=== PATIENT | female | born 1945 | race Caucasian/White ===

== ENCOUNTER 2018-02-09 11:27 | Inpatient (IN) ==
[2018-02-09] MEDS ORDERED: Nitroglycerin 0.4 MG TAB.SUBL SL ONE (11:35)
[2018-02-09] MEDS ORDERED: Ondansetron 4 MG/2 ML VIAL IVP ONE (11:35)
[2018-02-09] MEDS ORDERED: *HR* Ticagrelor 90 MG TABLET PO ONE (11:36)
[2018-02-09] MEDS ORDERED: *HR* Heparin 5,000 UNIT/ML VIAL IVP PRN ×2 (11:37)
[2018-02-09] MEDS ORDERED: *HR* Heparin 5,000 UNIT/ML VIAL IVP ONE (11:37)
--- NOTE | 2018-02-09 11:41 | Emergency Department Note ---
Disposition Clinical Impression: STEMI (ST elevation myocardial infarction) Qualifiers: Involved coronary artery: LAD coronary artery Qualified Code(s): I21.02 - ST elevation (STEMI) myocardial infarction involving left anterior descending coronary artery Disposition: Admitted As Inpatient Referrals: NONE,PCP [Primary Care Provider] - Forms: ED Satisfaction Letter Time of Disposition: 11:50 Chest Pain HPI - General Chief Complaint: ED Chest Pain Stated Complaint: Chest Pain Time Seen by Provider: 02/09/18 11:38 Source: patient, EMS Mode of arrival: EMS Limitations: no limitations Vital Signs Reviewed: Yes Nursing Notes Reviewed: Yes - History of Present Illness HPI Narrative: Patient is a 72-year-old female that presents the emergency department for chest pain. Patient states this is been intermittent over the last couple of days. Patient states that she tried taking nitroglycerin yesterday which provided a small amount of relief. States that her chest pain developed today and states that his a heavy pain on her chest and radiates down both arms. Patient denies ever having a previous heart attack but states that she has had angina in the past. Patient states that she has had a catheterization multiple years ago but has never had stents placed. Patient was given aspirin and nitroglycerin in prior to arrival. Family reported that the patient has been living in a home without electricity for the past 2 months. Severity scale (1-10): 9 - Related Data Allergies Allergy/AdvReac Type Severity Reaction Status Date / Time No Known Allergies Allergy Verified 02/09/18 11:49 All systems ED: reviewed and negative except as stated. Cardiovascular: Reports: chest pain Respiratory: Reports: dyspnea Chest Pain PMH - Past Medical History Medical history: Reports: COPD, diabetes, hyperlipidemia Psychiatric history: Reports: anxiety - Social History Smoking Status: Never smoker Alcohol use: Reports: none Drug use: Reports: marijuana Physical Exam - General Limitations: no limitations General appearance: alert, in no apparent distress - Head Head exam: atraumatic, normocephalic - Eye Eye exam: Present: normal appearance, EOMI - Neck Neck exam: Present: normal inspection, full ROM, trachea midline - Respiratory Respiratory exam: Present: normal lung sounds bilaterally. Absent: respiratory distress, wheezes - Cardiovascular Cardiovascular exam: Present: regular rate, normal rhythm, normal heart sounds, +S1, +S2 - Abdominal Exam Abdominal exam: Present: soft, Non-Tender, normal bowel sounds - Neurological Exam Neurological exam: Present: alert, oriented X3 - Psychiatric Psychiatric exam: Present: normal affect, normal mood - Skin Skin exam: Present: warm, dry, intact Course - Reevaluation(s) Reevaluation #2: After discussion with Dr. Jennifer Jaffe a STEMI alert has been called. They are EKG changes and the patient is actively having chest pain. STEMI alert was called at 1147. Patient was started on nitroglycerin, heparin and polenta here in the emergency department. Time: 11:47 Vital Signs Temperature 98.4 F 02/09/18 11:28 Pulse Rate 91 02/09/18 11:28 Respiratory Rate 20 02/09/18 11:28 Blood Pressure 156/93 02/09/18 11:28 O2 Sat by Pulse Oximetry 96 02/09/18 11:28 Temperature 98.4 F 02/09/18 11:28 Pulse Rate 87 02/09/18 12:13 Respiratory Rate 22 02/09/18 12:13 Blood Pressure 160/101 02/09/18 12:13 O2 Sat by Pulse Oximetry 98 02/09/18 12:16 Oxygen Delivery Oxygen Delivery Nasal Cannula Chest Pain - MDM Narrative Medical decision making narrative: Prehospital EKG was concerning for STEMI. There is elevations in lead 3 and aVF. Upon arrival to the emergency Department EKG was repeated after the patient had nitroglycerin in route. The elevations were minimal in lead 3 and aVF had resolved. There are T-wave inversions in the lateral leads which appear to be new at this time. Dr. Jennifer Jaffe was called and the EKGs were sent to her for review. Patient will be admitted to the hospital for cardiac catheterization and further evaluation and management. Patient's troponin was elevated at 0.72. Glucose was 404, chest x-ray was negative. The remainder the laboratory testing was unremarkable. The patient will be admitted for cardiac catheterization further evaluation and management this time. - Medical Records Medical records reviewed: Yes I reviewed the patient's medical records. - Lab Data Lab results reviewed: Yes I reviewed the patient's lab results. Result diagrams: 02/09/18 11:44 02/09/18 11:44 Lab Results 02/09/18 02/09/18 02/09/18 Range/Units 11:44 11:44 11:44 WBC 7.8 (4.3-11.1) K/mcL RBC 5.38 H (3.82-4.97) M/mcL Hgb 15.7 H (11.5-15.4) g/dL Hct 44.8 (35.3-44.9) % MCV 83.3 (83.0-100.0) fL MCH 29.2 (28.0-33.3) pg MCHC 35.0 (31.6-35.5) g/dL RDW 12.9 (11.5-14.5) % Plt Count 214 (140-400) K/mcL MPV 10.8 (9.4-12.4) fL Immature Gran % 1.1 (0-4) % Seg Neutrophils % 64.1 % Lymphocytes % 23.8 % Monocytes % 7.9 % Eosinophils % 2.3 % Basophils % 0.8 % Neutrophils # 5.0 (1.6-8.9) K/mcL Lymphocytes # 1.9 (0.6-4.6) K/mcL Monocytes # 0.6 (0.0-1.3) K/mcL Eosinophils # 0.2 (0.0-0.6) K/mcL Basophils # 0.1 (0.0-0.2) K/mcL PT 11.3 (9.4-12.1) Seconds INR 1.0 APTT 31.6 (26.0-36.0) Seconds Sodium 134 L (136-145) mEq/L Potassium 4.5 (3.5-5.1) mEq/L Chloride 100 (98-107) mEq/L Carbon Dioxide 21 L (23-29) mEq/L BUN 20 (8-23) mg/dL Creatinine 0.89 (0.60-1.20) mg/dL Est GFR ( Amer) > 60 (> 60) Est GFR (Non-Af Amer) > 60 (> 60) BUN/Creatinine Ratio 22 (6-26) Glucose 404 H (70-105) mg/dL Calculated Osmolality 298 (280-300) Calcium 8.9 (8.6-10.3) mg/dL Troponin I 0.72 H* (< 0.04) ng/mL - Radiology Data Radiology results reviewed: Yes I reviewed the patient's radiology results. Chest X-Ray 02/09/18 11:35 IMPRESSION: Negative portable study. D/ / Danielle Ramirez Cha, MD / Danielle Ramirez Cha, MD Interpreting Provider: Danielle Ramirez Cha, MD - EKG Data EKG attestation: Yes I reviewed and interpreted this EKG. EKG results narrative: EKG shows a sinus rhythm at a rate of 93 bpm, MI interval of 156, temperature 144, QTc of 452 and a normal axis. There are some T-wave inversions in the lateral leads as well as minimal elevation in lead 3. This is improved from previous EKG I was able prehospital transmission which showed elevations in lead 3 and aVF. EKG from 12/07/14 showed no ischemic changes.
--- NOTE | 2018-02-09 11:43 | Emergency Department Note ---
Disposition Clinical Impression: ST elevation myocardial infarction (STEMI) Qualifiers: Involved coronary artery: LAD coronary artery Qualified Code(s): I21.02 - ST elevation (STEMI) myocardial infarction involving left anterior descending coronary artery Disposition: Still a Patient Referrals: NONE,PCP [Primary Care Provider] - General Adult HPI - General Chief complaint: ED Chest Pain Stated complaint: Chest Pain Time Seen by Provider: 02/09/18 11:38 Source: EMS Limitations: no limitations - History of Present Illness Pain Scale: 9 Past Medical History - Past Medical History Medical history: Reports: COPD, diabetes, hyperlipidemia Psychiatric history: Reports: anxiety - Social History Smoking Status: Never smoker Smokeless Tobacco Status: No Alcohol use: Reports: none Drug use: Reports: marijuana Physical Exam - General Limitations: no limitations General appearance: alert, in no apparent distress Course - Reevaluation(s) Reevaluation #1: Attestation note I examined this patient and my medical decision-making was reviewed with the emergency medicine resident. I agree with the documented findings, disposition and treatment plan as described except to the extent set forth below. Patient seen with emergency medicine resident Dr. Wes Lau, Please see a copy of his note for details of the H&P, ED evaluation, management and disposition. I have independently evaluated the patient and confirmed appropriate portions of the history and physical exam. Briefly: 72-year-old female by EMS for chest pain. It was called in this possible STEMI alert. EKG transferred by EMS did show ST elevation in leads 3 and aVF. However upon arrival in the emergency department after nitroglycerin was given by EMS crew patient only has mild ST elevation in lead 3 alone but T- wave inversions rectal lateral leads which appear to be new. Dr. Jaffe's scanning manager on-call we both securely tested the image of the EKG she will review. She requested relented and nitroglycerin and heparin drip which is being accomplished screening labs chest x-ray. Providing 45 minutes critical care service for this patient. Admission is anticipated however we have not excluded the possibility of going to the catheter lab. Disposition pending. Time: 11:41 Vital Signs Temperature 98.4 F 02/09/18 11:28 Pulse Rate 91 02/09/18 11:28 Respiratory Rate 20 02/09/18 11:28 Blood Pressure 156/93 02/09/18 11:28 O2 Sat by Pulse Oximetry 96 02/09/18 11:28 Temperature 98.4 F 02/09/18 11:28 Pulse Rate 91 02/09/18 11:28 Respiratory Rate 20 02/09/18 11:28 Blood Pressure 156/93 02/09/18 11:28 O2 Sat by Pulse Oximetry 96 02/09/18 11:28 Oxygen Delivery Oxygen Delivery Room Air
[2018-02-09] MEDS ORDERED: Heparin 25,000 UNIT/500 ML D5W 25,000 UNIT/500 ML BAG IVC SCH (11:45)
[2018-02-09] MEDS ORDERED: *HR* LORazepam 2 MG/ML VIAL IVP ONE (11:49)
[2018-02-09 11:50] LABS: Basophils # 0.1 K/mcL (0.0-0.2); Basophils % 0.8 %; Eosinophils # 0.2 K/mcL (0.0-0.6); Eosinophils % 2.3 %; Hematocrit 44.8 % (35.3-44.9); Hemoglobin 15.7 g/dL (11.5-15.4); Immature Granulocytes % 1.1 % (0-4); Lymphocytes # 1.9 K/mcL (0.6-4.6); Lymphocytes % 23.8 %; Mean Corpuscular Hemoglobin 29.2 pg (28.0-33.3); Mean Corpuscular Volume 83.3 fL (83.0-100.0); Mean Platelet Volume 10.8 fL (9.4-12.4); Monocytes # 0.6 K/mcL (0.0-1.3); Monocytes % 7.9 %; Platelet Count 214 K/mcL (140-400); Red Blood Count 5.38 M/mcL (3.82-4.97); Red Cell Distribution Width 12.9 % (11.5-14.5); Segmented Neutrophils % 64.1 %
[2018-02-09 11:57] LABS: Prothrombin Time 11.3 Seconds (9.4-12.1)
[2018-02-09 12:00] LABS: Activated Partial Thrombo Time 31.6 Seconds (26.0-36.0)
[2018-02-09] MEDS ORDERED: 0.9 % Sodium Chloride 1,000 ML ONE ×4 (12:00→19:44)
[2018-02-09 12:14] LABS: Troponin I 0.72 ng/mL (< 0.04)
[2018-02-09] MEDS ORDERED: *HR* Midazolam HCl 2 MG/2 ML VIAL ONE (12:21)
[2018-02-09] MEDS ORDERED: *HR* FentaNYL (PF) 100 MCG/2 ML VIAL ONE (12:22)
[2018-02-09] MEDS ORDERED: Heparin 1,000 UNITS/500 mL 500 ML ONE (12:22)
[2018-02-09] MEDS ORDERED: Nitroglycerin 1,000 MCG/10 ML VIAL IV ONE ×2 (12:22→13:02)
[2018-02-09] MEDS ORDERED: ISOVUE-370 200 ML INFUS..BTL IV ONE (12:22)
[2018-02-09] MEDS ORDERED: *HR* Heparin 10,000 UNIT/10 ML VIAL ONE (12:22)
[2018-02-09 12:34] LABS: BUN/Creatinine Ratio 22 (6-26); Blood Urea Nitrogen 20 mg/dL (8-23); Calcium 8.9 mg/dL (8.6-10.3); Carbon Dioxide 21 mEq/L (23-29); Chloride 100 mEq/L (98-107); Glucose 404 mg/dL (70-105); Osmolality,Calculated 298 (280-300); Potassium 4.5 mEq/L (3.5-5.1); Sodium 134 mEq/L (136-145); eGFR For African Americans > 60 (> 60); eGFR For Non-African Americans > 60 (> 60)
[2018-02-09] MEDS ORDERED: *HR* Bivalirudin 250 MG VIAL IVC ONE ×2 (12:47→13:19)
[2018-02-09] MEDS ORDERED: 0.9 % Sodium Chloride 250 ML ONE ×3 (12:58→13:23)
[2018-02-09] MEDS ORDERED: *HR* Adenosine 6 MG/2 ML VIAL IVP ONE ×2 (13:00→13:02)
[2018-02-09] MEDS ORDERED: Ondansetron 4 MG/2 ML VIAL ONE (13:25)
--- NOTE | 2018-02-09 14:05 | Cardiology History & Physical ---
Date of Encounter: 02/09/18 Time of Encounter: 13:58 Assessment and Plan (1) ST elevation myocardial infarction (STEMI) Current Visit: Yes Status: Acute The assessment and plan as outlined above was discussed with the patient and/or family members who expressed understanding and agreement. All questions were answered. Presents with STEMI. Emergent LHC recommended. Asa, statin, and bb. Patient agreed with procedure. Qualifiers: Involved coronary artery: LAD coronary artery Qualified Code(s): I21.02 - ST elevation (STEMI) myocardial infarction involving left anterior descending coronary artery (2) DM type 2 (diabetes mellitus, type 2) Current Visit: No Status: Chronic The assessment and plan as outlined above was discussed with the patient and/or family members who expressed understanding and agreement. All questions were answered. Patient without diabetic medications for long period of time. Will consult hospitalist to assist in medication recommendation. Will need to establish with PCP. Qualifiers: Diabetes mellitus long chain beamer insulin use: without longterm use Diabetes mellitus complication status: without complication Qualified Code(s): E11.9 - Type 2 diabetes mellitus without complications History of Present Illness Chief complaint: Chest pain HPI: Ms. Nichole is a 72 year old female with past medical history of HTN , HLD and DM type II who presented with increasing chest pain. C/o intermittent chest pain radiating to her back over the last three days. 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 She also noticed nausea and SOB. On arrival to the ED EKG completed and showed ST elevation. Emergent LHC recommended. She denied prior history of CAD. Reports living without electricity or utilities for several months. Family states that she has not been able to obtain medications for her diabetes for a long time. Past Med Surg Social Fam HX - Past Medical History Attestation: Yes The following information was validated with the patient. Medical history: COPD, diabetes, hyperlipidemia, hypertension Psychiatric history: anxiety - Social History Smoking Status: Never smoker Smokeless Tobacco Status: No Alcohol use: none Drug use: marijuana Medications and Allergies No Known Home Drugs 02/09/18 [History] 3 Allergy/AdvReac Type Severity Reaction Status Date / Time No Known Allergies Allergy Verified 02/09/18 13:31 All Systems Review: The remainder of the systems were reviewed and are negative Physical Examination Vital Signs Temp Pulse Resp BP Pulse Ox 02/09/18 12:16 98 02/09/18 12:13 87 22 160/101 99 02/09/18 11:57 97 18 157/99 97 02/09/18 11:28 98.4 F 91 20 156/93 96 Intake and Output 02/08/18 02/09/18 02/09/18 23:59 07:59 15:59 Other: Weight 99.79 kg Patient Weight 02/09/18 23:59 Weight 99.79 kg General: Conversant, No Apparent Distress HEENT: Atraumatic, Normocephaly, Mucus Membranes Moist Neck: No JVD, Normal carotid pulses Cardiac: Reg Rate and Rhythm, Normal S1 and S2, No Murmur Lungs: Normal Breath Sounds, No Wheeze, Rales, Rhonchi Neuro: Alert and responsive, No focal deficits noted Abdomen: Soft, Non-Tender Skin: No rashes noted on visualized skin Musculoskeletal: No Chest Wall Tenderness Extremities: No Clubbing, No Cyanosis, No Edema, Normal Pulses Results 02/09/18 11:44 02/09/18 11:44 - EKG Interpretation EKG results cardiology: personally reviewed
[2018-02-09] MEDS ORDERED: Nitroglycerin 0.4 MG TAB.SUBL SL PRN (14:07)
[2018-02-09] MEDS ORDERED: *HR* Dextrose 50 % in Water (Syg) 50 ML SYRINGE IVP PRN (14:07)
[2018-02-09] MEDS ORDERED: Dextrose Gel 15 GM/37.5 ML TUBE PO PRN ×2 (14:07)
[2018-02-09] MEDS ORDERED: D5% in Water 1,000 ML IVC PRN (14:07)
[2018-02-09] MEDS ORDERED: Abciximab 9 MG in 0.9 % Sodium Chloride 250 ML IVC SCH (14:15)
--- NOTE | 2018-02-09 14:27 | Internal Medicine Consult Note ---
Date of Encounter: 02/09/18 Time of Encounter: 14:27 - Assessment and plan (1) ST elevation myocardial infarction (STEMI) Current Visit: Yes Status: Acute Assessment and plan: Patient presenting with inferior wall ST segment elevation pleuritic chest pain. Status post percutaneous coronary intervention with drug-eluting stent to mid circumflex. Require staged PCI to LAD. Continue management per cardiology recommendations. On dual antiplatelet therapy. On statin. No longer having chest pain at this time. Qualifiers: Involved coronary artery: left circumflex coronary artery Qualified Code(s) : I21.21 - ST elevation (STEMI) myocardial infarction involving left circumflex coronary artery (2) DM type 2 (diabetes mellitus, type 2) Current Visit: Yes Status: Chronic Assessment and plan: Uncontrolled. Not taking any medications. Blood sugars were 404 in the ED. Will monitor blood sugars closely. Place her on sliding scale insulin coverage and long-acting insulin. Check A1c level. Diabetic diet when patient is able to eat Qualifiers: Diabetes mellitus intermodal customer service insulin use: without intermodal customer service use Diabetes mellitus complication status: with hypoglycemia Diabetes mellitus complication detail: without coma Qualified Code(s): E11.649 - Type 2 diabetes mellitus with hypoglycemia without coma (3) Essential (primary) hypertension Current Visit: Yes Status: Chronic Assessment and plan: Uncontrolled. Patient has been placed on Zestril and Toprol per cardiology recommendations. (4) Cardiomyopathy Current Visit: Yes Status: Acute Assessment and plan: Patient has year for 45% per cardiac catheterization report. We will get 2-D echocardiogram. Follow cardiology recommendations. Qualifiers: Cardiomyopathy type: ischemic Qualified Code(s): I25.5 - Ischemic cardiomyopathy - Time Spent With Patient Total time spent is greater than 50% in coordination of care (as documented) at patient's floor/unit and/or counseling patient: Internal Medicine - CN: HPI - Data of Consult Patient: new to practice Consult date: 02/09/18 Requesting Physician: Jennifer Jaffe - Consult Narrative Reason for consult: Diabetes management History of present illness: Ms. Nichole is a 72 year old female patient with a history of essential hypertension, diabetes who has not followed up with physician for at least 2 years and has not been taking her medications presented to the ER with complaints of chest pain. Symptoms began 2 days back but she developed severe chest pain last night and called EMS. She was suspected of having ST elevation OH and underwent left heart catheterization. She has been found to have left circumflex stenosis and LAD stenosis. She underwent stent placement to left circumflex artery. She is scheduled for a staged for PCI to left anterior descending artery later. She has been found to have elevated blood sugars and so we have been consulted to help manage this. Patient was previously on oral medications for her diabetes. She denies any shortness of breath at this time but did have shortness of breath with her chest pain earlier. She also has occasional lower extremity swelling. She felt nauseated while she was down in the catheter lab. She also complains of chronic swelling in her right shoulder region with decreased range of motion. Past Med Surg Social Fam HX - Past Medical History Attestation: Yes The following information was validated with the patient. Source: patient Medical history: COPD, diabetes, hyperlipidemia, hypertension Psychiatric history: anxiety - Social History Smoking Status: Never smoker Smokeless Tobacco Status: No Alcohol use: none Drug use: marijuana - Additional Family History Additional family history: Family history reviewed and found to be noncontributory at this time. All systems: reviewed and no additional remarkable complaints except as stated - Constitutional Constitutional: malaise - EENT Eyes: as per HPI Ears: as per HPI Nose, mouth and throat: as per HPI - Cardiovascular Cardiovascular ROS IM: chest pain - Respiratory Respiratory: dyspnea, no cough, no change in phlegm color, no pain with cough - Gastrointestinal Gastrointestinal: nausea, no abdominal pain, no hematemesis, no vomiting - Musculoskeletal Musculoskeletal ROS IM: as per HPI, joint swelling - Neurological Neurological ROS: no abnormal movements, no abnormal speech, no restless legs, no tingling, no tremor(s), no vertigo Internal Medicine - CN: Meds No Known Home Drugs 02/09/18 [History] 3 Allergy/AdvReac Type Severity Reaction Status Date / Time No Known Allergies Allergy Verified 02/09/18 13:31 Internal Medicine - CN: Exam - Constitutional Vitals: Temp Pulse Resp BP Pulse Ox 98.4 F 87 22 160/101 98 02/09/18 11:28 02/09/18 12:13 02/09/18 12:13 02/09/18 12:13 02/09/18 12:16 General appearance IM: Present: cooperative, mild distress, A&O X 3, morbidly obese, answers questions appropriately - Eye Eye exam: Present: EOMI, PERRL - Respiratory Respiratory exam: Present: prolonged expiratory phase. Absent: chest wall tenderness, decreased breath sounds, rales, respiratory distress, wheezes - Cardiovascular Cardiovascular exam IM: Present: RRR, +S1, +S2. Absent: tachycardia - GI/Abdominal GI/Abdominal exam IM: Present: normal bowel sounds, soft, no peritoneal signs. Absent: tenderness - Expanded Upper Extremities Exam Shoulder exam: Present: swelling. Absent: full ROM - Psychiatric Psychiatric exam: Present: anxious - Skin Skin exam IM: Present: dry, intact Internal Medicine - CN: Reslt - Labs CBC & Chem 7: 02/09/18 11:44 02/09/18 11:44 - ABG Interpretation ABG results: PT/INR, D-dimer PT 11.3 Seconds (9.4-12.1) 02/09/18 11:44 Consult Discharge Plan - Plan Referrals: NONE,PCP [Primary Care Provider] -
--- NOTE | 2018-02-09 14:33 | Invasive Diagnostic Lab Proc ---
Name: Laquita Nichole Date of Study: 02/09/2018 Date: 1945 Ht: 61.8in Medical Record#: [id number] Age: 72 Wt: 219.80lb Gender: Female BSA: 1.99 Order #: [id number] BMI: 40.45 Physicians Procedure Physician: Jennifer Jaffe MD, [facility] Referring MD: Referring MD: Staff Name Position Time In JavanLeyda RN Monitor 12:42 PM Esteban James RN Military Technology Specialist 12:42 PM Mela Brennan RT (R) Scrub 12:42 PM Indications Indication STEMI Procedures Performed Procedure L HRT ARTERY/VENTRICLE ANGIO PRQ CARD REVASC TX 1 VSL Pre-Procedure Checklist Informed consent is complete signed and on chart. H&P is on chart. ID band is on and ID verified with patient. Patient NPO for procedure The procedure was described for the patient and questions were answered. Blood Pressure: 160/101 ECG is on chart. Rhythm: Sr w/ bbb Plan of Care Patient will tolerate the procedure without complications. Adequate level of comfort will be maintained. Hemodynamics will remain stable Patient will recover from procedure without complications. Respiratory function will be maintained. Cardiac rhythm will remain stable. Patient temperature will be maintained. Patient and/or family have verbalized understanding of the procedure. Patient Education Chief Complaint/Reason for Test: Cardiac Cath Developmental Category: Geriatric (65+ years) Developmentally Appropriate for Age: Yes Learning Barriers: None Education Needs: Procedure Education Method: Verbal Information Taught: Cardiac Cath Educational Evaluation: Able to repeat information Intravenous Access Time IV Size Location DC'd Fluid/Drip Rate Units RN 12:31 PM 20g 1 08/15" Patent On Arrival Lt Antecubital 0.9NaCl 25 ml/hr Esteban James RN Allergies NKDA NKA No Known Allergies Vital Signs Time BP (mmHg) HR (bpm) O2 Sat. RR (bpm) LOC 12:42 PM / % 5 = Fully awake and oriented or at pre-proc level 12:42 PM / % 4 = Oriented but drowsy 12:58 PM / % 4 = Oriented but drowsy 01:13 PM / % 4 = Oriented but drowsy 01:28 PM / % 4 = Oriented but drowsy 12:40 PM 149 / 84 91 98 % 12:45 PM 126 / 61 84 95 % 12:50 PM 122 / 60 87 96 % 12:55 PM 116 / 54 79 97 % 12:57 PM 114 / 59 77 96 % 01:00 PM 83 / 32 77 94 % 01:02 PM 86 / 45 80 95 % 01:05 PM 65 / 32 79 94 % 01:10 PM 80 / 28 77 96 % 01:12 PM 76 / 36 76 92 % 01:15 PM 77 / 28 76 94 % 01:20 PM 120 / 59 76 95 % 01:25 PM 114 / 67 81 94 % 01:30 PM 130 / 80 106 91 % 01:35 PM 108 / 62 91 95 % 01:40 PM 102 / 56 83 95 % 01:45 PM 94 / 58 79 97 % 01:50 PM 107 / 55 % Procedural Medications Time Medication Dose Units Method Given By 12:42 PM Oxygen 2 L/min nasal cannula Esteban James RN 12:42 PM Versed 2 mg Intravenous HenthorneEsteban RN 12:42 PM Fentanyl 50 mcg Intravenous JassthornEsteban hernandez RN 12:43 PM Lidocaine 2% 20 ml Subcutaneous Jennifer Jaffe MD, FACC 12:48 PM Angiomax 0.75mg/kg bolus: 15 ml Intravenous Esteban James RN 12:49 PM Angiomax 1.75mg/kg/hr: 35 ml/hr Intravenous Esteban James RN 12:58 PM Nitroglycerin 200 mcg Intracoronary Jennifer Jaffe MD, FACC 12:58 PM Nitroglycerin 200 mcg Intracoronary Jennifer Jaffe MD, FACC 01:01 PM Reopro Bolus: 12.4 ml Intracoronary Jennifer Jaffe MD, FACC 01:04 PM Nitroglycerin 200 mcg Intracoronary Jennifer Jaffe MD, FACC 01:05 PM Nitroglycerin 200 mcg Intracoronary Jennifer Jaffe MD, FACC 01:05 PM Adenosine 400 mcg Intracoronary Jennifer Jaffe MD, FACC 01:06 PM Adenosine 400 mcg Intracoronary Jennifer Jaffe MD, FACC 01:06 PM Nitroglycerin 200 mcg Intracoronary Jennifer Jaffe MD, FACC 01:17 PM Adenosine 400 mcg IntracoronJennifer Avendano MD, FACC 01:19 PM Dopamine 5 mcg/kg/min Intravenous Esteban James RN 01:19 PM Adenosine 400 mcg Intracoronary Esteban James RN 01:20 PM Nitroglycerin 200 mcg Intracoronary Jennifer Jaffe MD, FACC 01:28 PM Zofran 8 mg Intravenous Leyda Edouard RN 01:35 PM Dopamine mg Dc'd Esteban James RN 01:45 PM Reopro 9mg/250ml D5W: 10 mcg/min Intravenous Esteban James RN 01:46 PM Angiomax 1.75mg/kg/hr: ml Dc'd Esteban James RN 01:20 PM Fentanyl 50 mcg Intravenous Esteban James RN ASA Classification: CLASS II- Mild systemic disease (i.e. well-controlled diabetes, hypertension, asthma, cigarette smoking) Ben Score Preprocedure Postprocedure Activity 2- Moves 4 extremities sustained head lift Activity 2- Moves 4 extremities sustained head lift Circulation 2- SBP +/= 20 points of pre-anesthetic level Circulation 2- SBP +/= 20 points of pre-anesthetic level Consciousness 2- Awake and alert oriented x 3 Consciousness 2- Awake and alert oriented x 3 O2 Saturation 2- Able to maintain O2 satruation of 92% on room air O2 Saturation 2- Able to maintain O2 satruation of 92% on room air Respiratory 2- Able to deep breathe and cough well Respiratory 2- Able to deep breathe and cough well Total Score 10 Total Score 10 Contrast Agent: Isovue Diagnostic Contrast: 183 ml Total Contrast: 183 ml Fluoro Dose: 84788 mGy Activated Clotting Time Time Seconds to Clot 02:02 PM 390 Procedure Log Time Note Enter By 12:17 PM CathStat 12:31 PM 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 well-controlled diabetes, hypertension, asthma, cigarette smoking) scoates 12:31 PM Meet and greet completed scoates 12:31 PM Sign in performed according to hospital policy. scoates 12:32 PM Procedure start 12:32 scoates 12:39 PM Vitals capture started with the following parameters, Patient=Adult, Interval=5 min, Initial Sispdigv=789 mmHg, Deflation Rate=5 mmHg, Cuff placed on Right Arm 12:40 PM Hair removed from procedure site in emergency department using clippers. Bilateral groin prepped with Chloraprep by Leyda Edouard RN, then patient was draped. Skin intact. scoates 12:40 PM HR=91 bpm, RYWR=100/84 mmhg, SpO2=98.0 %, Comment=sr bbb 12:41 PM Time out performed according to hospital policy scoates 12:42 PM Time: 12:42 Oxygen on at 2 L/min per nasal cannula by Esteban James RN scoates 12:42 PM Time: 12:42 Patient comfortable and pain free:no. Pt states that her chest pain in 03/21 at this time scoates 12:42 PM Time: 12:42LOC: 5 = Fully awake and oriented or at pre-proc level scoates 12:42 PM Time: 12:42 Versed 2 mg Intravenous Given by Esteban James RN scoates 12:42 PM Time: 12:42 Fentanyl 50 mcg Intravenous Given by Esteban James RN scoates 12:42 PM Leyda Edouard RN Position: Monitor Time in: 12:42 scoates 12:42 PM Esteban James RN Position: Military Technology Specialist Time in: 12:42 scoates 12:42 PM Mela Brennan RT (R) Position: Scrub Time in: 12:42 scoates 12:42 PM Patient charges- Angio tray pack, Navilyst 3mm J, Pulse Oximetry and ACIST tubing and transducer scoates 12:42 PM Case Delayed No, Stemi scoates 12:43 PM Pressure channel 1 zero failed. 12:43 PM Pressure channel 1 zero failed. 12:43 PM Pressure channel 1 zeroed. 12:43 PM Time: 12:43 20 ml Lidocaine 2% to right groin Subcutaneous Given by Jennifer Jaffe MD, [facility] scoates 12:44 PM Access obtained by percutaneous puncture. 6Fr 10cm Terumo Stringer sheath placed in right Femoral artery. [id number] scoates 12:44 PM 5Fr FL 4 catheter inserted over the wire [facility] scoates 12:45 PM HR=84 bpm, IJMU=372/61 mmhg, SpO2=95.0 % 12:45 PM Recorded Pressure: Ao, HR=76, Condition=Condition 1 (Aorta) Ao 127/83/103 12:46 PM LCA angiography performed in multiple views. scoates 12:46 PM Catheter removed scoates 12:46 PM 5Fr FR 4 catheter inserted over the wire DN scoates 12:46 PM RCA angiography performed in multiple views. scoates 12:47 PM Recorded Pressure: Ao, HR=83, Condition=Condition 1 (Aorta) Ao 130/47/101 12:48 PM Catheter removed scoates 12:48 PM PCI Status Emergency scoates 12:48 PM 6Fr XB LAD 3.5 [place] Bright-Tip guide catheter was used to cannulate the PCI vessel successfully. reused? No scoates 12:48 PM .014 Prowater 180cm guide wire across target lesion- successful. reused? No scoates 12:48 PM Inflation device was opened. scoates 12:49 PM Time: 12:48 Angiomax 0.75mg/kg bolus: 15 ml Intravenous Given by Esteban James RN Diaz pump scoates 12:49 PM Time: 12:49 Angiomax 1.75mg/kg/hr: 35 ml/hr Intravenous Given by Esteban James RN Diaz pump scoates 12:49 PM Coronary Dominance: right scoates 12:49 PM Lesion found in Mid Circumflex. Pre Stenosis: 99 Pre BING Flow: 2: Partial Flow/Perfusion (> 1 but < 3) scoates 12:49 PM 2.5 mm x 15 mm Emerge Monorail balloon across target lesion- successful. reused? No scoates 12:50 PM Recorded Pressure: Ao, HR=88, Condition=Condition 1 (Aorta) Ao 144/79/108 12:50 PM HR=87 bpm, DKLJ=692/60 mmhg, SpO2=96.0 %, Comment=sr bbb 12:51 PM Balloon inflated @ 10 geri for 20 seconds scoates 12:51 PM Recorded Pressure: Ao, HR=87, Condition=Condition 1 (Aorta) Ao 134/85/108 12:52 PM Balloon inflated @ 12 geri for 20 seconds scoates 12:54 PM Balloon catheter removed intact. scoates 12:55 PM HR=79 bpm, ANAW=651/54 mmhg, SpO2=97.0 %, Comment=sr bbb 12:55 PM 3.5mm x 28mm Synergy drug-eluting stent across target lesion- successful Lot #[id number] scoates 12:55 PM Stent deployed @ 12 geri for 30 seconds scoates 12:56 PM Stent balloon reinflated @ 16 geri for 15 seconds scoates 12:56 PM NIBP STAT measurement started. 12:57 PM Stent delivery system removed intact. scoates 12:57 PM HR=77 bpm, GEMZ=011/59 mmhg, SpO2=96.0 %, Comment=sr bbb 12:58 PM Time: 12:42LOC: 4 = Oriented but drowsy scoates 12:58 PM Time: 12:42 Patient comfortable and pain free: Yes scoates 12:58 PM Time: 12:58 Nitroglycerin 200 mcg Intracoronary Given by Jennifer Jaffe MD, [facility] scoates 12:58 PM Time: 12:58 Nitroglycerin 200 mcg Intracoronary Given by Jennifer Jaffe MD, [facility] scoates 12:58 PM Recorded Pressure: Ao, HR=79, Condition=Condition 1 (Aorta) Ao 122/76/97 01:00 PM HR=77 bpm, NIBP=83/32 mmhg, SpO2=94.0 % 01:01 PM Time: 13:01 Reopro Bolus: 12.4 ml Intracoronary Given by Jennifer Jaffe MD, [facility] Diaz pump scoates 01:01 PM NIBP STAT measurement started. 01:02 PM HR=80 bpm, NIBP=86/45 mmhg, SpO2=95.0 %, Comment=sr bbb 01:04 PM pt is having 10/10 chest pain scoates 01:04 PM Stent delivery system removed intact. scoates 01:05 PM HR=79 bpm, NIBP=65/32 mmhg, SpO2=94.0 %, Comment=sr bbb 01:05 PM Pressure channel 1 zeroed. 01:05 PM Time: 13:04 Nitroglycerin 200 mcg Intracoronary Given by Jennifer Jaffe MD, [facility] scoates 01:05 PM Time: 13:05 Nitroglycerin 200 mcg Intracoronary Given by Jennifer Jaffe MD, [facility] scoates 01:06 PM Time: 13:05 Adenosine 400 mcg Intracoronary Given by Jennifer Jaffe MD, [facility]AC scoates 01:06 PM Time: 13:06 Adenosine 400 mcg Intracoronary Given by Jennifer Jaffe MD, [facility] scoates 01:06 PM Time: 13:06 Nitroglycerin 200 mcg Intracoronary Given by Jennifer Jaffe MD, [facility] scoates 01:06 PM Recorded Pressure: Ao, HR=77, Condition=Condition 1 (Aorta) Ao 89/49/68 01:07 PM 2.5x15 balloon reinserted scoates 01:08 PM Recorded Pressure: Ao, HR=77, Condition=Condition 1 (Aorta) Ao 91/63/76 01:09 PM NIBP STAT measurement started. 01:10 PM HR=77 bpm, NIBP=80/28 mmhg, SpO2=96.0 %, Comment=sr bbb 01:11 PM Recorded Pressure: Ao, HR=76, Condition=Condition 1 (Aorta) Ao 91/57/73 01:11 PM 2.5x15 balloon removed not reinflated scoates 01:12 PM NIBP STAT measurement started. 01:12 PM 3.75 mm x 20mm NC Trek Rx balloon across target lesion- successful. reused? No scoates 01:12 PM HR=76 bpm, NIBP=76/36 mmhg, SpO2=92.0 %, Comment=sr bbb 01:13 PM Time: 12:58 Patient comfortable and pain free: Yes scoates 01:13 PM Time: 12:58LOC: 4 = Oriented but drowsy scoates 01:14 PM Recorded Pressure: Ao, HR=76, Condition=Condition 1 (Aorta) Ao 99/63/79 01:14 PM Balloon inflated @ 18 geri for 15 seconds scoates 01:15 PM HR=76 bpm, NIBP=77/28 mmhg, SpO2=94.0 %, Comment=sr bbb 01:16 PM Balloon catheter removed intact. scoates 01:17 PM Time: 13:17 Adenosine 400 mcg Intracoronary Given by Jennifer Jaffe MD, [facility] scoates 01:17 PM Recorded Pressure: Ao, HR=84, Condition=Condition 1 (Aorta) Ao 99/66/81 01:19 PM Time: 13:19 Dopamine 5 mcg/kg/min Intravenous Given by Esteban James RN Diaz pump scoates 01:19 PM Time: 13:19 Adenosine 400 mcg Intracoronary Given by Esteban James RN scoates 01:19 PM Recorded Pressure: Ao, HR=79, Condition=Condition 1 (Aorta) Ao 128/71/96 01:20 PM Time: 13:20 Fentanyl 50 mcg Intravenous Given by Esteban James RN scoates 01:20 PM HR=76 bpm, RQEQ=426/59 mmhg, SpO2=95.0 %, Comment=sr bbb 01:21 PM Time: 13:20 Nitroglycerin 200 mcg Intracoronary Given by Jennifer Jaffe MD, [facility] scoates 01:21 PM Recorded Pressure: Ao, HR=77, Condition=Condition 1 (Aorta) Ao 128/80/99 01:21 PM Time: 13:13 Patient comfortable and pain free: No scoates 01:21 PM Complaint: Pain; Pain Score: 10 (1-10); Pain Location: Chest; Relief Measure: Medication; Response: . scoates 01:25 PM HR=81 bpm, ZRQV=060/67 mmhg, SpO2=94.0 % 01:28 PM Time: 13:13LOC: 4 = Oriented but drowsy scoates 01:28 PM Time: 13:28 Zofran 8 mg Intravenous Given by Leyda Edouard RN scoates 01:28 PM Leyda Green RN from ICU arrived to assist with procedure scoates 01:29 PM Recorded Pressure: LV, OU=833, Condition=Condition 1 (Left Ventricle) LV 157/3/21 01:29 PM Recorded Pressure: LV, Ao, UR=504, Condition=Condition 1 (Left Ventricle) LV 130/62/85, (Aorta) Ao 118/90/105 01:30 PM Balloon catheter removed intact. scoates 01:30 PM Guide catheter removed intact. scoates 01:30 PM Guide wire removed intact. scoates 01:30 PM LR=688 bpm, IHZN=346/80 mmhg, SpO2=91.0 %, Comment=sr bbb 01:30 PM 5Fr Pigtail catheter inserted over the wire [facility] scoates 01:30 PM Catheter selectively placed in left ventricle scoates 01:30 PM Bolus angiogram of left Ventricle complete: 8 ml/sec for a total of 24 mls scoates 01:30 PM Catheter removed scoates 01:30 PM Bolus angiogram of right Femoral complete: 4 ml/sec for a total of 7 mls scoates 01:32 PM Procedure completed at 13:32 02/09/2018 scoates 01:32 PM Did you address BING flow and Dominance? Yes scoates 01:32 PM Sign out completed: Radiation Dose 1636 mGy, 73676 cGy/cm2 Fluoro Time: 10.8 Isovue 370 - 200ml contrast 183 ml given by Jennifer Jaffe MD, [facility]. Complications: NoneCardiac Rehab Consult needed: YesConfirmed administered medications: Yes scoates 01:33 PM Sheath left in place to be pulled on floor/holding area scoates 01:33 PM Estimated Blood Loss: less than 20cc scoates 01:33 PM Post ECG Sr w/ bbb scoates 01:35 PM HR=91 bpm, MEYW=406/62 mmhg, SpO2=95.0 % 01:35 PM Time: 13:35 Dopamine mg Dc'd Given by Esteban James RN Diaz pump scoates 01:40 PM HR=83 bpm, QZMX=549/56 mmhg, SpO2=95.0 %, Comment=sr bbb 01:41 PM Time: 13:21 Patient comfortable and pain free: No scoates 01:43 PM Time: 13:28LOC: 4 = Oriented but drowsy scoates 01:43 PM attempted to change to a longer sheath, unable to advance scoates 01:44 PM standard sheath reinserted scoates 01:45 PM HR=79 bpm, NIBP=94/58 mmhg, SpO2=97.0 %, Comment=sr bbb 01:46 PM Time: 13:45 Reopro 9mg/250ml D5W: 10 mcg/min Intravenous Given by Esteban James RN Diaz pump scoates 01:46 PM Time: 13:46 Angiomax 1.75mg/kg/hr: ml Dc'd Given by Esteban James RN Diaz pump scoates 01:50 PM OUOL=597/55 mmhg, Comment=sr bbb 01:52 PM Post ECG Sr w/ bbb scoates 01:54 PM Post Blood Pressure 107/55 scoates 01:54 PM 13:54 Post Pulses Bilateral DP & PT 1+ scoates 01:54 PM pt states her chest pain is better but it is still 3/10 scoates 01:55 PM Information taught Cardiac Cath and PCI scoates 01:55 PM Education needs Procedure, Plan of Care, and Responsibilities of Patient in Care scoates 01:55 PM Learning barriers :None scoates 01:55 PM Education Methods Verbal scoates 01:55 PM Education evaluation Able to repeat information scoates 01:55 PM Site status No bleeding/hematoma - Rt Groin as reported by Mela Brennan RT (R) at 13:55 scoates 01:55 PM Opsite applied scoates 01:55 PM Plavix, Effient or Brilinta given No, given in ED scoates 01:55 PM Delay to floor No scoates 01:55 PM Family placed in consult room. scoates 01:55 PM Patient out of room: 13:55 scoates 01:55 PM Complications: None scoates 01:55 PM Fluoro Time: 10.8 scoates 01:55 PM Isovue 370 - 200ml contrast 183 ml given by . scoates 01:56 PM Radiation Dose 1660 mGy scoates 01:56 PM Lesion found in Proximal RCA. Pre Stenosis: 30 Pre BING Flow: scoates 01:57 PM Lesion found in Mid RCA. Pre Stenosis: 25 Pre BING Flow: scoates 01:57 PM Lesion found in Distal RCA. Pre Stenosis: 25 Pre BING Flow: scoates 01:57 PM Lesion found in Proximal LAD. Pre Stenosis: 40 Pre BING Flow: scoates 01:57 PM Lesion found in Mid LAD. Pre Stenosis: 99 Pre BING Flow: 3: Complete and Brisk Flow/Perfusion scoates 01:58 PM Lesion found in Distal LAD. Pre Stenosis: 95 Pre BING Flow: scoates 02:02 PM At 14:02 the ACT was 390 seconds. scoates 02:08 PM Report given to Luz MARTINEZ Pt taken to ICU Room #1. 14:08 scoates Complications Complication None None Hemodynamics Pressures Site Systolic/A Wave Diastolic/V Wave Mean AO 127 83 103 AO 130 47 101 AO 144 79 108 AO 134 85 108 AO 122 76 97 AO 89 49 68 AO 91 63 76 AO 91 57 73 AO 99 63 79 AO 99 66 81 AO 128 71 96 AO 128 80 99 LV 157 3 21 LV 130 62 85 AO 118 90 105 Post Procedure Information Blood Pressure: 107/55 mmHg Rhythm: Sr w/ bbb Post procedural instructions were given Closure Device Time Device Success/Fail 02/09/2018 1:56:00 PM Manual Compression - sheath to be pulled in ICU Site Checks Time Location Status Staff Sheath In? Note 01:55 PM Rt Groin No bleeding/hematoma Mela Brennan RT (R) Pulses Time Site Pre-Procedure Post-Procedure Note 1:54:00 PM Bilateral DP & PT 1+ 02/09/2018 12:35:00 PM Bilateral DP & PT 1+ Updated by Leyda Connelly RN on 02/09/2018 2:19:12 PM electronically signed on 02/09/2018 2:25:46 PM with status of Final
[2018-02-09] MEDS: Insulin LISPRO 300 UNITS/3 ML VIAL SQ SCH ×2 (15:39→20:47)
[2018-02-09] MEDS ORDERED: Insulin LISPRO 300 UNITS/3 ML VIAL SQ SCH (16:30)
[2018-02-09] MEDS ORDERED: *HR* Atropine Sulfate 1 MG/10 ML SYRINGE ONE (18:13)
[2018-02-09] MEDS: Ondansetron 4 MG/2 ML VIAL IVP PRN (19:54)
[2018-02-09] MEDS: Metoprolol XL (24 HR) Succ 25 MG TAB.ER.24H PO SCH (20:48)
[2018-02-09] MEDS ORDERED: Insulin DETEMIR 100 UNIT/ML X5UNITS SQ SCH (21:00)
[2018-02-10 05:38] LABS: Basophils % 0.4 %; Eosinophils % 0.2 %; Hematocrit 34.3 % (35.3-44.9); Immature Granulocytes % 0.9 % (0-4); Lymphocytes # 1.7 K/mcL (0.6-4.6); Lymphocytes % 14.9 %; Mean Corpuscular HGB Conc 33.8 g/dL (31.6-35.5); Mean Corpuscular Hemoglobin 28.6 pg (28.0-33.3); Mean Corpuscular Volume 84.7 fL (83.0-100.0); Monocytes % 9.1 %; Neutrophils # 8.2 K/mcL (1.6-8.9); Platelet Count 220 K/mcL (140-400); Red Blood Count 4.05 M/mcL (3.82-4.97); Red Cell Distribution Width 13.2 % (11.5-14.5); Segmented Neutrophils % 74.5 %
[2018-02-10 05:43] LABS: Hemoglobin 11.6 g/dL (11.5-15.4)
[2018-02-10 06:00] LABS: BUN/Creatinine Ratio 21 (6-26); Blood Urea Nitrogen 17 mg/dL (8-23); Calcium 8.2 mg/dL (8.6-10.3); Carbon Dioxide 24 mEq/L (23-29); Chloride 106 mEq/L (98-107); Chol/HDL Ratio 5.6 (0-4.9); Cholesterol 179 mg/dL (< 200); Glucose 347 mg/dL (70-105); HDL Cholesterol 32 mg/dL (40-59); LDL Cholesterol,Calculated 91 mg/dL (0-99); Osmolality,Calculated 299 (280-300); Potassium 4.5 mEq/L (3.5-5.1); Sodium 137 mEq/L (136-145); Triglycerides 281 mg/dL (< 150); eGFR For African Americans > 60 (> 60); eGFR For Non-African Americans > 60 (> 60)
[2018-02-10 06:02] LABS: Troponin I > 73.00 ng/mL (< 0.04)
[2018-02-10 06:10] LABS: Thyroid Stimulating Hormone 1.491 mcIU/mL (0.340-5.600)
[2018-02-10] MEDS: Ondansetron 4 MG/2 ML VIAL IVP PRN ×3 (06:39→22:18)
[2018-02-10] MEDS: Metoprolol XL (24 HR) Succ 25 MG TAB.ER.24H PO SCH ×2 (07:53→20:56)
[2018-02-10] MEDS: Insulin LISPRO 300 UNITS/3 ML VIAL SQ SCH ×4 (07:53→20:56)
[2018-02-10] MEDS: Aspirin 81 MG TAB.CHEW PO SCH (07:53)
[2018-02-10 07:58] LABS: Estimated Average Glucose 306 mg/dl; Hemoglobin A1C 12.3 %
--- NOTE | 2018-02-10 09:10 | Internal Med Progress Note ---
Date of Encounter: 02/10/18 Time of Encounter: 09:08 - Assessment and plan (1) ST elevation myocardial infarction (STEMI) Current Visit: Yes Status: Acute Assessment and plan: Management per primary. S/P percutaneous coronary intervention with drug- eluting stent to mid circumflex. Require staged PCI to LAD. On dual antiplatelet therapy. On statin. No longer having chest pain at this time. Qualifiers: Involved coronary artery: left circumflex coronary artery Qualified Code(s) : I21.21 - ST elevation (STEMI) myocardial infarction involving left circumflex coronary artery (2) DM type 2 (diabetes mellitus, type 2) Current Visit: Yes Status: Chronic Assessment and plan: Still hyperglycemic. A1C = 12.3%. Continue accuchecks and high dose SSI QID AC /HS. Increase levemir to 15 units BID. Diabetic diet when patient is able to eat. Qualifiers: Diabetes mellitus longwall foreman insulin use: without longwall foreman use Diabetes mellitus complication status: with hypoglycemia Diabetes mellitus complication detail: without coma Qualified Code(s): E11.649 - Type 2 diabetes mellitus with hypoglycemia without coma (3) Essential (primary) hypertension Current Visit: Yes Status: Chronic Assessment and plan: Improved. Patient has been placed on Zestril and Toprol per cardiology recommendations. (4) Cardiomyopathy Current Visit: Yes Status: Acute Assessment and plan: Patient has EF 45% per cardiac catheterization report. Follow cardiology recommendations. Qualifiers: Cardiomyopathy type: ischemic Qualified Code(s): I25.5 - Ischemic cardiomyopathy (5) Nausea Current Visit: Yes Status: Acute Assessment and plan: May be related to hyperglycemia. Treating Type II DM as per above. Continue zofran IV PRN nausea/vomiting. NPO for now. - Time Spent With Patient Total time spent is greater than 50% in coordination of care (as documented) at patient's floor/unit and/or counseling patient: less than 15 minutes - Subjective Interval history: Patient had no acute events overnight. She has some nausea this AM. Blood glucose still elevated. She denies fever, chills, chest pain, SOB, vomiting, or abdominal pain. She states that she does not have a PCP and was not taking any medications at home. She has no other complaints at this time. - Constitutional Vitals: Temp Pulse Resp BP Pulse Ox 97.8 F 88 17 105/67 98 02/10/18 07:31 02/10/18 08:00 02/10/18 08:00 02/10/18 08:00 02/10/18 08:00 General appearance: Present: cooperative, A&O X 3, morbidly obese, pleasant, no acute distress, answers questions appropriately - Respiratory Respiratory exam: Present: CTAB. Absent: accessory muscle use, rales, rhonchi, wheezes Additional comments: Normal WOB - Cardiovascular Cardiovascular exam: Present: RRR, +S1, +S2. Absent: diastolic murmur, gallop, rubs, systolic murmur Additional comments: No BLE edema - GI/Abdominal GI/Abdominal exam: Present: normal bowel sounds, soft. Absent: distended, hepatomegaly, mass, splenomegaly, tenderness - Psychiatric Psychiatric exam: Present: normal affect, normal mood. Absent: agitated, anxious, depressed - Skin Skin exam: Present: dry, warm. Absent: cyanosis, erythema, rash Internal Medicine: Result - Labs CBC & Chem 7: 02/10/18 05:01 02/10/18 05:01 Labs: Short CBC 02/10/18 Range/Units 05:01 WBC 11.0 (4.3-11.1) K/mcL Hgb 11.6 D (11.5-15.4) g/dL Hct 34.3 L (35.3-44.9) % Plt Count 220 (140-400) K/mcL Neutrophils # 8.2 (1.6-8.9) K/mcL BMP 02/10/18 05:01 Sodium 137 Potassium 4.5 Chloride 106 Carbon Dioxide 24 BUN 17 Creatinine 0.82 Glucose 347 H Calcium 8.2 L Cardiac Enzymes 02/10/18 Range/Units 05:01 Troponin I > 73.00 H* (< 0.04) ng/mL - ABG Interpretation ABG results: PT/INR, D-dimer PT 11.3 Seconds (9.4-12.1) 02/09/18 11:44 - VTE Reasons for not Prescribing Prophylaxis: Not indicated-Anticoagulated or INR therapeutic Consult Discharge Plan - Plan Referrals: NONE,PCP [Primary Care Provider] -
[2018-02-10] MEDS ORDERED: *HR* Heparin 5,000 UNIT/ML VIAL SQ SCH (09:30)
[2018-02-10] MEDS: Insulin DETEMIR 100 UNIT/ML X5UNITS SQ SCH ×2 (09:37→20:56)
--- NOTE | 2018-02-10 10:19 | Event Note ---
Date of Encounter: 02/10/18 Time of Encounter: 10:14 - Cardiology Event Note S/p STEMI with PCI to the LCX artery 02/09/18. Troponin is greater than 73. Planning for staged PCI to the LAD today with Dr. Kevin. She denies recurrent chest pain. C/o continued nausea. Will order zofran PRN. EKG ordered for this morning. [facility] R/B/A reviewed. She agrees Vital Signs Temp Pulse Pulse Resp BP Pulse Ox 02/10/18 09:00 73 18 122/64 95 02/10/18 08:00 73 17 105/67 98 02/10/18 07:31 97.8 F 02/10/18 07:00 87 21 116/65 98 02/10/18 06:00 86 18 121/75 99 02/10/18 05:00 75 17 110/67 99 02/10/18 04:00 98.1 F 73 17 104/59 98 02/10/18 03:39 72 02/10/18 03:00 70 15 108/57 99 02/10/18 02:00 72 12 98/56 100 02/10/18 01:00 71 21 108/65 99 02/10/18 00:15 99 F 02/10/18 00:00 73 17 99/56 98 02/09/18 23:00 73 17 103/54 100 02/09/18 22:00 79 17 110/73 99 02/09/18 21:00 82 17 113/65 99 02/09/18 20:54 82 16 113/65 98 02/09/18 20:26 78 17 115/62 98 02/09/18 20:14 81 16 109/64 96 02/09/18 20:00 81 16 109/64 96 02/09/18 19:45 78 16 123/73 96 02/09/18 19:40 98.6 F 76 16 93/54 96 02/09/18 19:35 81 16 93/59 96 02/09/18 19:34 81 16 102/52 96 02/09/18 19:30 81 16 103/52 96 02/09/18 19:20 80 16 114/73 95 02/09/18 19:00 98.6 F 82 16 97/55 97 02/09/18 18:23 81 16 107/70 98 02/09/18 18:00 80 18 111/81 98 02/09/18 17:45 80 18 115/67 98 02/09/18 17:30 80 18 116/63 98 02/09/18 17:15 77 18 111/61 98 02/09/18 17:00 77 18 103/66 98 02/09/18 16:45 77 18 104/64 98 02/09/18 16:30 98.6 F 80 18 107/64 97 02/09/18 16:15 80 18 108/61 97 02/09/18 16:00 80 18 115/60 97 02/09/18 15:45 80 80 18 121/73 97 02/09/18 15:30 80 86 18 140/87 98 02/09/18 15:15 86 86 18 129/78 98 02/09/18 15:00 86 86 18 120/81 98 02/09/18 14:45 86 86 18 131/74 99 02/09/18 14:30 86 86 18 129/72 99 02/09/18 14:21 97 02/09/18 14:15 98.2 F 85 85 18 111/68 98 02/09/18 12:16 98 02/09/18 12:13 87 22 160/101 99 02/09/18 11:57 97 18 157/99 97 02/09/18 11:28 98.4 F 91 20 156/93 96 Intake and Output 02/09/18 02/10/18 02/10/18 23:59 07:59 15:59 Output Total 850 / 850 Balance -850 / -850 Output: Urine 850 / 850 Other: Stool Size Small Stool Consistency formed # Voids 1 1 # Bowel Movements 1 Weight 106.2 kg Blood Glucose* 335 Patient Weight 02/10/18 23:59 Weight 106.2 kg Short CBC 02/10/18 02/09/18 Range/Units 05:01 11:44 WBC 11.0 7.8 (4.3-11.1) K/mcL Hgb 11.6 D 15.7 H (11.5-15.4) g/dL Hct 34.3 L 44.8 (35.3-44.9) % Plt Count 220 214 (140-400) K/mcL Neutrophils # 8.2 5.0 (1.6-8.9) K/mcL BMP 02/10/18 02/09/18 Range/Units 05:01 11:44 Sodium 137 134 L (136-145) mEq/L Potassium 4.5 4.5 (3.5-5.1) mEq/L Chloride 106 100 (98-107) mEq/L Carbon Dioxide 24 21 L (23-29) mEq/L BUN 17 20 (8-23) mg/dL Creatinine 0.82 0.89 (0.60-1.20) mg/dL Glucose 347 H 404 H (70-105) mg/dL Calcium 8.2 L 8.9 (8.6-10.3) mg/dL Cardiac Enzymes 02/10/18 02/09/18 Range/Units 05:01 11:44 Troponin I > 73.00 H* 0.72 H* (< 0.04) ng/mL with plan.
[2018-02-10] MEDS ORDERED: 0.9 % Sodium Chloride 1,000 ML ONE (15:21)
[2018-02-10] MEDS ORDERED: *HR* Midazolam HCl 2 MG/2 ML VIAL ONE ×2 (15:22→16:00)
[2018-02-10] MEDS ORDERED: *HR* FentaNYL (PF) 100 MCG/2 ML VIAL ONE (15:22)
--- NOTE | 2018-02-10 15:51 | Pre-Sedation Evaluation ---
Pre-sedation evaluation - Pre-sedation checklist Date of procedure: 02/10/18 Procedure: pci lad Recent Vitals: Last Vital Signs Temp 98.3 F 02/10/18 11:27 Pulse 75 02/10/18 12:00 Resp 11 02/10/18 12:00 BP 103/57 02/10/18 12:00 Pulse Ox 97 02/10/18 12:00 H&P (including ROS) documented in medical record: Yes Previous reaction to sedatives/anesthetics: No Dietary Status: NPO after Midnight Airway Assessment: Patient can open mouth completely, TMJ function normal ASA Classification *see protocol: CLASS II-Mild systemic disease Plan of Care: Pt appropriate candidate for procedure/moderate/conscious sedation , Risks/benefits of procedure/sedation discussed w/ patient/family Cardiac Registry (Cardio Only) - Functional Capacity Functional Capacity: < 4 METS - Clincal Frailty Scale Clinical Frailty Scale: Vulnerable
[2018-02-10] MEDS ORDERED: *HR* Adenosine 6 MG/2 ML VIAL IVP ONE (16:16)
--- NOTE | 2018-02-10 16:44 | Invasive Diagnostic Lab Proc ---
Name: Laquita Nichole Date of Study: 02/10/2018 Date: 1945 Ht: 61.8in Medical Record#: [id number] Age: 72 Wt: 233.69lb Gender: Female BSA: 2.04 Order #: [id number] BMI: 43 Physicians Procedure Physician: Dion Kevin MD, [facility] Referring MD: Referring MD: Staff Name Position Time In Yas Castellano RN Monitor 03:22 PM Gama Mitchell RN Dental Surgery Doctor 03:22 PM Jayden, Mela RT (R) Scrub 03:22 PM Indications Indication Non-Stemi Procedures Performed Procedure PRQ CARD STANLEY STENT W/ANGIO 1 VSL Pre-Procedure Checklist Informed consent is complete signed and on chart. H&P is on chart. ID band is on and ID verified with patient. Patient NPO for procedure The procedure was described for the patient and questions were answered. ECG is on chart. Plan of Care Patient will tolerate the procedure without complications. Adequate level of comfort will be maintained. Hemodynamics will remain stable Patient will recover from procedure without complications. Respiratory function will be maintained. Cardiac rhythm will remain stable. Patient temperature will be maintained. Patient and/or family have verbalized understanding of the procedure. Patient Education Chief Complaint/Reason for Test: Cardiac Cath Developmental Category: Geriatric (65+ years) Developmentally Appropriate for Age: Yes Learning Barriers: None Education Needs: Procedure Education Method: Verbal Information Taught: Cardiac Cath Educational Evaluation: Able to repeat information Intravenous Access Time IV Size Location DC'd Fluid/Drip Rate Units RN 20g 1 1/4" Patent On Arrival Lt Antecubital 0.9NaCl ml/hr 20g 1 1/4" Patent On Arrival Lt Arm Allergies NKDA Vital Signs Time BP (mmHg) HR (bpm) O2 Sat. RR (bpm) LOC 03:49 PM / % 4 = Oriented but drowsy 03:49 PM / % 4 = Oriented but drowsy 03:44 PM 125 / 64 80 97 % 03:49 PM 110 / 61 75 97 % 03:54 PM 107 / 62 72 96 % 03:59 PM 113 / 62 75 98 % 04:04 PM 101 / 58 73 96 % 04:09 PM 79 / 55 74 93 % 04:13 PM 107 / 59 74 96 % 04:14 PM 109 / 61 72 96 % 04:19 PM 113 / 69 72 96 % 04:24 PM 124 / 72 79 98 % Procedural Medications Time Medication Dose Units Method Given By 03:44 PM Oxygen 2 L/min nasal cannula Gama Mitchell RN 03:44 PM Versed 2 mg Intravenous Gama Mitchell RN 03:44 PM Fentanyl 50 mcg Intravenous Gama Mitchell RN 04:00 PM Lidocaine 2% 15 ml Subcutaneous Dion Kevin MD, FACC 04:01 PM Versed 1 mg Intravenous Gama Mitchell RN 04:04 PM Heparin 4000 units Intravenous Gama Mitchell RN 04:15 PM Nitroglycerin 200 mcg Intracoronary Dion Kevin MD 04:19 PM Adenosine 60 mcg Intracoronary Dion Kevin MD, FACC 04:22 PM Adenosine 400 mcg Intracoronary Dion Kevin MD, FACC 04:30 PM Plavix 300 mg Orally Gama Mitchell RN ASA Classification: CLASS II- Mild systemic disease (i.e. well-controlled diabetes, hypertension, asthma, cigarette smoking) Ben Score Preprocedure Postprocedure Activity 2- Moves 4 extremities sustained head lift Activity 2- Moves 4 extremities sustained head lift Circulation 2- SBP +/= 20 points of pre-anesthetic level Circulation 2- SBP +/= 20 points of pre-anesthetic level Consciousness 2- Awake and alert oriented x 3 Consciousness 2- Awake and alert oriented x 3 O2 Saturation 2- Able to maintain O2 satruation of 92% on room air O2 Saturation 2- Able to maintain O2 satruation of 92% on room air Respiratory 2- Able to deep breathe and cough well Respiratory 2- Able to deep breathe and cough well Total Score 10 Total Score 10 Contrast Agent: Isovue Diagnostic Contrast: 106 ml Total Contrast: 106 ml Fluoro Dose: 41 mGy Procedure Log Time Note Enter By 03:22 PM Pt arrived to aquatic laborer 1 at 15:22 [facility] 03:22 PM Yas Castellano RN Position: Monitor Time in: 15:22 [facility] 03:22 PM Gama Mitchell RN Position: Dental Surgery Doctor Time in: 15:22 [facility] 03:22 PM Mela Carpenter RT (R) Position: Scrub Time in: 15:22 [facility] 03:22 PM Patient charges- Angio tray pack, Navilyst 3mm J, Pulse Oximetry and ACIST tubing and transducer [facility] 03:44 PM Physician arrived 15:44 tsoummers 03:44 PM Meet and greet completed tsmmers 03:44 PM Sign in performed according to hospital policy. tsmmers 03:44 PM Procedure start 15:44 tsoummers 03:44 PM Time: 15:44 Oxygen on at 2 L/min per nasal cannula by Gama Mitchell RN [email or web address] 03:44 PM Time: 15:44 Versed 2 mg Intravenous Given by Gama Mitchell RN 03:44 PM Vitals capture started with the following parameters, Patient=Adult, Interval=5 min, Initial Qnyvseob=564 mmHg, Deflation Rate=3 mmHg, Cuff placed on Right Arm 03:44 PM Time: 15:44 Fentanyl 50 mcg Intravenous Given by Gama Mitchell RN tamiko 03:44 PM HR=80 bpm, AVCW=305/64 mmhg, SpO2=97.0 % 03:44 PM CathStat 03:45 PM Recorded ECG: HR=79 Condition=Condition 1 03:45 PM Clinical Presentation: Non-STEMI tsoummers 03:45 PM Hair removed from procedure site in procedure lab using clippers. Bilateral groin prepped with Chloraprep by Mela Carpenter (R), then patient was draped. Skin intact. tsoummers 03:49 PM no family present. ICU nurse states she will contact pt's family following procedure. tsoummers 03:49 PM HR=75 bpm, FGSJ=944/61 mmhg, SpO2=97.0 %, Comment=nsr 03:49 PM Time: 15:49 Patient comfortable and pain free: Yes tsoummers 03:49 PM Time: 15:49LOC: 4 = Oriented but drowsy tsoummers 03:54 PM HR=72 bpm, BMRH=226/62 mmhg, SpO2=96.0 %, Comment=nsr 03:57 PM ASA Class CLASS II- Mild systemic disease (i.e. well-controlled diabetes, hypertension, asthma, cigarette smoking) tsoummers 03:57 PM Pressure channel 1 zeroed. 03:58 PM Time out performed according to hospital policy tsoummers 03:59 PM HR=75 bpm, PGGA=444/62 mmhg, SpO2=98.0 %, Comment=nsr 04:00 PM Time: 16:00 15 ml Lidocaine 2% to left groin Subcutaneous Given by Dion Kevin MD, FACC tsoummers 04:01 PM Time: 16:01 Versed 1 mg Intravenous Given by Gama Mitchell RN 04:02 PM Access obtained by percutaneous puncture. 6Fr 10cm Terumo [place] sheath placed in left Femoral artery. [id number] tsoummers 04:02 PM 0.035 145cm Navilyst 3mmJ wire [id number] tsoummers 04:02 PM Inflation device was opened. tsoummers 04:02 PM 6Fr CLS 3.5 Runway guide catheter was used to cannulate the PCI vessel successfully. reused? No tsoummers 04:02 PM wire removed [email or web address] 04:03 PM Recorded Pressure: Ao, HR=74, Condition=Condition 1 (Aorta) Ao 90/51/67 04:03 PM LCA angiography performed in multiple views. tsoummers 04:04 PM Time: 16:04 Heparin 4000 units Intravenous Given by Gama Mitchell RN [email or web address] 04:04 PM HR=73 bpm, IKOO=027/58 mmhg, SpO2=96.0 %, Comment=nsr 04:05 PM Time: 15:49LOC: 4 = Oriented but drowsy tsoummers 04:05 PM Time: 15:49 Patient comfortable and pain free: Yes tsoummers 04:05 PM Coronary Dominance: right known per previous procedure tsoummers 04:06 PM .014 [place]row[place] 180cm guide wire across target lesion- successful. reused? No tsoummers 04:06 PM 2.0 mm x 20 mm Emerge Monorail balloon across target lesion- successful. reused? No tsoummers 04:08 PM NIBP STAT measurement started. 04:09 PM HR=74 bpm, NIBP=79/55 mmhg, SpO2=93.0 %, Comment=nsr 04:10 PM Lesion found in Mid LAD. Pre Stenosis: 99 Pre BING Flow: 2: Partial Flow/Perfusion (> 1 but < 3) tsoummers 04:11 PM Balloon inflated @ 14 geri for 15 seconds tsoummers 04:11 PM Balloon inflated @ 14 geri for 10 seconds tsoummers 04:12 PM NIBP STAT measurement started. 04:12 PM Balloon catheter removed intact. tsoummers 04:13 PM HR=74 bpm, REDS=083/59 mmhg, SpO2=96.0 %, Comment=nsr 04:14 PM 2.5mm x 32mm Synergy drug-eluting stent across target lesion- successful Lot #[id number] [facility] 04:14 PM HR=72 bpm, YLSC=650/61 mmhg, SpO2=96.0 %, Comment=nsr 04:15 PM Stent deployed @ 18 geri for 23 seconds tsmm 04:16 PM Time: 16:15 Nitroglycerin 200 mcg Intracoronary Given by [facility] 04:16 PM Recorded Pressure: Ao, HR=78, Condition=Condition 1 (Aorta) Ao 73/51/62 04:18 PM Stent delivery system removed intact. tsmm 04:19 PM HR=72 bpm, MEKI=392/69 mmhg, SpO2=96.0 %, Comment=nsr 04:19 PM Time: 16:19 Adenosine 400 mcg administered Intracoronary by Dion Kevin MD, [facility] 04:21 PM Recorded Pressure: Ao, HR=71, Condition=Condition 1 (Aorta) Ao 92/58/73 04:22 PM Time: 16:22 Adenosine 400 mcg administered Intracoronary by Dion Kevin MD, [facility] tsmm 04:22 PM Guide wire removed intact. mm 04:22 PM Guide catheter removed intact. [facility] 04:23 PM Bolus angiogram of left Femoral complete: 2 ml/sec for a total of 4 mls [facility] 04:23 PM Procedure completed at 16:23 02/10/2018 [facility] 04:24 PM Did you address BING flow and Dominance? Yes [facility] 04:24 PM Sign out completed: Radiation Dose 676.79 mGy, 41.9251 Fluoro Time: Isovue 370 - 200ml contrast 106 ml given by Dion Kevin MD, [facility]. Complications: NoneCardiac Rehab Consult needed: Confirmed administered medications: [facility] 04:[facility] PM HR=79 bpm, IKOO=985/72 mmhg, SpO2=98.0 %, Comment=nsr 04:24 PM Isovue 370 - 200ml,1 Bottle(s) [facility]. [facility] 04:25 PM Arterial sheath pulled, Mynx closure device used and was Successful [id number] S[facility]N. [facility] 04:25 PM Estimated Blood Loss: less than 20cc [facility] 04:25 PM Post ECG NSR mm 04:25 PM Post Blood Pressure 124/72 [facility] 04:25 PM Information taught Cardiac Cath, PCI, and Mynx [facility] 04:25 PM Education needs Procedure, Plan of Care, and Responsibilities of Patient in Care [facility] 04:25 PM Learning barriers :None [facility] 04:25 PM Education Methods Verbal [facility] 04:25 PM Education evaluation Able to repeat information [facility] 04:25 PM Site status No bleeding/hematoma - Lt Groin as reported by Sites, Mela RT (R) at 16:25 [facility] 04:25 PM Opsite applied [facility] 04:25 PM Delay to floor No [facility] 04:25 PM Complications: None [facility] 04:26 PM Fluoro Time: 6.3 [facility] 04[facility]26 PM Isovue 370 - 200ml contrast [address] Kevin. [facility] 04:29 PM Report given to Keisha MARTINEZ Pt taken to ICU Room #1. 16:28 [facility] 04[facility]30 PM Patient out of room: 16:30 [facility] 04:30 PM Time: 16:30 Plavix 300 mg Orally Given by Gama Mitchell RN [facility] 04:31 PM Keisha informed pt is to be flat x 2 hours, then HOB can be elevated 30 degrees x 2 additional hours, then pt can be ambulated per Dr. Kevin verbal order. dwight Complications Complication None Hemodynamics Pressures Site Systolic/A Wave Diastolic/V Wave Mean AO 90 51 67 AO 73 51 62 AO 92 58 73 Post Procedure Information Blood Pressure: 124/72 mmHg Rhythm: NSR Post procedural instructions were given Closure Device Time Device Success/Fail 02/10/2018 4:25:00 PM MynxGrip Successful Site Checks Time Location Status Staff Sheath In? Note 04:25 PM Lt Groin No bleeding/hematoma Sites, Mela RT (R) Pulses Time Site Pre-Procedure Post-Procedure Note Bilateral radial 2+ Bilateral DP 2+ Bilateral PT 1+ Updated by Yas Castellano RN on 02/10/2018 4:35:25 PM electronically signed on 02/10/2018 4:35:52 PM with status of Final
[2018-02-10] MEDS: *HR* Heparin 5,000 UNIT/ML VIAL SQ SCH (16:58)
--- NOTE | 2018-02-10 18:20 | Electrocardiograph Report ---
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
[2018-02-11 04:55] LABS: Basophils % 0.3 %; Eosinophils # 0.1 K/mcL (0.0-0.6); Eosinophils % 0.6 %; Hematocrit 32.5 % (35.3-44.9); Hemoglobin 10.9 g/dL (11.5-15.4); Immature Granulocytes % 0.8 % (0-4); Lymphocytes # 1.5 K/mcL (0.6-4.6); Lymphocytes % 16.4 %; Mean Corpuscular HGB Conc 33.5 g/dL (31.6-35.5); Mean Corpuscular Hemoglobin 29.4 pg (28.0-33.3); Mean Corpuscular Volume 87.6 fL (83.0-100.0); Mean Platelet Volume 10.9 fL (9.4-12.4); Monocytes % 11.2 %; Neutrophils # 6.6 K/mcL (1.6-8.9); Platelet Count 183 K/mcL (140-400); Red Blood Count 3.71 M/mcL (3.82-4.97); Red Cell Distribution Width 13.3 % (11.5-14.5); Segmented Neutrophils % 70.7 %
[2018-02-11 05:10] LABS: BUN/Creatinine Ratio 24 (6-26); Blood Urea Nitrogen 24 mg/dL (8-23); Calcium 8.3 mg/dL (8.6-10.3); Carbon Dioxide 19 mEq/L (23-29); Chloride 109 mEq/L (98-107); Glucose 218 mg/dL (70-105); Osmolality,Calculated 295 (280-300); Potassium 4.2 mEq/L (3.5-5.1); Sodium 137 mEq/L (136-145); eGFR For African Americans > 60 (> 60); eGFR For Non-African Americans 54 (> 60)
[2018-02-11] MEDS: *HR* Heparin 5,000 UNIT/ML VIAL SQ SCH ×2 (05:41→17:14)
--- NOTE | 2018-02-11 06:12 | Electrocardiograph Report ---
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
[2018-02-11] MEDS: Metoprolol XL (24 HR) Succ 25 MG TAB.ER.24H PO SCH ×2 (08:02→20:15)
[2018-02-11] MEDS: Ondansetron 4 MG/2 ML VIAL IVP PRN (08:02)
[2018-02-11] MEDS: Insulin DETEMIR 100 UNIT/ML X5UNITS SQ SCH ×2 (08:02→20:15)
[2018-02-11] MEDS: Aspirin 81 MG TAB.CHEW PO SCH (08:02)
[2018-02-11] MEDS: Insulin LISPRO 300 UNITS/3 ML VIAL SQ SCH ×3 (08:03→17:14)
[2018-02-11 12:19] LABS: Hematocrit 33.5 % (35.3-44.9); Hemoglobin 11.3 g/dL (11.5-15.4)
--- NOTE | 2018-02-11 13:13 | Cardiology Progress Note ---
Date of Encounter: 02/11/18 Time of Encounter: 13:18 Assessment and Plan (1) ST elevation myocardial infarction (STEMI) Current Visit: Yes Status: Acute Cardiology: Presents with STEMI. S/p PCI to the LCx artery critical stenosis with thrombus (culprit lesion). [facility] reviewed, 40% stenosis in the Proximal LAD. 99% stenosis in the Mid LAD. 95 % stenosis in the Distal LAD. 99% stenosis in the Mid Circumflex. S/p PTCA and STANLEY. 30% stenosis in the Proximal RCA. 25% stenosis in the Mid RCA. 25% stenosis in the Distal RCA. Asa, statin, and bb. Underwent staged PCI to the LAD with PTCA and STANLEY. TTE completed showed EF 45%. WMA in the inferolateral and basal inferolateral gunter. C/o right femoral access tenderness since procedure, difficult stick due to multiple skin folds. Ecchymosis noted into the perineal area. No hematoma palpable in bilateral groin. Noted that hgb dropped from 15 [address] Nye. Hgb re-checked and found to be 11.3. No active signs of bleeding. Continue to monitor. Importance of DAPT with asa and plavix uninterrupted for min one year reviewed and she voiced understanding. Continue statin and bb. D/c planning: PT/OT consult. Recommend patient goes to rehab due to deconditioning. She also reports no electricity at home. general scrap worker consulted. Patient would like to go to [facility]. Step down to telemetry floor today. Qualifiers: Involved coronary artery: left circumflex coronary artery Qualified Code(s) : I21.21 - ST elevation (STEMI) myocardial infarction involving left circumflex coronary artery (2) DM type 2 (diabetes mellitus, type 2) Current Visit: Yes Status: Chronic The assessment and plan as outlined above was discussed with the patient and/or family members who expressed understanding and agreement. All questions were answered. Patient without diabetic medications for long period of time. Hospitalist consulted , appreciate recommendations. No on levimer 20 mg BID and SSI. Can be continued at [facility]. 1800 ADA diabetic diet. Qualifiers: Diabetes mellitus nursing home insulin use: without program counselor use Diabetes mellitus complication status: with hypoglycemia Diabetes mellitus complication detail: without coma Qualified Code(s): E11.649 - Type 2 diabetes mellitus with hypoglycemia without coma (3) Cardiomyopathy Current Visit: Yes Status: Acute Iachemic cardiomyopathy. EF 45%. Currently euvolemic on exam. No lasix needed at this time. Low sodium diet stressed. Daily weights. Continue toprol XL and lisinopril. Qualifiers: Cardiomyopathy type: ischemic Qualified Code(s): I25.5 - Ischemic cardiomyopathy Discussion w patient/family: The assessment and plan as outlined above was discussed with the patient and/or family members who expressed understanding and agreement. All questions were answered. Thank you for involving us in the care of your patient. Please call with any questions. Subjective Principal diagnosis: STEMI Interval history: Ms. Nichole reports she is feeling better. Denies recurrent chest or upper back pain. C/o tenderness in her left groin. Objective Vital Signs, Last 4 Hours Temp Pulse Resp BP Pulse Ox 02/11/18 12:33 97.4 F L 02/11/18 11:00 74 10 104/64 99 02/11/18 10:00 76 12 119/65 96 General: Conversant, No Apparent Distress HEENT: Atraumatic, Normocephaly, Mucus Membranes Moist Neck: No JVD, Normal carotid pulses Cardiac: Reg Rate and Rhythm, Normal S1 and S2, No Murmur Lungs: Normal Breath Sounds, No Wheeze, Rales, Rhonchi Neuro: Alert and responsive, No focal deficits noted Abdomen: Soft, Non-Tender Skin: No rashes noted on visualized skin Musculoskeletal: No Chest Wall Tenderness Extremities: No Clubbing, No Cyanosis, No Edema, Normal Pulses, Other (Right groin with ecchymosis into the perineal area. No ecchymosis seen on left. Tenderness to palpation. ) Results 02/11/18 11:53 02/11/18 04:31 Lab Results 02/11/18 02/11/18 02/11/18 04:31 04:31 11:53 WBC 9.3 Hgb 10.9 L 11.3 L Hct 32.5 L 33.5 L Plt Count 183 Sodium 137 Potassium 4.2 Chloride 109 H Carbon Dioxide 19 L BUN 24 H Creatinine 1.01 Glucose 218 H Calcium 8.3 L - Imaging and Cardiology Echo: report reviewed Cardiac cath: report reviewed - EKG Interpretation EKG results cardiology: personally reviewed - VTE Reasons for not Prescribing Prophylaxis: Not indicated-Anticoagulated or INR therapeutic Documentation of Mechanical Device: Intermittent pneumatic compression device Consult Discharge Plan - Plan Referrals: NONE,PCP [Primary Care Provider] -
[2018-02-11 14:25] LABS: Basophils % 0.4 %; Eosinophils # 0.1 K/mcL (0.0-0.6); Eosinophils % 0.8 %; Hematocrit 31.7 % (35.3-44.9); Hemoglobin 10.5 g/dL (11.5-15.4); Immature Granulocytes % 0.8 % (0-4); Lymphocytes % 19.4 %; Mean Corpuscular HGB Conc 33.1 g/dL (31.6-35.5); Mean Corpuscular Hemoglobin 28.5 pg (28.0-33.3); Mean Corpuscular Volume 85.9 fL (83.0-100.0); Mean Platelet Volume 10.9 fL (9.4-12.4); Monocytes # 1.2 K/mcL (0.0-1.3); Monocytes % 11.4 %; Platelet Count 195 K/mcL (140-400); Red Blood Count 3.69 M/mcL (3.82-4.97); Red Cell Distribution Width 13.5 % (11.5-14.5); Segmented Neutrophils % 67.2 %
[2018-02-11 14:44] LABS: BUN/Creatinine Ratio 26 (6-26); Blood Urea Nitrogen 26 mg/dL (8-23); Calcium 8.5 mg/dL (8.6-10.3); Carbon Dioxide 25 mEq/L (23-29); Chloride 106 mEq/L (98-107); Glucose 172 mg/dL (70-105); Osmolality,Calculated 291 (280-300); Potassium 3.7 mEq/L (3.5-5.1); Sodium 136 mEq/L (136-145); eGFR For African Americans > 60 (> 60); eGFR For Non-African Americans 54 (> 60)
--- NOTE | 2018-02-11 15:06 | Internal Med Progress Note ---
<Caio Bland - Last Filed: 02/11/18 15:03> Date of Encounter: 02/11/18 Time of Encounter: 15:03 - Assessment and plan (1) ST elevation myocardial infarction (STEMI) Current Visit: Yes Status: Acute Assessment and plan: Patient presented with STEMI. He is status post PCI to mid circumflex artery and proximal LAD. Currently she denies any chest pain. Continue aspirin, statin, beta altagracia. Plan as per cardiology is to discharge patient to rehabilitation for 2 weeks. Qualifiers: Involved coronary artery: left circumflex coronary artery Qualified Code(s) : I21.21 - ST elevation (STEMI) myocardial infarction involving left circumflex coronary artery (2) DM type 2 (diabetes mellitus, type 2) Current Visit: Yes Status: Chronic Assessment and plan: Patient's: A1c is 12.3. Patient was on Levemir 15 into twice a day however she was still hyperglycemic. We have increased this to 20 units twice a day. Continue diabetic diet. Qualifiers: Diabetes mellitus detention insulin use: without termite exterminator use Diabetes mellitus complication status: with hypoglycemia Diabetes mellitus complication detail: without coma Qualified Code(s): E11.649 - Type 2 diabetes mellitus with hypoglycemia without coma (3) Essential (primary) hypertension Current Visit: Yes Status: Chronic Assessment and plan: Continue lisinopril, metoprolol. (4) Cardiomyopathy Current Visit: Yes Status: Acute Assessment and plan: Patient has ischemic cardiomyopathy with EF of 45%. No lower extremity edema. Continue metoprolol and lisinopril. Qualifiers: Cardiomyopathy type: ischemic Qualified Code(s): I25.5 - Ischemic cardiomyopathy (5) Nausea Current Visit: Yes Status: Acute Assessment and plan: Patient continues to have some nausea. We will continue Zofran as of now. She did tolerate her breakfast and ate 100%. - Time Spent With Patient Total time spent is greater than 50% in coordination of care (as documented) at patient's floor/unit and/or counseling patient: - Subjective Interval history: Patient sitting in chair, pleasant. She reports no acute overnight events. She denies any chest pain, palpitations. She does not report shortness of breath. Reports cough and sputum production however this is at baseline for her due to history of COPD. She does report some nausea this morning with her meal. - Constitutional Vitals: Temp Pulse Resp BP Pulse Ox 97.4 F L 74 10 104/64 99 02/11/18 12:33 02/11/18 11:00 02/11/18 11:00 02/11/18 11:00 02/11/18 11:00 General appearance: Present: cooperative, A&O X 3, morbidly obese, pleasant, no acute distress, answers questions appropriately - Other Additional findings: General: without distress Heart: Regular rate and rhythm with no murmur Lungs: Clear to auscultation bilaterally Abdomen: Soft nontender, nondistended positive bowel sounds Skin: warm and dry, absent rash Extremities: Minimal bilateral pedal edema Neuro: Alert oriented 3 Vascular: Pedal and radial pulses 2 out of 4 Internal Medicine: Result - Labs CBC & Chem 7: 02/11/18 14:03 02/11/18 14:03 Labs: Short CBC 02/11/18 02/11/18 02/11/18 Range/Units 04:31 11:53 14:03 WBC 9.3 10.4 (4.3-11.1) K/mcL Hgb 10.9 L 11.3 L 10.5 L (11.5-15.4) g/dL Hct 32.5 L 33.5 L 31.7 L (35.3-44.9) % Plt Count 183 195 (140-400) K/mcL Neutrophils # 6.6 7.0 (1.6-8.9) K/mcL BMP 02/11/18 02/11/18 04:31 14:03 Sodium 137 136 Potassium 4.2 3.7 Chloride 109 H 106 Carbon Dioxide 19 L 25 BUN 24 H 26 H Creatinine 1.01 1.01 Glucose 218 H 172 H Calcium 8.3 L 8.5 L - ABG Interpretation ABG results: PT/INR, D-dimer PT 11.3 Seconds (9.4-12.1) 02/09/18 11:44 - VTE Reasons for not Prescribing Prophylaxis: Not indicated-Anticoagulated or INR therapeutic Documentation of Mechanical Device: Intermittent pneumatic compression device Consult Discharge Plan - Plan Referrals: NONE,PCP [Primary Care Provider] - <Tanya Bermudez - Last Filed: 02/11/18 23:23> Date of Encounter: 02/11/18 - Assessment and plan (1) ST elevation myocardial infarction (STEMI) Current Visit: Yes Status: Acute Qualifiers: Involved coronary artery: left circumflex coronary artery Qualified Code(s) : I21.21 - ST elevation (STEMI) myocardial infarction involving left circumflex coronary artery (2) DM type 2 (diabetes mellitus, type 2) Current Visit: Yes Status: Chronic Qualifiers: Diabetes mellitus detention insulin use: without detention use Diabetes mellitus complication status: with hypoglycemia Diabetes mellitus complication detail: without coma Qualified Code(s): E11.649 - Type 2 diabetes mellitus with hypoglycemia without coma (3) Essential (primary) hypertension Current Visit: Yes Status: Chronic (4) Cardiomyopathy Current Visit: Yes Status: Acute Qualifiers: Cardiomyopathy type: ischemic Qualified Code(s): I25.5 - Ischemic cardiomyopathy (5) Nausea Current Visit: Yes Status: Acute - Time Spent With Patient Total time spent is greater than 50% in coordination of care (as documented) at patient's floor/unit and/or counseling patient: - Constitutional Vitals: Temp Pulse Resp BP Pulse Ox 98.7 F 73 14 105/64 97 02/11/18 19:52 02/11/18 20:00 02/11/18 20:00 02/11/18 20:00 02/11/18 20:00 Internal Medicine: Result - Labs CBC & Chem 7: 02/11/18 14:03 02/11/18 14:03 Labs: Short CBC 02/11/18 02/11/18 02/11/18 Range/Units 04:31 11:53 14:03 WBC 9.3 10.4 (4.3-11.1) K/mcL Hgb 10.9 L 11.3 L 10.5 L (11.5-15.4) g/dL Hct 32.5 L 33.5 L 31.7 L (35.3-44.9) % Plt Count 183 195 (140-400) K/mcL Neutrophils # 6.6 7.0 (1.6-8.9) K/mcL BMP 02/11/18 02/11/18 04:31 14:03 Sodium 137 136 Potassium 4.2 3.7 Chloride 109 H 106 Carbon Dioxide 19 L 25 BUN 24 H 26 H Creatinine 1.01 1.01 Glucose 218 H 172 H Calcium 8.3 L 8.5 L - ABG Interpretation ABG results: PT/INR, D-dimer PT 11.3 Seconds (9.4-12.1) 02/09/18 11:44 - Attending Attestation I examined this patient and my medical decision-making was reviewed with the Resident Physician. I agree with the documented findings, disposition and treatment plan as described except to the extent set forth below.
[2018-02-11] MEDS ORDERED: Nitroglycerin 0.4 MG TAB.SUBL SL PRN (19:29)
[2018-02-11] MEDS ORDERED: Ondansetron 4 MG/2 ML VIAL IVP PRN (19:29)
[2018-02-11] MEDS ORDERED: Dextrose Gel 15 GM/37.5 ML TUBE PO PRN ×2 (19:29)
[2018-02-11] MEDS ORDERED: *HR* Dextrose 50 % in Water (Syg) 50 ML SYRINGE IVP PRN (19:29)
[2018-02-11] MEDS ORDERED: D5% in Water 1,000 ML IVC PRN (19:29)
--- NOTE | 2018-02-11 19:40 | Electrocardiograph Report ---
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
--- NOTE | 2018-02-11 19:45 | Electrocardiograph Report ---
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
[2018-02-11] MEDS ORDERED: Insulin LISPRO 300 UNITS/3 ML VIAL SQ SCH (21:00)
[2018-02-11] MEDS ORDERED: Insulin DETEMIR 100 UNIT/ML X5UNITS SQ SCH (21:00)
[2018-02-12] MEDS ORDERED: *HR* Heparin 5,000 UNIT/ML VIAL SQ SCH (06:00)
[2018-02-12] MEDS: Insulin DETEMIR 100 UNIT/ML X5UNITS SQ SCH (08:26)
[2018-02-12] MEDS: Metoprolol XL (24 HR) Succ 25 MG TAB.ER.24H PO SCH (08:26)
[2018-02-12] MEDS: Insulin LISPRO 300 UNITS/3 ML VIAL SQ SCH ×2 (08:27→12:42)
[2018-02-12 08:56] VITALS: BP 100/65
[2018-02-12] MEDS ORDERED: Aspirin 81 MG TAB.CHEW PO SCH (09:00)
--- NOTE | 2018-02-12 10:08 | Internal Med Progress Note ---
<Caio Bland - Last Filed: 02/12/18 10:06> Date of Encounter: 02/12/18 Time of Encounter: 10:06 - Assessment and plan (1) DM type 2 (diabetes mellitus, type 2) Status: Chronic Assessment and plan: Patient's: A1c is 12.3. Patient's [id number] glucose is at goal between 150 and 180. We will continue her 20 units twice a day Levemir at discharge. Continue diabetic cardiac diet. Qualifiers: Diabetes mellitus [facility] insulin use: without remote computer terminal operator use Diabetes mellitus complication status: with hypoglycemia Diabetes mellitus complication detail: without coma Qualified Code(s): E11.649 - Type 2 diabetes mellitus with hypoglycemia without coma (2) ST elevation myocardial infarction (STEMI) Status: Acute Assessment and plan: Patient presented with STEMI. He is status post PCI to mid circumflex artery and proximal LAD. Currently she denies any chest pain. Continue aspirin, statin, beta altagracia. Plan as per cardiology is to discharge patient to rehabilitation for 2 weeks. Qualifiers: Involved coronary artery: left circumflex coronary artery Qualified Code(s) : I21.21 - ST elevation (STEMI) myocardial infarction involving left circumflex coronary artery (3) Essential (primary) hypertension Status: Chronic Assessment and plan: Controlled Continue lisinopril, metoprolol. (4) Cardiomyopathy Status: Acute Assessment and plan: Patient has ischemic cardiomyopathy with EF of 45%. No lower extremity edema. Continue metoprolol and lisinopril. Qualifiers: Cardiomyopathy type: ischemic Qualified Code(s): I25.5 - Ischemic cardiomyopathy (5) Nausea Status: Resolved Assessment and plan: Resolved - Time Spent With Patient Total time spent is greater than 50% in coordination of care (as documented) at patient's floor/unit and/or counseling patient: - Subjective Interval history: No acute events overnight. Patient denies chest pain, shortness of breath, abdominal pain, nausea, vomiting, diarrhea. - Constitutional Vitals: Temp Pulse Resp BP Pulse Ox 98.3 F 71 16 100/65 100 02/12/18 08:00 02/12/18 08:00 02/12/18 08:00 02/12/18 08:00 02/12/18 08:00 General appearance: Present: cooperative, A&O X 3, morbidly obese, pleasant, no acute distress, answers questions appropriately - Other Additional findings: General: without distress Heart: Regular rate and rhythm with no murmur Lungs: Clear to auscultation bilaterally Abdomen: Soft nontender, nondistended positive bowel sounds Skin: warm and dry, absent rash Extremities: Absent pedal edema Neuro: Alert oriented 3 Vascular: Pedal and radial pulses 2 out of 4 Internal Medicine: Result - Labs CBC & Chem 7: 02/11/18 14:03 02/11/18 14:03 Labs: Short CBC 02/11/18 02/11/18 Range/Units 11:53 14:03 WBC 10.4 (4.3-11.1) K/mcL Hgb 11.3 L 10.5 L (11.5-15.4) g/dL Hct 33.5 L 31.7 L (35.3-44.9) % Plt Count 195 (140-400) K/mcL Neutrophils # 7.0 (1.6-8.9) K/mcL BMP 02/11/18 14:03 Sodium 136 Potassium 3.7 Chloride 106 Carbon Dioxide 25 BUN 26 H Creatinine 1.01 Glucose 172 H Calcium 8.5 L - ABG Interpretation ABG results: PT/INR, D-dimer PT 11.3 Seconds (9.4-12.1) 02/09/18 11:44 - VTE Reasons for not Prescribing Prophylaxis: Not indicated-Anticoagulated or INR therapeutic Documentation of Mechanical Device: Intermittent pneumatic compression device Consult Discharge Plan - Plan Instructions: Myocardial Infarction (DC), Pacemaker (DC), Diabetes Mellitus Type 2 in Adults (DC), Chronic Hypertension (DC) Additional Instructions: RISK FACTORS: STOP SMOKING: If you smoke, STOP. Smoking or tobacco use significantly increases your risk of heart disease because nicotine causes the arteries to narrow or constrict. It also causes fats to stick to the artery. Your chances of having a heart attack are greatly increased if you continue to smoke. For more information, call the education line for smoking cessation 7-276-XGXGVJR EAT A LOW FAT/CHOLESTEROL/SODIUM DIET: This diet may help reduce your chances of having a heart attack. LIFTING: Avoid lifting anything more than 10 pounds for 5-7 days Prior to straining, laughing, sneezing and/or coughing, apply manual pressure directly over insertion site. ACTIVITY: You may walk or climb stairs as tolerated You can resume sexual activity as tolerated In general, you are encouraged to engage in a minimum of 30 minutes or more of moderate intensity physical activity, such as brisk walking, daily or at least 3 -4 times weekly BATHING Do not submerge the site into water (bath tub, hot tub, swimming pool) for 1 week. This can be a source for infection into the blood stream. You may shower after 24 hours SITE CARE: After 24 hours, you may remove the dressing and leave the site open to air. Keep the site clean and dry. Clean gently and pat dry. You can expect bruising and tenderness that gradually resolve within a week or two. Return to work as instructed per your physician Resume driving as instructed per physician Keep all scheduled follow up appointments Resume medications as instructed IMPORTANT: If prescribed a Platelet Aggregation Inhibitor such as, Plavix, Brilinta or Effient: Duration of therapy is minimum one year These medications are often used in combination with Aspirin in prevention of future heart attacks Never discontinue unless consult with your Tariff Counsel STROKE (CVA) Risk factors for a stroke are: Age, cigarette smoking, diabetes, excessive alcohol consumption, family history, high blood pressure, overweight, physical inactivity, prior stroke, heart attack, diagnosis of carotid artery stenosis or other artery disease. Warning signs: Sudden numbness or weakness of the face, arm or leg; especially on one side of the body, sudden confusion, trouble speaking or understanding, sudden trouble seeing in one or both eyes, sudden trouble walking, dizziness, loss of balance or coordination, sudden severe headache with no cause. Call 911 or go to the Emergency Room. CONGESTIVE HEART FAILURE: If you have been diagnosed with Congestive Heart Failure (CHF) and your symptoms return, make an appointment with your physician Weigh yourself daily. Notify your physician if you have a weight gain of two or more pounds in one day or five or more pounds in one week. If you experience any difficulty breathing, please call 911 BLEEDING: Although the risk of bleeding is minimal, it can happen. If you have any bleeding from the site, apply firm pressure above the puncture site for 10-15 minutes. If the bleeding does not stop, continue manual pressure and call 911 Contact your physician if: You develop a fever greater than 101 degrees Fahrenheit Your site becomes reddened or has any drainage You have an increase in pain or burning at the site or if a large knot forms at the site. If you experience chest pain, shortness of breath, dizziness, or extreme tiredness, stop the activity and rest. Please notify your physicians office if you experience any of these symptoms and they are not relieved by rest please call 911! Referrals: NONE,PCP [Primary Care Provider] - <Tanya Bermudez - Last Filed: 02/12/18 19:05> Date of Encounter: 02/12/18 - Assessment and plan (1) ST elevation myocardial infarction (STEMI) Status: Acute Qualifiers: Involved coronary artery: left circumflex coronary artery Qualified Code(s) : I21.21 - ST elevation (STEMI) myocardial infarction involving left circumflex coronary artery (2) DM type 2 (diabetes mellitus, type 2) Status: Chronic Qualifiers: Diabetes mellitus remote computer terminal operator insulin use: without [facility] use Diabetes mellitus complication status: with hypoglycemia Diabetes mellitus complication detail: without coma Qualified Code(s): E11.649 - Type 2 diabetes mellitus with hypoglycemia without coma (3) Essential (primary) hypertension Status: Chronic (4) Cardiomyopathy Status: Resolved Qualifiers: Cardiomyopathy type: ischemic Qualified Code(s): I25.5 - Ischemic cardiomyopathy (5) Nausea Status: Resolved - Time Spent With Patient Total time spent is greater than 50% in coordination of care (as documented) at patient's floor/unit and/or counseling patient: - Constitutional Vitals: Temp Pulse Resp BP Pulse Ox 98.3 F 71 16 100/65 100 02/12/18 12:00 02/12/18 08:00 02/12/18 08:00 02/12/18 08:00 02/12/18 08:00 Internal Medicine: Result - Labs CBC & Chem 7: 02/12/18 10:19 02/12/18 10:19 Labs: Short CBC 02/12/18 Range/Units 10:19 WBC 12.3 H (4.3-11.1) K/mcL Hgb 11.9 (11.5-15.4) g/dL Hct 35.9 (35.3-44.9) % Plt Count 258 (140-400) K/mcL BMP 02/12/18 10:19 Sodium 135 L Potassium 3.5 Chloride 103 Carbon Dioxide 22 L BUN 25 H Creatinine 0.93 Glucose 163 H Calcium 8.8 - ABG Interpretation ABG results: PT/INR, D-dimer PT 11.3 Seconds (9.4-12.1) 02/09/18 11:44 - Attending Attestation I examined this patient and my medical decision-making was reviewed with the Resident Physician. I agree with the documented findings, disposition and treatment plan as described except to the extent set forth below.
[2018-02-12 11:16] LABS: Hematocrit 35.9 % (35.3-44.9); Hemoglobin 11.9 g/dL (11.5-15.4); Mean Corpuscular HGB Conc 33.1 g/dL (31.6-35.5); Mean Corpuscular Hemoglobin 29.1 pg (28.0-33.3); Mean Corpuscular Volume 87.8 fL (83.0-100.0); Mean Platelet Volume 11.1 fL (9.4-12.4); Platelet Count 258 K/mcL (140-400); Red Blood Count 4.09 M/mcL (3.82-4.97); Red Cell Distribution Width 13.3 % (11.5-14.5)
[2018-02-12 11:35] LABS: BUN/Creatinine Ratio 27 (6-26); Blood Urea Nitrogen 25 mg/dL (8-23); Calcium 8.8 mg/dL (8.6-10.3); Carbon Dioxide 22 mEq/L (23-29); Chloride 103 mEq/L (98-107); Glucose 163 mg/dL (70-105); Osmolality,Calculated 288 (280-300); Potassium 3.5 mEq/L (3.5-5.1); Sodium 135 mEq/L (136-145); eGFR For African Americans > 60 (> 60); eGFR For Non-African Americans 59 (> 60)
--- NOTE | 2018-02-12 11:40 | Physician Discharge Referral ---
ExtendedCare Referral Info Transfer To: [facility] Provider in Charge after Transfer: PCP Institutional Level of Care: Intermediate - Diagnosis (1) Cardiomyopathy Priority: Secondary Status: Acute (2) ST elevation myocardial infarction (STEMI) Priority: Primary Status: Acute (3) DM type 2 (diabetes mellitus, type 2) Priority: Secondary Status: Chronic (4) Essential (primary) hypertension Priority: Secondary Status: Chronic Expected Duration of Placement: about 2 weeks Prognosis: Fair Aware of Diagnosis: Patient, Family Aware of Prognosis: Patient, Family - Transfer Medications Home Medications: Acetaminophen [Tylenol] 500 mg PO Q6HR PRN tablet 02/12/18 [Rx] Aspirin 81 mg PO DAILY tab.chew 02/12/18 [Rx] Atorvastatin [Lipitor] 80 mg PO HS tablet 02/12/18 [Rx] Clopidogrel [Plavix] 75 mg PO DAILY tablet 02/12/18 [Rx] Insulin DETEMIR [Levemir] 20 unit SQ BID [id number] 02/12/18 [Rx] Lisinopril [Zestril] 2.5 mg PO DAILY tablet 02/12/18 [Rx] Metoprolol XL (24 HR) Succ [Toprol Xl] 25 mg PO BID tab.er.24h 02/12/18 [Rx] Nitroglycerin 0.4 mg SL Q5MIN PRN tab.subl 02/12/18 [Rx] Allergies/Adverse Reactions: 3 Allergy/AdvReac Type Severity Reaction Status Date / Time No Known Allergies Allergy Verified 02/09/18 13:31 - Respiratory Orders None Smoking Cessation: Smoking cessation has been advised. For more information, call the [place] Tobacco Quit Line at 9-033-NIOK-NOW. - Advance Directives Living Will: No Power of Advertising Writer: No Code Status: Full Code - Mobility Orders Ambulate (with assistance) - Rehabiliation Orders Rehab Potential: Good Rehab Orders: Evaluation for Physical Therapy, Evaluation for Occupational Therapy Other: RISK FACTORS: STOP SMOKING: If you smoke, STOP. Smoking or tobacco use significantly increases your risk of heart disease because nicotine causes the arteries to narrow or constrict. It also causes fats to stick to the artery. Your chances of having a heart attack are greatly increased if you continue to smoke. For more information, call the education line for smoking cessation 8-552-WSDFOJK EAT A LOW FAT/CHOLESTEROL/SODIUM DIET: This diet may help reduce your chances of having a heart attack. LIFTING: Avoid lifting anything more than 10 pounds for 5-7 days Prior to straining, laughing, sneezing and/or coughing, apply manual pressure directly over insertion site. ACTIVITY: You may walk or climb stairs as tolerated You can resume sexual activity as tolerated In general, you are encouraged to engage in a minimum of 30 minutes or more of moderate intensity physical activity, such as brisk walking, daily or at least 3 -4 times weekly BATHING Do not submerge the site into water (bath tub, hot tub, swimming pool) for 1 week. This can be a source for infection into the blood stream. You may shower after 24 hours SITE CARE: After 24 hours, you may remove the dressing and leave the site open to air. Keep the site clean and dry. Clean gently and pat dry. You can expect bruising and tenderness that gradually resolve within a week or two. Return to work as instructed per your physician Resume driving as instructed per physician Keep all scheduled follow up appointments Resume medications as instructed IMPORTANT: If prescribed a Platelet Aggregation Inhibitor such as, Plavix, Brilinta or Effient: Duration of therapy is minimum one year These medications are often used in combination with Aspirin in prevention of future heart attacks Never discontinue unless consult with your Cyber Security Analyst STROKE (CVA) Risk factors for a stroke are: Age, cigarette smoking, diabetes, excessive alcohol consumption, family history, high blood pressure, overweight, physical inactivity, prior stroke, heart attack, diagnosis of carotid artery stenosis or other artery disease. Warning signs: Sudden numbness or weakness of the face, arm or leg; especially on one side of the body, sudden confusion, trouble speaking or understanding, sudden trouble seeing in one or both eyes, sudden trouble walking, dizziness, loss of balance or coordination, sudden severe headache with no cause. Call 911 or go to the Emergency Room. CONGESTIVE HEART FAILURE: If you have been diagnosed with Congestive Heart Failure (CHF) and your symptoms return, make an appointment with your physician Weigh yourself daily. Notify your physician if you have a weight gain of two or more pounds in one day or five or more pounds in one week. If you experience any difficulty breathing, please call 911 BLEEDING: Although the risk of bleeding is minimal, it can happen. If you have any bleeding from the site, apply firm pressure above the puncture site for 10-15 minutes. If the bleeding does not stop, continue manual pressure and call 911 Contact your physician if: You develop a fever greater than 101 degrees Fahrenheit Your site becomes reddened or has any drainage You have an increase in pain or burning at the site or if a large knot forms at the site. If you experience chest pain, shortness of breath, dizziness, or extreme tiredness, stop the activity and rest. Please notify your physicians office if you experience any of these symptoms and they are not relieved by rest please call 911! - Diet Orders Cardiac (Cardiac diabetic diet) CERTIFICATION: I certify that the transfer of the above named patient to an Extended Care Facility is necessary for the continuing treatment of the diagnosis listed. The above information is true and accurate reflection of patient's current condition. Confidential - Redisclosure prohibited without a patient's written consent.
--- NOTE | 2018-02-12 11:44 | Discharge Summary ---
Orders not resulted at time of discharge: Pending orders 02/10/18 06:00 ECG 12 lead ECG [ECG] AM 0600 Date of Encounter: 02/12/18 Time of Encounter: 09:30 - Discharge Diagnosis (1) ST elevation myocardial infarction (STEMI) Priority: Primary Status: Acute Comments: Admitted as acute STEMI, underwent staged PCI. Qualifiers: Involved coronary artery: left circumflex coronary artery Qualified Code(s) : I21.21 - ST elevation (STEMI) myocardial infarction involving left circumflex coronary artery (2) Cardiomyopathy Priority: Secondary Status: Resolved Comments: LVEF 45%. Qualifiers: Cardiomyopathy type: ischemic Qualified Code(s): I25.5 - Ischemic cardiomyopathy (3) DM type 2 (diabetes mellitus, type 2) Priority: Secondary Status: Chronic Comments: DM, on insulin. Qualifiers: Diabetes mellitus intermediate insulin use: without intermediate use Diabetes mellitus complication status: with hypoglycemia Diabetes mellitus complication detail: without coma Qualified Code(s): E11.649 - Type 2 diabetes mellitus with hypoglycemia without coma (4) Essential (primary) hypertension Priority: Secondary Status: Chronic Comments: HTN, BP controlled. - Hospital Course Hospital course: Ms. Nichole is a 72 year old female who was admitted for acute STEMI with PCI to circumflex, patient then underwent staged PCI to LAD. LVEF noted to be 45%. Patient deneis chest pain. Educated on dual anti-platelet therapy uninterrupted for at least one year, states understanding. Rigtht groin ecchymosis noted, no hematoma. Left groin site without hematoma or ecchymosis. Femoral access site management education reveiwed with patient, states understanding. LVEF 45%, on BB and james inhibitor. Euvolemic on exam. CHF education reinforced with pateint, states understanding. Patient is on statin. Hemoglobin stable. WBC mildly elevated, discussed with Dr.John Jaffe, patient is afebrile. Consider repeating CBC in one week. Denies difficulty urinating or burning with urination. Patient is being prepped for discharge to [facility] for rehab in stable condition. Patient will follow with [facility], follow up set. - Time Spent with Patient Total time spent providing and/or coordinating discharge services: Less than 30 minutes - Discharge Medications Home Medications: Acetaminophen [Tylenol] 500 mg PO Q6HR PRN tablet 02/12/18 [Rx] Aspirin 81 mg PO DAILY tab.chew 02/12/18 [Rx] Atorvastatin [Lipitor] 80 mg PO HS tablet 02/12/18 [Rx] Clopidogrel [Plavix] 75 mg PO DAILY tablet 02/12/18 [Rx] Insulin DETEMIR [Levemir] 20 unit SQ BID [id number] 02/12/18 [Rx] Lisinopril [Zestril] 2.5 mg PO DAILY tablet 02/12/18 [Rx] Metoprolol XL (24 HR) Succ [Toprol Xl] 25 mg PO BID tab.er.24h 02/12/18 [Rx] Nitroglycerin 0.4 mg SL Q5MIN PRN tab.subl 02/12/18 [Rx] Allergies/Adverse Reactions: 3 Allergy/AdvReac Type Severity Reaction Status Date / Time No Known Allergies Allergy Verified 02/09/18 13:31 Date of admission: 02/09/18 13:04 Primary care physician: PCP NONE Consults: 02/09/18 14:07 Consult to Cardiac Rehabilitation-Phase1 [CONS] Routine Comment: Reason for Consult: AMI Call Completed: Yes Consult to Nurse Navigator [CONS] Routine Comment: 02/09/18 14:15 Consult to Hospitalist [CONS] Routine Consulting Provider: Hospitalist Basim Reason for Consult: med mgt, DM mgt Call Completed: Yes 02/10/18 09:05 Consult to Reinforcing [employer] Worker Helper [CONS] Routine Reason for SW Consult: Patient will need new PCP. She will need assistance affording medications. Thanks. 02/11/18 10:47 Consult to Physical Therapy [CONS] Routine Comment: Evaluate, develop and implement POC Reason for Consult: Eval for rehab placement Does patient have active BEDREST order?: No Is patient medically & hemodynamically stable?: Yes Discharging clinician: Mary Concepcion Anticipated date of discharge: 02/12/18 Physical Examination Vital Signs, Last 4 Hours Temp Pulse Resp BP Pulse Ox 02/12/18 08:00 98.3 F 71 16 100/65 100 General: Conversant, No Apparent Distress HEENT: Atraumatic, Normocephaly, Mucus Membranes Moist Neck: No JVD, Normal carotid pulses Cardiac: Reg Rate and Rhythm, Normal S1 and S2, No Murmur Lungs: Normal Breath Sounds, No Wheeze, Rales, Rhonchi Neuro: Alert and responsive, No focal deficits noted Abdomen: Soft, Non-Tender Skin: No rashes noted on visualized skin, Other (Right groin access site with ecchymosis noted, no hematoma. Left groin acces site without ecchymosis or hematoma. ) Musculoskeletal: No Chest Wall Tenderness Extremities: No Clubbing, No Cyanosis, No Edema, Normal Pulses - Patient Status Disposition: Transfer SNF Condition: Fair Functional capacity at discharge: independent ambulation (with assistance) Overall status at discharge: patient is progressing back to baseline - Discharge Instructions Follow Up With: NONE,PCP [Primary Care Provider] - Additional Instructions: RISK FACTORS: STOP SMOKING: If you smoke, STOP. Smoking or tobacco use significantly increases your risk of heart disease because nicotine causes the arteries to narrow or constrict. It also causes fats to stick to the artery. Your chances of having a heart attack are greatly increased if you continue to smoke. For more information, call the education line for smoking cessation 7-031-OLMGOIK EAT A LOW FAT/CHOLESTEROL/SODIUM DIET: This diet may help reduce your chances of having a heart attack. LIFTING: Avoid lifting anything more than 10 pounds for 5-7 days Prior to straining, laughing, sneezing and/or coughing, apply manual pressure directly over insertion site. ACTIVITY: You may walk or climb stairs as tolerated You can resume sexual activity as tolerated In general, you are encouraged to engage in a minimum of 30 minutes or more of moderate intensity physical activity, such as brisk walking, daily or at least 3 -4 times weekly BATHING Do not submerge the site into water (bath tub, hot tub, swimming pool) for 1 week. This can be a source for infection into the blood stream. You may shower after 24 hours SITE CARE: After 24 hours, you may remove the dressing and leave the site open to air. Keep the site clean and dry. Clean gently and pat dry. You can expect bruising and tenderness that gradually resolve within a week or two. Return to work as instructed per your physician Resume driving as instructed per physician Keep all scheduled follow up appointments Resume medications as instructed IMPORTANT: If prescribed a Platelet Aggregation Inhibitor such as, Plavix, Brilinta or Effient: Duration of therapy is minimum one year These medications are often used in combination with Aspirin in prevention of future heart attacks Never discontinue unless consult with your Mechanical Oxidizer STROKE (CVA) Risk factors for a stroke are: Age, cigarette smoking, diabetes, excessive alcohol consumption, family history, high blood pressure, overweight, physical inactivity, prior stroke, heart attack, diagnosis of carotid artery stenosis or other artery disease. Warning signs: Sudden numbness or weakness of the face, arm or leg; especially on one side of the body, sudden confusion, trouble speaking or understanding, sudden trouble seeing in one or both eyes, sudden trouble walking, dizziness, loss of balance or coordination, sudden severe headache with no cause. Call 911 or go to the Emergency Room. CONGESTIVE HEART FAILURE: If you have been diagnosed with Congestive Heart Failure (CHF) and your symptoms return, make an appointment with your physician Weigh yourself daily. Notify your physician if you have a weight gain of two or more pounds in one day or five or more pounds in one week. If you experience any difficulty breathing, please call 911 BLEEDING: Although the risk of bleeding is minimal, it can happen. If you have any bleeding from the site, apply firm pressure above the puncture site for 10-15 minutes. If the bleeding does not stop, continue manual pressure and call 911 Contact your physician if: You develop a fever greater than 101 degrees Fahrenheit Your site becomes reddened or has any drainage You have an increase in pain or burning at the site or if a large knot forms at the site. If you experience chest pain, shortness of breath, dizziness, or extreme tiredness, stop the activity and rest. Please notify your physicians office if you experience any of these symptoms and they are not relieved by rest please call 911! - Diet and Activity Activity: increase activity as tolerated (with limitations as above. ) Diet: diabetic diet, low fat, low cholesterol, low salt diet - VTE Reasons for not Prescribing Prophylaxis: Not indicated-Anticoagulated or INR therapeutic Documentation of Mechanical Device: Intermittent pneumatic compression device
== END 2018-02-12 13:20 | DRG 247 ==
LOC: EMEROO 11:27 → ICNU 12:32
PROVIDERS: ADMIT Internal Medicine Interventional Cardiology; ATTEND Internal Medicine Interventional Cardiology

== ENCOUNTER 2019-03-11 08:30 | Observation (INO) ==
[2019-03-11] MEDS ORDERED: Nitroglycerin 0.4 MG TAB.SUBL SL PRN (08:31)
[2019-03-11] MEDS ORDERED: Aspirin 81 MG TAB.CHEW PO ONE (08:31)
[2019-03-11] MEDS ORDERED: 0.9 % Sodium Chloride 1,000 ML IVC ONE (08:48)
[2019-03-11 08:53] LABS: Hemoglobin 12.3 g/dL (11.5-15.4); Mean Corpuscular HGB Conc 31.5 g/dL (31.6-35.5); Mean Corpuscular Hemoglobin 26.9 pg (28.0-33.3); Mean Corpuscular Volume 85.2 fL (83.0-100.0); Platelet Count 242 K/mcL (140-400); Red Blood Count 4.58 M/mcL (3.82-4.97); Red Cell Distribution Width 14.6 % (11.5-14.5); Segmented Neutrophils % 57.9 %; White Blood Count 7.6 K/mcL (4.3-11.1)
[2019-03-11 08:54] LABS: Basophils % 0.4 %; Eosinophils # 0.4 K/mcL (0.0-0.6); Eosinophils % 4.9 %; Immature Granulocytes % 0.9 % (0-4); Lymphocytes % 26.9 %; Monocytes # 0.7 K/mcL (0.0-1.3); Neutrophils # 4.4 K/mcL (1.6-8.9)
[2019-03-11 09:14] LABS: BUN/Creatinine Ratio 30 (6-26); Blood Urea Nitrogen 35 mg/dL (8-23); Carbon Dioxide 23 mEq/L (23-29); Chloride 103 mEq/L (98-107); Glucose 175 mg/dL (70-105); Osmolality,Calculated 300 (280-300); Potassium 4.3 mEq/L (3.5-5.1); Sodium 139 mEq/L (136-145); eGFR For African Americans 56 (> 60); eGFR For Non-African Americans 46 (> 60)
[2019-03-11 09:15] LABS: Troponin I < 0.03 ng/mL (< 0.04)
[2019-03-11] MEDS ORDERED: Ondansetron 4 MG/2 ML VIAL IVP PRN (11:00)
[2019-03-11] MEDS ORDERED: Naloxone 0.4 MG/ML INJ IVP PRN (11:00)
[2019-03-11] MEDS ORDERED: Ipratropium/Albuterol Neb 3 ML IH PRN (11:05)
[2019-03-11] MEDS: Insulin LISPRO 300 UNITS/3 ML VIAL SQ SCH ×2 (13:25→17:19)
[2019-03-11] MEDS ORDERED: Perflutren Lipid Microsphere 1.3 ML in 0.9 % Sodium Chloride 8.7 ML IVP ONE (14:26)
[2019-03-11] MEDS ORDERED: Perflutren Lipid Microsphere 2 ML VIAL ONE (14:31)
[2019-03-11] MEDS: *HR* Heparin 5,000 UNIT/ML VIAL SQ SCH (17:19)
[2019-03-11] MEDS: Metoprolol XL (24 HR) Succ 25 MG TAB.ER.24H PO SCH (20:33)
[2019-03-11] MEDS ORDERED: Insulin LISPRO 300 UNITS/3 ML VIAL SQ SCH (21:00)
[2019-03-12 05:11] LABS: Basophils % 0.5 %; Eosinophils # 0.5 K/mcL (0.0-0.6); Eosinophils % 5.9 %; Hematocrit 37.3 % (35.3-44.9); Hemoglobin 11.7 g/dL (11.5-15.4); Immature Granulocytes % 0.7 % (0-4); Lymphocytes # 2.6 K/mcL (0.6-4.6); Lymphocytes % 29.6 %; Mean Corpuscular HGB Conc 31.4 g/dL (31.6-35.5); Mean Corpuscular Hemoglobin 27.3 pg (28.0-33.3); Mean Corpuscular Volume 86.9 fL (83.0-100.0); Mean Platelet Volume 10.3 fL (9.4-12.4); Monocytes # 0.8 K/mcL (0.0-1.3); Monocytes % 9.4 %; Neutrophils # 4.7 K/mcL (1.6-8.9); Platelet Count 220 K/mcL (140-400); Red Blood Count 4.29 M/mcL (3.82-4.97); Red Cell Distribution Width 14.6 % (11.5-14.5); Segmented Neutrophils % 53.9 %; White Blood Count 8.7 K/mcL (4.3-11.1)
[2019-03-12 05:29] LABS: BUN/Creatinine Ratio 27 (6-26); Blood Urea Nitrogen 29 mg/dL (8-23); Calcium 9.2 mg/dL (8.6-10.3); Carbon Dioxide 24 mEq/L (23-29); Chloride 105 mEq/L (98-107); Glucose 168 mg/dL (70-105); Osmolality,Calculated 298 (280-300); Potassium 4.5 mEq/L (3.5-5.1); Sodium 139 mEq/L (136-145); eGFR For African Americans > 60 (> 60); eGFR For Non-African Americans 51 (> 60)
[2019-03-12] MEDS: *HR* Heparin 5,000 UNIT/ML VIAL SQ SCH (06:24)
[2019-03-12 07:32] VITALS: BP 131/74
[2019-03-12] MEDS: Insulin LISPRO 300 UNITS/3 ML VIAL SQ SCH (07:48)
[2019-03-12] MEDS: Metoprolol XL (24 HR) Succ 25 MG TAB.ER.24H PO SCH (07:48)
[2019-03-12] MEDS ORDERED: Aspirin Enteric Coated 81 MG Tablet PO SCH (09:00)
[2019-03-12] MEDS ORDERED: Furosemide 40 MG TABLET PO SCH (09:00)
[2019-03-12] MEDS ORDERED: Regadenoson 0.4 MG/5 ML SYRINGE IVP ONE (09:01)
== END 2019-03-12 10:51 | disposition left against medical advice (07) ==
LOC: EMEROOARM 08:30 → 3BNU 08:30
PROVIDERS: ADMIT Student in an Organized Health Care Education/Training Program; ATTEND Student in an Organized Health Care Education/Training Program

== ENCOUNTER 2020-06-23 16:46 | Inpatient (IN) ==
[2020-06-23] MEDS ORDERED: Isovue-370 500 ML BOTTLE IVP ONE (17:01)
[2020-06-23 17:18] LABS: Eosinophils # 0.3 K/mcL (0.0-0.6); Hematocrit 43.4 % (35.3-44.9); Hemoglobin 12.5 g/dL (11.5-15.4); Lymphocytes # 1.5 K/mcL (0.6-4.6); Mean Corpuscular HGB Conc 28.8 g/dL (31.6-35.5); Mean Corpuscular Hemoglobin 25.9 pg (28.0-33.3); Mean Platelet Volume 9.9 fL (9.4-12.4); Neutrophils # 3.2 K/mcL (1.6-8.9); Platelet Count 188 K/mcL (140-400); Red Blood Count 4.82 M/mcL (3.82-4.97); Red Cell Distribution Width 16.4 % (11.5-14.5); White Blood Count 5.9 K/mcL (4.3-11.1)
[2020-06-23 17:20] LABS: Basophils % 0.3 %; Eosinophils % 5.5 %; Immature Granulocytes % 0.7 % (0-4); Lymphocytes % 25.5 %; Monocytes # 0.7 K/mcL (0.0-1.3); Monocytes % 12.2 %; Segmented Neutrophils % 55.8 %
[2020-06-23 17:34] LABS: BUN/Creatinine Ratio 17 (6-26); Blood Urea Nitrogen 22 mg/dL (8-23); Calcium 8.5 mg/dL (8.6-10.3); Carbon Dioxide 26 mEq/L (23-29); Chloride 102 mEq/L (98-107); Glucose 135 mg/dL (70-105); Osmolality,Calculated 291 (280-300); Potassium 4.6 mEq/L (3.5-5.1); Sodium 138 mEq/L (136-145); eGFR For African Americans 49 (> 60); eGFR For Non-African Americans 40 (> 60)
[2020-06-23 17:35] LABS: Troponin I < 0.03 ng/mL (< 0.04)
[2020-06-23] MEDS ORDERED: 0.9 % Sodium Chloride 1,000 ML IVC ONE (17:44)
[2020-06-23] MEDS ORDERED: Azithromycin 500 MG in 0.9 % Sodium Chloride 250 ML IVPB ONE (18:36)
[2020-06-23] MEDS ORDERED: cefTRIAXone 1,000 MG in 0.9 % Sodium Chloride Mini Bag 100 ML IVPB ONE (18:36)
[2020-06-23] MEDS ORDERED: cefTRIAXone 1,000 MG in Water for inj. (sterile) 10 ML IVP STA (19:09)
[2020-06-23 22:18] LABS: INR 1.1; Prothrombin Time 13.1 Seconds (9.4-12.1)
[2020-06-23] MEDS ORDERED: Acetaminophen 325 MG TABLET PO PRN (22:52)
[2020-06-23] MEDS ORDERED: Ondansetron ODT 4 MG TAB.RAPDIS SL PRN (22:52)
[2020-06-23] MEDS ORDERED: Insulin DETEMIR 100 UNIT/ML X5UNITS SQ SCH (23:00)
[2020-06-23] MEDS ORDERED: *HR* Dextrose 50 % in Water (Vial) 50 ML VIAL IVP PRN (23:06)
[2020-06-23] MEDS ORDERED: Dextrose Gel 15 GM/37.5 ML TUBE PO PRN ×2 (23:06)
[2020-06-23] MEDS ORDERED: D5% in Water 1,000 ML IVC PRN (23:06)
[2020-06-24 01:16] LABS: Basophils % 0.5 %; Hematocrit 39.3 % (35.3-44.9); Immature Granulocytes % 0.8 % (0-4); Red Cell Distribution Width 16.3 % (11.5-14.5)
[2020-06-24 01:18] LABS: Eosinophils # 0.2 K/mcL (0.0-0.6); Eosinophils % 3.6 %; Hemoglobin 11.1 g/dL (11.5-15.4); Lymphocytes # 1.7 K/mcL (0.6-4.6); Lymphocytes % 26.2 %; Mean Corpuscular HGB Conc 28.2 g/dL (31.6-35.5); Mean Corpuscular Hemoglobin 25.8 pg (28.0-33.3); Mean Corpuscular Volume 91.2 fL (83.0-100.0); Mean Platelet Volume 10.3 fL (9.4-12.4); Monocytes # 0.9 K/mcL (0.0-1.3); Monocytes % 14.7 %; Neutrophils # 3.5 K/mcL (1.6-8.9); Platelet Count 168 K/mcL (140-400); Red Blood Count 4.31 M/mcL (3.82-4.97); Segmented Neutrophils % 54.2 %; White Blood Count 6.4 K/mcL (4.3-11.1)
[2020-06-24 01:33] LABS: Calcium 8.1 mg/dL (8.6-10.3); Potassium 4.3 mEq/L (3.5-5.1)
[2020-06-24 01:45] LABS: Anisocytosis 1+ (Not Present); Hypochromasia Present (Not Present)
[2020-06-24 01:46] LABS: Platelet Estimate Normal (Normal)
[2020-06-24] MEDS: Piperacillin/Tazobactam 3.375 GM in 0.9 % Sodium Chloride Mini Bag 100 ML IVPB SCH ×2 (02:13→08:08)
[2020-06-24] MEDS: Insulin LISPRO 300 UNITS/3 ML VIAL SQ SCH ×4 (02:14→17:20)
[2020-06-24] MEDS: Dexamethasone 4 MG/ML VIAL IVP SCH (08:07)
[2020-06-24] MEDS: Aspirin Enteric Coated 81 MG Tablet PO SCH (08:07)
[2020-06-24] MEDS ORDERED: Insulin DETEMIR 100 UNIT/ML X5UNITS SQ SCH (09:00)
[2020-06-24] MEDS ORDERED: Azithromycin 500 MG in 0.9 % Sodium Chloride 250 ML IVPB SCH (09:00)
[2020-06-24 16:36] LABS: Albumin 3.8 g/dL (3.5-5.7); Albumin/Globulin Ratio 1.1 (1.1-2.2); Bilirubin,Direct 0.2 mg/dL (0.0-0.2); Bilirubin,Indirect 0.3 mg/dL (0.0-1.0); Bilirubin,Total 0.5 mg/dL (0.3-1.0); Globulin 3.4 g/dL (2.4-3.5); Total Protein 7.2 g/dL (6.4-8.9)
[2020-06-24] MEDS: Furosemide 40 MG/4 ML VIAL IVP SCH (17:21)
[2020-06-24 19:38] LABS: RBC,Pleural Fluid < 2000 RBC/mcL
[2020-06-24 19:51] LABS: Total Protein,Pleural Fluid 3.2 g/dL
[2020-06-24 20:24] LABS: Appearance of Pleural Fl Clear (Clear)
[2020-06-24 20:25] LABS: Basophils,Pleural Fluid 0 %; Eosinophils,Pleural Fluid 0 %
[2020-06-24] MEDS: *HR* Enoxaparin 40 MG/0.4 ML SYRINGE SQ SCH (21:19)
[2020-06-25] MEDS: Insulin LISPRO 300 UNITS/3 ML VIAL SQ SCH ×5 (00:27→20:52)
[2020-06-25] MEDS: Aspirin Enteric Coated 81 MG Tablet PO SCH (08:32)
[2020-06-25] MEDS: Dexamethasone 4 MG/ML VIAL IVP SCH (08:32)
[2020-06-25] MEDS: Furosemide 40 MG/4 ML VIAL IVP SCH ×2 (08:33→16:44)
[2020-06-25] MEDS: *HR* Enoxaparin 40 MG/0.4 ML SYRINGE SQ SCH ×2 (08:33→21:16)
[2020-06-25 11:28] LABS: Hematocrit 40.6 % (35.3-44.9); Mean Corpuscular HGB Conc 29.6 g/dL (31.6-35.5); Mean Corpuscular Hemoglobin 26.4 pg (28.0-33.3); Mean Corpuscular Volume 89.2 fL (83.0-100.0); Mean Platelet Volume 10.2 fL (9.4-12.4); Platelet Count 179 K/mcL (140-400); Red Blood Count 4.55 M/mcL (3.82-4.97); Red Cell Distribution Width 16.2 % (11.5-14.5); White Blood Count 5.4 K/mcL (4.3-11.1)
[2020-06-25 11:42] LABS: INR 1.1; Prothrombin Time 12.8 Seconds (9.4-12.1)
[2020-06-25 11:49] LABS: Albumin 3.7 g/dL (3.5-5.7); Albumin/Globulin Ratio 1.1 (1.1-2.2); Bilirubin,Direct 0.2 mg/dL (0.0-0.2); Bilirubin,Indirect 0.4 mg/dL (0.0-1.0); Bilirubin,Total 0.6 mg/dL (0.3-1.0); Calcium 8.8 mg/dL (8.6-10.3); Globulin 3.3 g/dL (2.4-3.5); Magnesium 1.9 mg/dL (1.6-2.6); Phosphorous 3.5 mg/dL (2.7-4.5); Potassium 4.3 mEq/L (3.5-5.1)
[2020-06-25] MEDS: Insulin DETEMIR 100 UNIT/ML X5UNITS SQ SCH (21:16)
[2020-06-26] MEDS: Insulin LISPRO 300 UNITS/3 ML VIAL SQ SCH ×3 (08:39→16:32)
[2020-06-26] MEDS: *HR* Enoxaparin 40 MG/0.4 ML SYRINGE SQ SCH (09:25)
[2020-06-26] MEDS: Aspirin Enteric Coated 81 MG Tablet PO SCH (09:25)
[2020-06-26] MEDS: Dexamethasone 4 MG/ML VIAL IVP SCH (09:26)
[2020-06-26] MEDS: Furosemide 40 MG/4 ML VIAL IVP SCH ×2 (09:26→16:32)
[2020-06-26] MEDS: Nystatin POWDER 30 GM BOTTLE TP SCH (09:26)
[2020-06-26 09:34] LABS: Calcium 8.9 mg/dL (8.6-10.3)
[2020-06-26] MEDS ORDERED: Haloperidol Lactate 5 MG/ML VIAL IM ONE (22:20)
[2020-06-27] MEDS: *HR* Enoxaparin 40 MG/0.4 ML SYRINGE SQ SCH ×3 (00:26→20:00)
[2020-06-27] MEDS: Insulin DETEMIR 100 UNIT/ML X5UNITS SQ SCH ×2 (00:26→19:59)
[2020-06-27] MEDS: Insulin LISPRO 300 UNITS/3 ML VIAL SQ SCH ×5 (00:26→19:57)
[2020-06-27] MEDS: Nystatin POWDER 30 GM BOTTLE TP SCH ×3 (00:27→20:00)
[2020-06-27 01:25] LABS: Bacteria,Urine Few per hpf (None-Few); Bilirubin,Urine Negative (Negative); Blood,Urine Small (Negative); Clarity,Urine Turbid (Clear); Color,Urine Light-Yellow (Yellow); Glucose,Urine (UA) Normal (Normal); Ketones,Urine Negative (Negative); Leukocyte Esterase,Urine Large (Negative); Mucus,Urine Few per lpf (None-Few); Nitrite,Urine Negative (Negative); PH,Urine 7.5 pH Units (5.0-8.0); Protein,Urine 70 mg/dL (Neg-Trace); Specific Gravity,Urine 1.012 (1.010-1.025); Squamous Epithelial Cell,Urine Moderate per hpf (None-Few); Urobilinogen,Urine Normal (Normal); WBC,Urine 15-30 per hpf (0-3)
[2020-06-27 06:04] LABS: BUN/Creatinine Ratio 26 (6-26); Blood Urea Nitrogen 27 mg/dL (8-23); Carbon Dioxide 27 mEq/L (23-29); Chloride 92 mEq/L (98-107); Glucose 149 mg/dL (70-105); Osmolality,Calculated 284 (280-300); Potassium 4.7 mEq/L (3.5-5.1); Sodium 133 mEq/L (136-145); eGFR For African Americans > 60 (> 60); eGFR For Non-African Americans 52 (> 60)
[2020-06-27] MEDS: Dexamethasone 4 MG/ML VIAL IVP SCH (08:42)
[2020-06-27] MEDS: Aspirin Enteric Coated 81 MG Tablet PO SCH (08:42)
[2020-06-27] MEDS: Furosemide 40 MG/4 ML VIAL IVP SCH ×2 (08:42→17:22)
[2020-06-27] MEDS ORDERED: clonazePAM 0.5 MG TABLET PO PRN (11:41)
[2020-06-27] MEDS ORDERED: QUEtiapine Fumarate 25 MG TABLET PO SCH (21:00)
[2020-06-28 05:16] LABS: BUN/Creatinine Ratio 28 (6-26); Blood Urea Nitrogen 28 mg/dL (8-23); Calcium 8.6 mg/dL (8.6-10.3); Carbon Dioxide 33 mEq/L (23-29); Chloride 95 mEq/L (98-107); Glucose 102 mg/dL (70-105); Osmolality,Calculated 290 (280-300); Potassium 3.9 mEq/L (3.5-5.1); Sodium 137 mEq/L (136-145); eGFR For African Americans > 60 (> 60); eGFR For Non-African Americans 55 (> 60)
[2020-06-28 07:41] LABS: Estimated Average Glucose 169 mg/dl
[2020-06-28] MEDS: Aspirin Enteric Coated 81 MG Tablet PO SCH (07:51)
[2020-06-28] MEDS: Furosemide 40 MG/4 ML VIAL IVP SCH ×2 (07:51→16:36)
[2020-06-28] MEDS: Nystatin POWDER 30 GM BOTTLE TP SCH (07:52)
[2020-06-28] MEDS: *HR* Enoxaparin 40 MG/0.4 ML SYRINGE SQ SCH (07:52)
[2020-06-28] MEDS: Insulin LISPRO 300 UNITS/3 ML VIAL SQ SCH ×3 (07:54→16:36)
[2020-06-28 08:00] VITALS: BP 118/63
== END 2020-06-28 18:25 | DRG 177 ==
LOC: 2NENU 16:46 → EMEROOARM 16:46 → SUATTDRO 22:18 → 2NENU 22:58
PROVIDERS: ADMIT Family Medicine; ATTEND Internal Medicine

== ENCOUNTER 2020-07-26 19:24 | Inpatient (IN) ==
[2020-07-26] MEDS ORDERED: Isovue-370 500 ML BOTTLE IVP ONE (19:47)
[2020-07-26] MEDS: 0.9 % Sodium Chloride 1,000 ML IVC SCH ×2 (20:09→21:35)
[2020-07-26 20:25] LABS: Basophils # 0.1 K/mcL (0.0-0.2); Basophils % 0.4 %; Eosinophils # 0.4 K/mcL (0.0-0.6); Eosinophils % 3.2 %; Hematocrit 31.8 % (35.3-44.9); Hemoglobin 9.8 g/dL (11.5-15.4); Immature Granulocytes % 2.6 % (0-4); Lymphocytes # 1.1 K/mcL (0.6-4.6); Lymphocytes % 8.6 %; Mean Corpuscular HGB Conc 30.8 g/dL (31.6-35.5); Mean Corpuscular Volume 84.4 fL (83.0-100.0); Mean Platelet Volume 9.7 fL (9.4-12.4); Monocytes # 1.1 K/mcL (0.0-1.3); Monocytes % 8.6 %; Neutrophils # 9.9 K/mcL (1.6-8.9); Platelet Count 315 K/mcL (140-400); Red Blood Count 3.77 M/mcL (3.82-4.97); Segmented Neutrophils % 76.6 %; White Blood Count 12.9 K/mcL (4.3-11.1)
[2020-07-26 20:30] LABS: VBG HCO3 22 mEq/L (21-27); VBG PCO2 36 mmHg (41-51); VBG PO2 109 mmHg (25-50)
[2020-07-26 20:35] LABS: INR 1.3; Prothrombin Time 14.5 Seconds (9.4-12.1)
[2020-07-26 20:38] LABS: Activated Partial Thrombo Time 32.4 Seconds (26.0-36.0)
[2020-07-26 20:44] LABS: Bacteria,Urine Few per hpf (None-Few); Bilirubin,Urine Negative (Negative); Blood,Urine Negative (Negative); Clarity,Urine Turbid (Clear); Color,Urine Yellow (Yellow); Glucose,Urine (UA) Normal (Normal); Hyaline Casts,Urine Moderate per lpf (None Seen); Ketones,Urine Negative (Negative); Leukocyte Esterase,Urine Small (Negative); Mucus,Urine Few per lpf (None-Few); Nitrite,Urine Negative (Negative); PH,Urine 5.5 pH Units (5.0-8.0); Protein,Urine 70 mg/dL (Neg-Trace); RBC,Urine 0-3 per hpf (0-3); Specific Gravity,Urine 1.025 (1.010-1.025); Squamous Epithelial Cell,Urine Moderate per hpf (None-Few)
[2020-07-26 20:51] LABS: Alanine Aminotransferase 7 Units/L (7-52); Albumin/Globulin Ratio 0.9 (1.1-2.2); Alkaline Phosphatase 178 Units/L (34-104); Aspartate Amino Transferase 14 Units/L (13-39); BUN/Creatinine Ratio 16 (6-26); Bilirubin,Direct 0.2 mg/dL (0.0-0.2); Bilirubin,Indirect 0.5 mg/dL (0.0-1.0); Bilirubin,Total 0.7 mg/dL (0.3-1.0); Blood Urea Nitrogen 15 mg/dL (8-23); Calcium 8.3 mg/dL (8.6-10.3); Carbon Dioxide 22 mEq/L (23-29); Chloride 99 mEq/L (98-107); Globulin 3.4 g/dL (2.4-3.5); Glucose 138 mg/dL (70-105); Lipase 21 Units/L (11-82); Magnesium 1.9 mg/dL (1.6-2.6); Osmolality,Calculated 275 (280-300); Phosphorous 3.3 mg/dL (2.7-4.5); Potassium 3.9 mEq/L (3.5-5.1); Sodium 131 mEq/L (136-145); Total Protein 6.4 g/dL (6.4-8.9); Troponin I 0.04 ng/mL (< 0.04); eGFR For African Americans > 60 (> 60); eGFR For Non-African Americans 60 (> 60)
[2020-07-26] MEDS ORDERED: Morphine Sulfate 2 MG/ML SYRINGE IVP STA (21:59)
[2020-07-26] MEDS ORDERED: Vancomycin 1,500 MG/265 ML IV.SOLN IVPB ONE (22:00)
[2020-07-27] MEDS ORDERED: Ondansetron 4 MG/2 ML VIAL IVP PRN (00:44)
[2020-07-27] MEDS ORDERED: Naloxone 0.4 MG/ML INJ IVP PRN (00:44)
[2020-07-27] MEDS: QUEtiapine Fumarate 25 MG TABLET PO SCH ×2 (01:10→20:16)
[2020-07-27] MEDS ORDERED: D5% in Water 1,000 ML IVC PRN (02:52)
[2020-07-27] MEDS ORDERED: Dextrose Gel 15 GM/37.5 ML TUBE PO PRN ×2 (02:52)
[2020-07-27] MEDS ORDERED: *HR* Dextrose 50 % in Water (Vial) 50 ML VIAL IVP PRN (02:52)
[2020-07-27] MEDS: *HR* Enoxaparin 40 MG/0.4 ML SYRINGE SQ SCH ×2 (05:58→23:28)
[2020-07-27 07:53] LABS: Basophils % 0.4 %; Eosinophils # 0.1 K/mcL (0.0-0.6); Eosinophils % 0.7 %; Hematocrit 32.1 % (35.3-44.9); Hemoglobin 9.5 g/dL (11.5-15.4); Immature Granulocytes % 2.2 % (0-4); Lymphocytes # 1.1 K/mcL (0.6-4.6); Lymphocytes % 10.5 %; Mean Corpuscular HGB Conc 29.6 g/dL (31.6-35.5); Mean Corpuscular Hemoglobin 25.7 pg (28.0-33.3); Mean Platelet Volume 9.8 fL (9.4-12.4); Monocytes % 9.5 %; Neutrophils # 8.3 K/mcL (1.6-8.9); Platelet Count 311 K/mcL (140-400); Red Blood Count 3.69 M/mcL (3.82-4.97); Red Cell Distribution Width 15.9 % (11.5-14.5); Segmented Neutrophils % 76.7 %; White Blood Count 10.8 K/mcL (4.3-11.1)
[2020-07-27 07:57] LABS: INR 1.2; Prothrombin Time 13.3 Seconds (9.4-12.1)
[2020-07-27] MEDS: Insulin LISPRO 300 UNITS/3 ML VIAL SQ SCH ×4 (07:58→20:16)
[2020-07-27] MEDS ORDERED: Furosemide 40 MG TABLET PO SCH (08:00)
[2020-07-27 08:08] LABS: Alanine Aminotransferase 6 Units/L (7-52); Albumin 2.8 g/dL (3.5-5.7); Albumin/Globulin Ratio 0.8 (1.1-2.2); Alkaline Phosphatase 154 Units/L (34-104); Aspartate Amino Transferase 12 Units/L (13-39); BUN/Creatinine Ratio 17 (6-26); Bilirubin,Total 0.4 mg/dL (0.3-1.0); Blood Urea Nitrogen 14 mg/dL (8-23); Calcium 8.2 mg/dL (8.6-10.3); Carbon Dioxide 24 mEq/L (23-29); Chloride 104 mEq/L (98-107); Globulin 3.3 g/dL (2.4-3.5); Glucose 115 mg/dL (70-105); Magnesium 1.9 mg/dL (1.6-2.6); Osmolality,Calculated 281 (280-300); Potassium 4.1 mEq/L (3.5-5.1); Sodium 135 mEq/L (136-145); Total Protein 6.1 g/dL (6.4-8.9); Troponin I 0.18 ng/mL (< 0.04); eGFR For African Americans > 60 (> 60); eGFR For Non-African Americans > 60 (> 60)
[2020-07-27 08:28] LABS: Ferritin 175 ng/mL (10-120)
[2020-07-27] MEDS: allopurinoL 100 MG TABLET PO SCH (08:30)
[2020-07-27] MEDS: Aspirin Enteric Coated 81 MG Tablet PO SCH (08:30)
[2020-07-27] MEDS: lisinopriL 5 MG TABLET PO SCH (08:30)
[2020-07-27] MEDS: Piperacillin/Tazobactam 3.375 GM in 0.9 % Sodium Chloride Mini Bag 100 ML IVPB SCH ×3 (08:31→22:37)
[2020-07-27] MEDS: Metoprolol XL (24 HR) Succ 25 MG TAB.ER.24H PO SCH ×2 (08:31→20:12)
[2020-07-27] MEDS: Furosemide 40 MG/4 ML VIAL IVP SCH ×2 (08:31→16:23)
[2020-07-27] MEDS ORDERED: predniSONE 20 MG TABLET PO SCH (09:00)
[2020-07-27 09:22] LABS: C-Reactive Protein 197 mg/L (Less than 10)
[2020-07-27] MEDS ORDERED: Perflutren Lipid Microsphere 1.3 ML in 0.9 % Sodium Chloride 8.7 ML IVP PRN (11:42)
[2020-07-27 12:24] LABS: Adenovirus Not Detected (Not Detect); Coronavirus 229E Not Detected (Not Detect); Coronavirus HKU1 Not Detected (Not Detect); Coronavirus NL63 Not Detected (Not Detect); Coronavirus OC43 Not Detected (Not Detect); Human Metapneumovirus Not Detected (Not Detect); Human Rhinovirus/Enterovirus DETECTED (Not Detect); SARS-CoV-2 Not Detected (Not Detect)
[2020-07-27 12:25] LABS: Bordetella Pertussis Not Detected (Not Detect); Chlamydophila pneumoniae Not Detected (Not Detect); Influenza A Subtype 2009 H1 Not Detected (Not Detect); Influenza B Not Detected (Not Detect); Mycoplasma pneumoniae Not Detected (Not Detect); Parainfluenza Virus 1 Not Detected (Not Detect); Parainfluenza Virus 2 Not Detected (Not Detect); Parainfluenza Virus 3 Not Detected (Not Detect); Parainfluenza Virus 4 Not Detected (Not Detect); Respiratory Syncytial Virus Not Detected (Not Detect)
[2020-07-27] MEDS: Vancomycin 1,500 MG/265 ML IV.SOLN IVPB SCH (12:44)
[2020-07-27] MEDS: Ipratropium/Albuterol Neb 3 ML IH SCH ×3 (16:00→23:26)
[2020-07-27] MEDS: Insulin DETEMIR 100 UNIT/ML X5UNITS SUBQ SCH (20:17)
[2020-07-27] MEDS ORDERED: Insulin DETEMIR 100 UNIT/ML X5UNITS SQ SCH (21:00)
[2020-07-28] MEDS: Ipratropium/Albuterol Neb 3 ML IH SCH ×5 (04:01→21:57)
[2020-07-28] MEDS: Insulin LISPRO 300 UNITS/3 ML VIAL SQ SCH ×4 (08:05→22:13)
[2020-07-28] MEDS: lisinopriL 5 MG TABLET PO SCH (08:38)
[2020-07-28] MEDS: allopurinoL 100 MG TABLET PO SCH (08:39)
[2020-07-28] MEDS ORDERED: *HR* FentaNYL (PF) 100 MCG/2 ML VIAL ONE (08:40)
[2020-07-28] MEDS ORDERED: *HR* Propofol 200 MG/20 ML VIAL IVP ONE (08:40)
[2020-07-28] MEDS: Piperacillin/Tazobactam 3.375 GM in 0.9 % Sodium Chloride Mini Bag 100 ML IVPB SCH (08:46)
[2020-07-28] MEDS: Furosemide 40 MG/4 ML VIAL IVP SCH ×2 (08:46→17:33)
[2020-07-28] MEDS: Metoprolol XL (24 HR) Succ 25 MG TAB.ER.24H PO SCH ×2 (08:46→22:06)
[2020-07-28] MEDS: Aspirin Enteric Coated 81 MG Tablet PO SCH (08:46)
[2020-07-28] MEDS: Vancomycin 1,500 MG/265 ML IV.SOLN IVPB SCH (13:13)
[2020-07-28] MEDS ORDERED: *HR* Etomidate 40 MG/20 ML VIAL IVP ONE (13:18)
[2020-07-28] MEDS ORDERED: Lidocaine HCL 4 ML Topical Solution (Laryng-O-Jet Kit Sterile Pak) TP ONE (13:30)
[2020-07-28] MEDS ORDERED: Ondansetron 4 MG/2 ML VIAL ONE (13:30)
[2020-07-28] MEDS ORDERED: *HR* Succinylcholine 200 MG/10 ML VIAL IVP ONE (13:30)
[2020-07-28] MEDS ORDERED: Lidocaine -MPF 2% 2 ML VIAL ONE (13:30)
[2020-07-28] MEDS ORDERED: Dexamethasone 4 MG/ML VIAL ONE (13:54)
[2020-07-28] MEDS ORDERED: *HR* Metoprolol 5 MG/5 ML VIAL IVP ONE (14:00)
[2020-07-28] MEDS ORDERED: *HR* Labetalol 20 MG/4 ML SYRINGE IVP PRN (14:19)
[2020-07-28] MEDS ORDERED: *HR* OxyCODONE Immed Rel 5 MG TABLET PO PRN (14:19)
[2020-07-28] MEDS ORDERED: Acetaminophen IV 1,000 MG/100 ML BAG IVPB ONE (14:19)
[2020-07-28] MEDS: *HR* HYDROmorphone (PF) 1 MG/ML SYRINGE IVP PRN ×2 (14:32→14:52)
[2020-07-28] MEDS: Ampicillin/Sulbactam 1,500 MG in 0.9 % Sodium Chloride Mini Bag 100 ML IVPB SCH ×2 (15:28→17:34)
[2020-07-28] MEDS: QUEtiapine Fumarate 25 MG TABLET PO SCH (22:06)
[2020-07-28] MEDS: Insulin DETEMIR 100 UNIT/ML X5UNITS SUBQ SCH (22:14)
[2020-07-29] MEDS: Ampicillin/Sulbactam 1,500 MG in 0.9 % Sodium Chloride Mini Bag 100 ML IVPB SCH ×5 (00:19→23:31)
[2020-07-29] MEDS: Ipratropium/Albuterol Neb 3 ML IH SCH ×8 (00:22→23:48)
[2020-07-29 02:55] LABS: Hematocrit 31.3 % (35.3-44.9); Hemoglobin 9.2 g/dL (11.5-15.4); Mean Corpuscular HGB Conc 29.4 g/dL (31.6-35.5); Mean Corpuscular Hemoglobin 25.5 pg (28.0-33.3); Mean Corpuscular Volume 86.7 fL (83.0-100.0); Mean Platelet Volume 9.6 fL (9.4-12.4); Platelet Count 346 K/mcL (140-400); Red Blood Count 3.61 M/mcL (3.82-4.97); Red Cell Distribution Width 15.9 % (11.5-14.5)
[2020-07-29 03:03] LABS: BUN/Creatinine Ratio 21 (6-26); Blood Urea Nitrogen 21 mg/dL (8-23); Calcium 8.2 mg/dL (8.6-10.3); Carbon Dioxide 27 mEq/L (23-29); Chloride 101 mEq/L (98-107); Glucose 257 mg/dL (70-105); Magnesium 1.7 mg/dL (1.6-2.6); Osmolality,Calculated 294 (280-300); Potassium 4.2 mEq/L (3.5-5.1); Sodium 136 mEq/L (136-145); eGFR For African Americans > 60 (> 60); eGFR For Non-African Americans 54 (> 60)
[2020-07-29] MEDS: *HR* Enoxaparin 40 MG/0.4 ML SYRINGE SQ SCH (05:38)
[2020-07-29] MEDS: lisinopriL 5 MG TABLET PO SCH (08:32)
[2020-07-29] MEDS: Furosemide 40 MG/4 ML VIAL IVP SCH ×2 (08:32→16:56)
[2020-07-29] MEDS: allopurinoL 100 MG TABLET PO SCH (08:32)
[2020-07-29] MEDS: Metoprolol XL (24 HR) Succ 25 MG TAB.ER.24H PO SCH ×2 (08:33→21:21)
[2020-07-29] MEDS: Insulin LISPRO 300 UNITS/3 ML VIAL SQ SCH ×4 (08:34→21:20)
[2020-07-29] MEDS: Aspirin Enteric Coated 81 MG Tablet PO SCH (08:36)
[2020-07-29] MEDS: Vancomycin 1,500 MG/265 ML IV.SOLN IVPB SCH (11:36)
[2020-07-29] MEDS: *HR* OxyCODONE Immed Rel 5 MG TABLET PO PRN (11:53)
[2020-07-29] MEDS: Acetaminophen 325 MG TABLET PO PRN (21:21)
[2020-07-29] MEDS: QUEtiapine Fumarate 25 MG TABLET PO SCH (21:21)
[2020-07-29] MEDS: Insulin DETEMIR 100 UNIT/ML X5UNITS SUBQ SCH (21:21)
[2020-07-30] MEDS: Ipratropium/Albuterol Neb 3 ML IH SCH ×6 (03:52→22:59)
[2020-07-30] MEDS: Ampicillin/Sulbactam 1,500 MG in 0.9 % Sodium Chloride Mini Bag 100 ML IVPB SCH ×4 (05:30→23:28)
[2020-07-30] MEDS: *HR* Enoxaparin 40 MG/0.4 ML SYRINGE SQ SCH (05:30)
[2020-07-30] MEDS: Insulin LISPRO 300 UNITS/3 ML VIAL SQ SCH ×4 (07:32→19:43)
[2020-07-30] MEDS ORDERED: *HR* LORazepam 1 MG TABLET PO ONE (09:12)
[2020-07-30] MEDS: *HR* OxyCODONE Immed Rel 5 MG TABLET PO PRN (09:22)
[2020-07-30] MEDS: allopurinoL 100 MG TABLET PO SCH (09:22)
[2020-07-30] MEDS: Metoprolol XL (24 HR) Succ 25 MG TAB.ER.24H PO SCH ×2 (09:23→19:59)
[2020-07-30] MEDS: Aspirin Enteric Coated 81 MG Tablet PO SCH (09:23)
[2020-07-30] MEDS: lisinopriL 5 MG TABLET PO SCH (09:23)
[2020-07-30] MEDS: Furosemide 40 MG/4 ML VIAL IVP SCH ×2 (09:33→18:17)
[2020-07-30] MEDS: Insulin DETEMIR 100 UNIT/ML X5UNITS SUBQ SCH (19:43)
[2020-07-30] MEDS: QUEtiapine Fumarate 25 MG TABLET PO SCH (19:59)
[2020-07-30] MEDS ORDERED: 0.9 % Sodium Chloride 250 ML ONE (23:13)
[2020-07-30] MEDS ORDERED: 0.9 % Sodium Chloride 250 ML IVC ONE (23:17)
[2020-07-30] MEDS: Acetaminophen 325 MG TABLET PO PRN (23:28)
[2020-07-31 00:49] LABS: Hematocrit 29.5 % (35.3-44.9); Hemoglobin 8.9 g/dL (11.5-15.4); Mean Corpuscular HGB Conc 30.2 g/dL (31.6-35.5); Mean Corpuscular Hemoglobin 26.3 pg (28.0-33.3); Mean Platelet Volume 9.1 fL (9.4-12.4); Platelet Count 316 K/mcL (140-400); Red Blood Count 3.39 M/mcL (3.82-4.97); Red Cell Distribution Width 15.9 % (11.5-14.5); White Blood Count 12.9 K/mcL (4.3-11.1)
[2020-07-31 01:05] LABS: Alanine Aminotransferase 6 Units/L (7-52); Albumin 2.6 g/dL (3.5-5.7); Albumin/Globulin Ratio 0.9 (1.1-2.2); Alkaline Phosphatase 118 Units/L (34-104); Aspartate Amino Transferase 13 Units/L (13-39); BUN/Creatinine Ratio 23 (6-26); Bilirubin,Total 0.4 mg/dL (0.3-1.0); Blood Urea Nitrogen 23 mg/dL (8-23); Calcium 7.9 mg/dL (8.6-10.3); Carbon Dioxide 27 mEq/L (23-29); Chloride 99 mEq/L (98-107); Globulin 2.9 g/dL (2.4-3.5); Glucose 133 mg/dL (70-105); Osmolality,Calculated 288 (280-300); Potassium 3.9 mEq/L (3.5-5.1); Sodium 136 mEq/L (136-145); Total Protein 5.5 g/dL (6.4-8.9); eGFR For African Americans > 60 (> 60); eGFR For Non-African Americans 54 (> 60)
[2020-07-31 01:13] LABS: Eosinophils # 0.8 K/mcL (0.0-0.6); Lymphocytes # 1.6 K/mcL (0.6-4.6); Monocytes # 0.5 K/mcL (0.0-1.3); Neutrophils # 10.1 K/mcL (1.6-8.9); Platelet Estimate Normal (Normal)
[2020-07-31] MEDS: Ipratropium/Albuterol Neb 3 ML IH SCH ×5 (04:55→20:39)
[2020-07-31] MEDS: *HR* Enoxaparin 40 MG/0.4 ML SYRINGE SQ SCH (06:25)
[2020-07-31] MEDS: Ampicillin/Sulbactam 1,500 MG in 0.9 % Sodium Chloride Mini Bag 100 ML IVPB SCH ×4 (06:25→23:46)
[2020-07-31] MEDS ORDERED: 0.9 % Sodium Chloride 1,000 ML IVC SCH (07:30)
[2020-07-31] MEDS: Furosemide 40 MG/4 ML VIAL IVP SCH (08:08)
[2020-07-31] MEDS: Aspirin Enteric Coated 81 MG Tablet PO SCH (08:09)
[2020-07-31] MEDS: lisinopriL 5 MG TABLET PO SCH (08:09)
[2020-07-31] MEDS: Metoprolol XL (24 HR) Succ 25 MG TAB.ER.24H PO SCH ×2 (08:09→21:58)
[2020-07-31] MEDS: allopurinoL 100 MG TABLET PO SCH (08:17)
[2020-07-31] MEDS: Insulin LISPRO 300 UNITS/3 ML VIAL SQ SCH ×4 (09:32→21:49)
[2020-07-31] MEDS: *HR* OxyCODONE Immed Rel 5 MG TABLET PO PRN (17:58)
[2020-07-31] MEDS: Insulin DETEMIR 100 UNIT/ML X5UNITS SUBQ SCH (21:49)
[2020-07-31] MEDS: QUEtiapine Fumarate 25 MG TABLET PO SCH (21:58)
[2020-08-01] MEDS: Ipratropium/Albuterol Neb 3 ML IH SCH ×7 (00:39→21:57)
[2020-08-01 04:03] LABS: Hematocrit 30.4 % (35.3-44.9); Hemoglobin 9.1 g/dL (11.5-15.4); Mean Corpuscular HGB Conc 29.9 g/dL (31.6-35.5); Mean Corpuscular Volume 86.9 fL (83.0-100.0); Mean Platelet Volume 9.2 fL (9.4-12.4); Platelet Count 296 K/mcL (140-400); Red Cell Distribution Width 15.8 % (11.5-14.5); White Blood Count 11.6 K/mcL (4.3-11.1)
[2020-08-01 04:26] LABS: Alanine Aminotransferase 6 Units/L (7-52); Albumin 2.8 g/dL (3.5-5.7); Alkaline Phosphatase 117 Units/L (34-104); Aspartate Amino Transferase 16 Units/L (13-39); BUN/Creatinine Ratio 23 (6-26); Bilirubin,Total 0.4 mg/dL (0.3-1.0); Blood Urea Nitrogen 19 mg/dL (8-23); Carbon Dioxide 29 mEq/L (23-29); Chloride 100 mEq/L (98-107); Globulin 2.9 g/dL (2.4-3.5); Glucose 127 mg/dL (70-105); Magnesium 1.8 mg/dL (1.6-2.6); Osmolality,Calculated 286 (280-300); Potassium 3.7 mEq/L (3.5-5.1); Sodium 136 mEq/L (136-145); Total Protein 5.7 g/dL (6.4-8.9); eGFR For African Americans > 60 (> 60); eGFR For Non-African Americans > 60 (> 60)
[2020-08-01] MEDS: Ampicillin/Sulbactam 1,500 MG in 0.9 % Sodium Chloride Mini Bag 100 ML IVPB SCH ×3 (04:59→16:19)
[2020-08-01] MEDS: *HR* Enoxaparin 40 MG/0.4 ML SYRINGE SQ SCH (04:59)
[2020-08-01] MEDS: Insulin LISPRO 300 UNITS/3 ML VIAL SQ SCH ×4 (08:18→20:05)
[2020-08-01] MEDS: Aspirin Enteric Coated 81 MG Tablet PO SCH (08:49)
[2020-08-01] MEDS: lisinopriL 5 MG TABLET PO SCH (08:50)
[2020-08-01] MEDS: Metoprolol XL (24 HR) Succ 25 MG TAB.ER.24H PO SCH ×2 (08:51→20:59)
[2020-08-01] MEDS: allopurinoL 100 MG TABLET PO SCH (08:51)
[2020-08-01] MEDS: *HR* OxyCODONE Immed Rel 5 MG TABLET PO PRN (10:41)
[2020-08-01] MEDS: Insulin DETEMIR 100 UNIT/ML X5UNITS SUBQ SCH (20:05)
[2020-08-01] MEDS: QUEtiapine Fumarate 25 MG TABLET PO SCH (20:58)
[2020-08-02] MEDS: Ampicillin/Sulbactam 1,500 MG in 0.9 % Sodium Chloride Mini Bag 100 ML IVPB SCH ×2 (00:52→05:44)
[2020-08-02] MEDS: Ipratropium/Albuterol Neb 3 ML IH SCH ×4 (03:48→16:31)
[2020-08-02 04:33] LABS: Hematocrit 29.7 % (35.3-44.9); Hemoglobin 8.7 g/dL (11.5-15.4); Mean Corpuscular HGB Conc 29.3 g/dL (31.6-35.5); Mean Corpuscular Hemoglobin 25.5 pg (28.0-33.3); Mean Corpuscular Volume 87.1 fL (83.0-100.0); Mean Platelet Volume 9.2 fL (9.4-12.4); Platelet Count 271 K/mcL (140-400); Red Blood Count 3.41 M/mcL (3.82-4.97); Red Cell Distribution Width 15.7 % (11.5-14.5); White Blood Count 10.7 K/mcL (4.3-11.1)
[2020-08-02 04:53] LABS: BUN/Creatinine Ratio 21 (6-26); Blood Urea Nitrogen 15 mg/dL (8-23); Calcium 8.1 mg/dL (8.6-10.3); Carbon Dioxide 29 mEq/L (23-29); Chloride 102 mEq/L (98-107); Glucose 111 mg/dL (70-105); Osmolality,Calculated 286 (280-300); Potassium 3.9 mEq/L (3.5-5.1); Sodium 137 mEq/L (136-145); eGFR For African Americans > 60 (> 60); eGFR For Non-African Americans > 60 (> 60)
[2020-08-02] MEDS: *HR* Enoxaparin 40 MG/0.4 ML SYRINGE SQ SCH (05:44)
[2020-08-02] MEDS: Acetaminophen 325 MG TABLET PO PRN (06:25)
[2020-08-02] MEDS: Insulin LISPRO 300 UNITS/3 ML VIAL SQ SCH ×2 (07:46→12:33)
[2020-08-02] MEDS: allopurinoL 100 MG TABLET PO SCH (09:46)
[2020-08-02] MEDS: lisinopriL 5 MG TABLET PO SCH (09:46)
[2020-08-02] MEDS: Aspirin Enteric Coated 81 MG Tablet PO SCH (09:46)
[2020-08-02] MEDS: Metoprolol XL (24 HR) Succ 25 MG TAB.ER.24H PO SCH (09:47)
[2020-08-02 11:21] VITALS: BP 106/56
[2020-08-02] MEDS ORDERED: Silvasorb 44.4 ML TUBE TP SCH (15:15)
== END 2020-08-02 17:20 | disposition home health service (06) | DRG 602 ==
LOC: EMEROOARM 19:24 → 3BNU 19:24 → SUATTDRO 07-27 11:55
PROVIDERS: ADMIT Internal Medicine; ATTEND Internal Medicine

== ENCOUNTER 2021-01-27 11:02 | Inpatient (IN) ==
[2021-01-27 11:39] LABS: Hematocrit 32.3 % (35.3-44.9); Hemoglobin 9.2 g/dL (11.5-15.4); Mean Corpuscular HGB Conc 28.5 g/dL (31.6-35.5); Mean Corpuscular Hemoglobin 22.8 pg (28.0-33.3); Platelet Count 244 K/mcL (140-400); Red Blood Count 4.04 M/mcL (3.82-4.97); Red Cell Distribution Width 15.3 % (11.5-14.5); White Blood Count 8.9 K/mcL (4.3-11.1)
[2021-01-27 11:57] LABS: Alanine Aminotransferase 8 Units/L (7-52); Albumin 3.5 g/dL (3.5-5.7); Albumin/Globulin Ratio 1.1 (1.1-2.2); Alkaline Phosphatase 153 Units/L (34-104); Aspartate Amino Transferase 13 Units/L (13-39); BUN/Creatinine Ratio 21 (6-26); Bilirubin,Direct 0.1 mg/dL (0.0-0.2); Bilirubin,Indirect 0.3 mg/dL (0.0-1.0); Bilirubin,Total 0.4 mg/dL (0.3-1.0); Blood Urea Nitrogen 26 mg/dL (8-23); Calcium 8.6 mg/dL (8.6-10.3); Carbon Dioxide 22 mEq/L (23-29); Chloride 107 mEq/L (98-107); Globulin 3.2 g/dL (2.4-3.5); Glucose 140 mg/dL (70-105); Osmolality,Calculated 289 (280-300); Potassium 4.6 mEq/L (3.5-5.1); Sodium 136 mEq/L (136-145); Total Protein 6.7 g/dL (6.4-8.9); eGFR For African Americans 51 (> 60); eGFR For Non-African Americans 42 (> 60)
[2021-01-27] MEDS ORDERED: Furosemide 40 MG/4 ML VIAL IVP ONE (13:21)
[2021-01-27] MEDS: Acetaminophen 325 MG TABLET PO ONE ×2 (13:34→14:07)
[2021-01-27 14:32] LABS: Bilirubin,Urine Negative (Negative); Blood,Urine Negative (Negative); Clarity,Urine Clear (Clear); Color,Urine Yellow (Yellow); Glucose,Urine (UA) Normal (Normal); Ketones,Urine Negative (Negative); Leukocyte Esterase,Urine Trace (Negative); Nitrite,Urine Negative (Negative); PH,Urine 5.5 pH Units (5.0-8.0); Protein,Urine 30 mg/dL (Neg-Trace); Specific Gravity,Urine >= 1.030 (1.010-1.025); Urobilinogen,Urine Normal (Normal)
[2021-01-27 15:40] LABS: C-Reactive Protein 25 mg/L (Less than 10)
[2021-01-27] MEDS ORDERED: Mag Hydrox/Al Hydrox/Simeth 30 ML UDC PO PRN (16:02)
[2021-01-27] MEDS ORDERED: Naloxone 0.4 MG/ML INJ IVP PRN (16:02)
[2021-01-27] MEDS ORDERED: Ondansetron ODT 4 MG TAB.RAPDIS SL PRN (16:02)
[2021-01-27] MEDS ORDERED: Acetaminophen 325 MG TABLET PO PRN (16:02)
[2021-01-27] MEDS ORDERED: Melatonin 3 MG TABLET PO PRN (16:02)
[2021-01-27] MEDS ORDERED: Perflutren Lipid Microsphere 1.3 ML in 0.9 % Sodium Chloride 8.7 ML IVP PRN (16:06)
[2021-01-27 16:15] LABS: Bacteria,Urine Few per hpf (None-Few); Squamous Epithelial Cell,Urine Few per hpf (None-Few)
[2021-01-27 16:16] LABS: Hyaline Casts,Urine Few per lpf (None Seen); RBC,Urine 0-3 per hpf (0-3)
[2021-01-27 16:36] LABS: Troponin I < 0.03 ng/mL (< 0.04)
[2021-01-27] MEDS: *HR* Heparin 5,000 UNIT/ML VIAL SQ SCH (17:40)
[2021-01-27] MEDS: Cefepime HCl 2,000 MG in Water for inj. (sterile) 20 ML IVP SCH (18:18)
[2021-01-27] MEDS: Silver Sulfadiazine 50 GM TUBE TP SCH (19:34)
[2021-01-28 01:58] LABS: Hematocrit 31.6 % (35.3-44.9); Mean Corpuscular HGB Conc 28.5 g/dL (31.6-35.5); Mean Corpuscular Hemoglobin 22.3 pg (28.0-33.3); Mean Corpuscular Volume 78.4 fL (83.0-100.0); Mean Platelet Volume 9.9 fL (9.4-12.4); Platelet Count 259 K/mcL (140-400); Red Blood Count 4.03 M/mcL (3.82-4.97); Red Cell Distribution Width 15.5 % (11.5-14.5); White Blood Count 10.7 K/mcL (4.3-11.1)
[2021-01-28 02:15] LABS: Calcium 8.5 mg/dL (8.6-10.3); Potassium 5.2 mEq/L (3.5-5.1)
[2021-01-28] MEDS: Cefepime HCl 2,000 MG in Water for inj. (sterile) 20 ML IVP SCH (05:04)
[2021-01-28] MEDS: *HR* Heparin 5,000 UNIT/ML VIAL SQ SCH ×2 (05:04→17:33)
[2021-01-28] MEDS ORDERED: Dextrose Gel 15 GM/37.5 ML TUBE PO PRN ×2 (07:38)
[2021-01-28] MEDS ORDERED: *HR* Dextrose 50 % in Water (Vial) 50 ML VIAL IVP PRN (07:38)
[2021-01-28] MEDS ORDERED: D5% in Water 1,000 ML IVC PRN (07:38)
[2021-01-28] MEDS: Aspirin Enteric Coated 81 MG Tablet PO SCH (08:43)
[2021-01-28] MEDS: Metoprolol XL (24 HR) Succ 25 MG TAB.ER.24H PO SCH ×2 (08:43→20:53)
[2021-01-28] MEDS: allopurinoL 100 MG TABLET PO SCH (08:43)
[2021-01-28] MEDS: Insulin DETEMIR 100 UNIT/ML X5UNITS SUBQ SCH ×2 (08:43→20:53)
[2021-01-28] MEDS: Silver Sulfadiazine 50 GM TUBE TP SCH ×2 (10:02→20:58)
[2021-01-28] MEDS: Insulin LISPRO 300 UNITS/3 ML VIAL SUBQ SCH ×3 (12:16→20:31)
[2021-01-28] MEDS: QUEtiapine Fumarate 25 MG TABLET PO SCH (20:53)
[2021-01-29 01:23] LABS: Hematocrit 28.8 % (35.3-44.9); Hemoglobin 8.4 g/dL (11.5-15.4); Mean Corpuscular HGB Conc 29.2 g/dL (31.6-35.5); Mean Corpuscular Hemoglobin 22.7 pg (28.0-33.3); Mean Corpuscular Volume 77.8 fL (83.0-100.0); Mean Platelet Volume 10.2 fL (9.4-12.4); Platelet Count 212 K/mcL (140-400); Red Cell Distribution Width 15.7 % (11.5-14.5); White Blood Count 7.4 K/mcL (4.3-11.1)
[2021-01-29 01:43] LABS: Calcium 8.2 mg/dL (8.6-10.3); Potassium 4.7 mEq/L (3.5-5.1)
[2021-01-29] MEDS: *HR* Heparin 5,000 UNIT/ML VIAL SQ SCH ×2 (05:26→17:39)
[2021-01-29] MEDS ORDERED: Furosemide 40 MG/4 ML VIAL IVP ONE (07:29)
[2021-01-29] MEDS: allopurinoL 100 MG TABLET PO SCH (08:31)
[2021-01-29] MEDS: Insulin LISPRO 300 UNITS/3 ML VIAL SUBQ SCH ×4 (08:31→20:39)
[2021-01-29] MEDS: Metoprolol XL (24 HR) Succ 25 MG TAB.ER.24H PO SCH ×2 (08:31→20:40)
[2021-01-29] MEDS: Aspirin Enteric Coated 81 MG Tablet PO SCH (08:31)
[2021-01-29] MEDS: Insulin DETEMIR 100 UNIT/ML X5UNITS SUBQ SCH ×2 (09:02→20:41)
[2021-01-29] MEDS: Silver Sulfadiazine 50 GM TUBE TP SCH ×2 (12:40→20:40)
[2021-01-29] MEDS: Furosemide 40 MG TABLET PO SCH (15:22)
[2021-01-29] MEDS: QUEtiapine Fumarate 25 MG TABLET PO SCH (20:40)
[2021-01-30 01:56] LABS: Red Blood Count 3.82 M/mcL (3.82-4.97)
[2021-01-30 01:58] LABS: Hematocrit 29.2 % (35.3-44.9); Hemoglobin 8.6 g/dL (11.5-15.4); Mean Corpuscular HGB Conc 29.5 g/dL (31.6-35.5); Mean Corpuscular Hemoglobin 22.5 pg (28.0-33.3); Mean Corpuscular Volume 76.4 fL (83.0-100.0); Mean Platelet Volume 10.1 fL (9.4-12.4); Platelet Count 235 K/mcL (140-400); Red Cell Distribution Width 15.6 % (11.5-14.5); White Blood Count 8.2 K/mcL (4.3-11.1)
[2021-01-30 02:23] LABS: BUN/Creatinine Ratio 26 (6-26); Blood Urea Nitrogen 28 mg/dL (8-23); Calcium 8.3 mg/dL (8.6-10.3); Carbon Dioxide 23 mEq/L (23-29); Chloride 104 mEq/L (98-107); Glucose 109 mg/dL (70-105); Osmolality,Calculated 288 (280-300); Potassium 4.2 mEq/L (3.5-5.1); Sodium 136 mEq/L (136-145); eGFR For African Americans > 60 (> 60); eGFR For Non-African Americans 50 (> 60)
[2021-01-30] MEDS: *HR* Heparin 5,000 UNIT/ML VIAL SQ SCH (04:31)
[2021-01-30] MEDS: Insulin LISPRO 300 UNITS/3 ML VIAL SUBQ SCH ×2 (07:31→11:59)
[2021-01-30] MEDS ORDERED: lisinopriL 5 MG TABLET PO SCH (09:00)
[2021-01-30] MEDS: Metoprolol XL (24 HR) Succ 25 MG TAB.ER.24H PO SCH (10:16)
[2021-01-30] MEDS: Furosemide 40 MG TABLET PO SCH (10:17)
[2021-01-30] MEDS: allopurinoL 100 MG TABLET PO SCH (10:17)
[2021-01-30] MEDS: Aspirin Enteric Coated 81 MG Tablet PO SCH (10:17)
[2021-01-30] MEDS: Insulin DETEMIR 100 UNIT/ML X5UNITS SUBQ SCH (10:18)
[2021-01-30 11:34] VITALS: BP 119/61
[2021-01-30] MEDS: Silver Sulfadiazine 50 GM TUBE TP SCH (12:00)
== END 2021-01-30 13:48 | disposition home health service (06) | DRG 682 ==
LOC: EMEROOARM 11:02 → 2ANU 11:02 → SUATTDRO 15:43 → 2ANU 16:16
PROVIDERS: ADMIT Family Medicine; ATTEND Family Medicine

== ENCOUNTER 2021-04-23 19:49 | Inpatient (IN) ==
[2021-04-23] MEDS ORDERED: Morphine Sulfate 2 MG/ML SYRINGE IVP ONE (21:49)
[2021-04-23 22:23] LABS: Hematocrit 31.1 % (35.3-44.9); Immature Granulocytes % 0.6 % (0-4)
[2021-04-23 22:24] LABS: Basophils # 0.1 K/mcL (0.0-0.2); Basophils % 0.4 %; Eosinophils # 0.7 K/mcL (0.0-0.6); Eosinophils % 5.8 %; Hemoglobin 8.7 g/dL (11.5-15.4); Mean Corpuscular Hemoglobin 21.9 pg (28.0-33.3); Mean Corpuscular Volume 78.1 fL (83.0-100.0); Mean Platelet Volume 9.2 fL (9.4-12.4); Monocytes # 1.3 K/mcL (0.0-1.3); Monocytes % 10.2 %; Neutrophils # 8.5 K/mcL (1.6-8.9); Platelet Count 335 K/mcL (140-400); Red Blood Count 3.98 M/mcL (3.82-4.97); Red Cell Distribution Width 17.5 % (11.5-14.5); White Blood Count 12.7 K/mcL (4.3-11.1)
[2021-04-23 22:41] LABS: Albumin 3.7 g/dL (3.5-5.7); Bilirubin,Direct 0.1 mg/dL (0.0-0.2); Bilirubin,Indirect 0.4 mg/dL (0.0-1.0); Bilirubin,Total 0.5 mg/dL (0.3-1.0); Calcium 8.5 mg/dL (8.6-10.3); Globulin 3.7 g/dL (2.4-3.5); Total Protein 7.4 g/dL (6.4-8.9)
[2021-04-23] MEDS ORDERED: Vancomycin 2,000 MG/520 ML IV.SOLN IVPB ONE (23:14)
[2021-04-23] MEDS ORDERED: Piperacillin/Tazobactam 3.375 GM in Water for inj. (sterile) 20 ML IVP ONE (23:15)
[2021-04-23 23:20] LABS: Anisocytosis 1+ (Not Present); Hypochromasia Present (Not Present)
[2021-04-23 23:21] LABS: Platelet Estimate Normal (Normal); Polychromasia 1+ (Not Present)
[2021-04-24] MEDS ORDERED: Albumin 25% 25gram/100mL 25 GM/100 ML IV.SOLN IVPB ONE (00:24)
[2021-04-24] MEDS ORDERED: Naloxone 0.4 MG/ML INJ IVP PRN (00:56)
[2021-04-24] MEDS ORDERED: Ondansetron 4 MG/2 ML VIAL IVP PRN (00:56)
[2021-04-24] MEDS ORDERED: Acetaminophen 325 MG TABLET PO PRN (00:56)
[2021-04-24] MEDS ORDERED: *HR* LORazepam 2 MG/ML VIAL IVP ONE (01:27)
[2021-04-24] MEDS ORDERED: Dextrose Gel 15 GM/37.5 ML TUBE PO PRN ×2 (01:30)
[2021-04-24] MEDS ORDERED: *HR* Dextrose 50 % in Water (Vial) 50 ML VIAL IVP PRN (01:30)
[2021-04-24] MEDS ORDERED: D5% in Water 1,000 ML IVC PRN (01:30)
[2021-04-24] MEDS: Insulin LISPRO 300 UNITS/3 ML VIAL SUBQ SCH ×5 (02:10→21:16)
[2021-04-24] MEDS ORDERED: Calcium Gluconate 1gm/50mL 1 GM/50 ML BAG IVPB ONE (03:31)
[2021-04-24] MEDS ORDERED: Nitroglycerin 0.4 MG TAB.SUBL SL PRN (04:21)
[2021-04-24 04:38] LABS: Bacteria,Urine Few per hpf (None-Few); Bilirubin,Urine Negative (Negative); Blood,Urine Large (Negative); Budding Yeast,Urine Few per hpf (None Seen); Clarity,Urine Turbid (Clear); Color,Urine Yellow (Yellow); Glucose,Urine (UA) Normal (Normal); Ketones,Urine Negative (Negative); Leukocyte Esterase,Urine Large (Negative); Nitrite,Urine Negative (Negative); PH,Urine 5.5 pH Units (5.0-8.0); Protein,Urine 70 mg/dL (Neg-Trace); RBC,Urine TNTC per hpf (0-3); Specific Gravity,Urine 1.026 (1.010-1.025); Squamous Epithelial Cell,Urine Few per hpf (None-Few); Urobilinogen,Urine Normal (Normal); WBC,Urine TNTC per hpf (0-3)
[2021-04-24] MEDS: *HR* Heparin 5,000 UNIT/ML VIAL SQ SCH ×3 (06:20→21:16)
[2021-04-24 07:04] LABS: Red Cell Distribution Width 17.5 % (11.5-14.5)
[2021-04-24 07:05] LABS: Hematocrit 27.1 % (35.3-44.9); Hemoglobin 7.5 g/dL (11.5-15.4); Mean Corpuscular HGB Conc 27.7 g/dL (31.6-35.5); Mean Corpuscular Hemoglobin 21.6 pg (28.0-33.3); Mean Corpuscular Volume 78.1 fL (83.0-100.0); Mean Platelet Volume 9.2 fL (9.4-12.4); Platelet Count 244 K/mcL (140-400); Red Blood Count 3.47 M/mcL (3.82-4.97); White Blood Count 10.3 K/mcL (4.3-11.1)
[2021-04-24 07:14] LABS: Calcium 8.5 mg/dL (8.6-10.3); INR 1.2; Magnesium 2.1 mg/dL (1.6-2.6); Potassium 4.8 mEq/L (3.5-5.1); Prothrombin Time 13.9 Seconds (9.4-12.1)
[2021-04-24 07:17] LABS: Activated Partial Thrombo Time 30.3 Seconds (26.0-36.0)
[2021-04-24 07:46] LABS: Folate 11.4 ng/mL (3.0-16.0)
[2021-04-24] MEDS: Aspirin Enteric Coated 81 MG Tablet PO SCH (08:51)
[2021-04-24 09:07] LABS: Ferritin 22 ng/mL (10-120); Iron < 10 mcg/dL (50-170); Thyroid Stimulating Hormone 3.737 mcIU/mL (0.340-5.600); Transferrin 231 mg/dL (203-362)
[2021-04-24 09:14] LABS: Estimated Average Glucose 137 mg/dl; Hemoglobin A1C 6.4 %
[2021-04-24] MEDS: Piperacillin/Tazobactam 3.375 GM in 0.9 % Sodium Chloride Mini Bag 100 ML IVPB SCH ×2 (09:21→15:15)
[2021-04-24 10:29] LABS: Hematocrit 27.6 % (35.3-44.9); Hemoglobin 7.7 g/dL (11.5-15.4)
[2021-04-24] MEDS ORDERED: Iron Sucrose Complex 400 MG in 0.9 % Sodium Chloride 250 ML IVPB ONE (13:30)
[2021-04-24] MEDS ORDERED: Isovue-370 500 ML BOTTLE IVP ONE (13:41)
[2021-04-24 14:11] LABS: Troponin I 0.03 ng/mL (< 0.04)
[2021-04-24] MEDS: Furosemide 20 MG TABLET PO SCH (17:24)
[2021-04-24] MEDS: Vancomycin 1,250 MG/262.5 ML IV.SOLN IVPB SCH (18:45)
[2021-04-25] MEDS: Piperacillin/Tazobactam 3.375 GM in 0.9 % Sodium Chloride Mini Bag 100 ML IVPB SCH ×3 (01:21→17:03)
[2021-04-25] MEDS ORDERED: Permethrin Cream Rinse 60 ML LIQUID TP ONE (05:11)
[2021-04-25] MEDS: *HR* Heparin 5,000 UNIT/ML VIAL SQ SCH ×3 (05:58→22:28)
[2021-04-25 07:49] LABS: Basophils % 0.5 %; Nucleated Red Blood Cells 0.2 /100 WBC (0); Red Cell Distribution Width 17.4 % (11.5-14.5)
[2021-04-25 07:50] LABS: Basophils # 0.1 K/mcL (0.0-0.2); Eosinophils # 0.5 K/mcL (0.0-0.6); Eosinophils % 5.2 %; Hematocrit 28.1 % (35.3-44.9); Lymphocytes # 2.1 K/mcL (0.6-4.6); Lymphocytes % 20.8 %; Mean Corpuscular HGB Conc 28.5 g/dL (31.6-35.5); Mean Corpuscular Hemoglobin 22.5 pg (28.0-33.3); Mean Corpuscular Volume 79.2 fL (83.0-100.0); Monocytes % 13.2 %; Platelet Count 239 K/mcL (140-400); Red Blood Count 3.55 M/mcL (3.82-4.97); Segmented Neutrophils % 59.3 %; White Blood Count 10.2 K/mcL (4.3-11.1)
[2021-04-25 07:53] LABS: Monocytes # 1.4 K/mcL (0.0-1.3); Neutrophils # 6.1 K/mcL (1.6-8.9)
[2021-04-25 08:07] LABS: Calcium 8.4 mg/dL (8.6-10.3); Potassium 5.8 mEq/L (3.5-5.1)
[2021-04-25 08:53] LABS: Hypochromasia Present (Not Present)
[2021-04-25 08:54] LABS: Ovalocytes 1+ (Not Present); Platelet Estimate Normal (Normal)
[2021-04-25] MEDS: Insulin LISPRO 300 UNITS/3 ML VIAL SUBQ SCH ×4 (10:24→23:17)
[2021-04-25] MEDS: Furosemide 20 MG TABLET PO SCH ×2 (10:34→17:39)
[2021-04-25] MEDS: Aspirin Enteric Coated 81 MG Tablet PO SCH (10:34)
[2021-04-25 16:25] LABS: RBC,Pleural Fluid < 2000 RBC/mcL
[2021-04-25 16:32] LABS: Appearance of Pleural Fl Clear (Clear)
[2021-04-25 16:36] LABS: Total Protein,Pleural Fluid 2.5 g/dL
[2021-04-25] MEDS: Vancomycin 1,250 MG/262.5 ML IV.SOLN IVPB SCH (17:05)
[2021-04-25 18:24] LABS: Basophils,Pleural Fluid 0 %
[2021-04-25] MEDS: QUEtiapine Fumarate 25 MG TABLET PO SCH (22:28)
[2021-04-25] MEDS: Metoprolol XL (24 HR) Succ 25 MG TAB.ER.24H PO SCH (22:28)
[2021-04-26] MEDS: Piperacillin/Tazobactam 3.375 GM in 0.9 % Sodium Chloride Mini Bag 100 ML IVPB SCH ×3 (00:40→17:07)
[2021-04-26] MEDS ORDERED: 0.9 % Sodium Chloride 250 ML IVC ONE ×2 (00:48→03:59)
[2021-04-26] MEDS ORDERED: Ketorolac 15 MG/ML VIAL IVP ONE (00:48)
[2021-04-26] MEDS: *HR* Heparin 5,000 UNIT/ML VIAL SQ SCH ×3 (05:25→21:47)
[2021-04-26] MEDS: Insulin LISPRO 300 UNITS/3 ML VIAL SUBQ SCH ×4 (07:46→21:47)
[2021-04-26] MEDS ORDERED: Albumin 25% 25gram/100mL 25 GM/100 ML IV.SOLN IVPB ONE (07:47)
[2021-04-26] MEDS: Aspirin Enteric Coated 81 MG Tablet PO SCH (07:55)
[2021-04-26 08:01] LABS: Hemoglobin 7.4 g/dL (11.5-15.4)
[2021-04-26 08:03] LABS: Hematocrit 28.4 % (35.3-44.9); Mean Corpuscular HGB Conc 26.1 g/dL (31.6-35.5); Mean Corpuscular Hemoglobin 21.3 pg (28.0-33.3); Mean Corpuscular Volume 81.8 fL (83.0-100.0); Mean Platelet Volume 9.5 fL (9.4-12.4); Platelet Count 214 K/mcL (140-400); Red Blood Count 3.47 M/mcL (3.82-4.97); Red Cell Distribution Width 17.6 % (11.5-14.5); White Blood Count 6.6 K/mcL (4.3-11.1)
[2021-04-26 08:21] LABS: Calcium 8.3 mg/dL (8.6-10.3); Potassium 4.8 mEq/L (3.5-5.1)
[2021-04-26] MEDS: Furosemide 20 MG TABLET PO SCH ×2 (10:35→17:07)
[2021-04-26] MEDS: Metoprolol XL (24 HR) Succ 25 MG TAB.ER.24H PO SCH ×2 (10:35→21:42)
[2021-04-26 11:56] LABS: Basophils # 0.3 K/mcL (0.0-0.2); Eosinophils # 0.3 K/mcL (0.0-0.6); Lymphocytes # 1.1 K/mcL (0.6-4.6); Monocytes # 1.3 K/mcL (0.0-1.3); Neutrophils # 3.7 K/mcL (1.6-8.9)
[2021-04-26 11:57] LABS: Anisocytosis 1+ (Not Present); Hypochromasia Present (Not Present); Platelet Estimate Normal (Normal)
[2021-04-26 11:58] LABS: Ovalocytes 1+ (Not Present); Polychromasia 1+ (Not Present)
[2021-04-26] MEDS ORDERED: Iron Sucrose Complex 200 MG in 0.9 % Sodium Chloride 100 ML IVPB ONE (13:33)
[2021-04-26] MEDS: QUEtiapine Fumarate 25 MG TABLET PO SCH (21:46)
[2021-04-27] MEDS: Piperacillin/Tazobactam 3.375 GM in 0.9 % Sodium Chloride Mini Bag 100 ML IVPB SCH ×3 (00:44→15:57)
[2021-04-27 03:14] LABS: Eosinophils % 7.1 %; Red Cell Distribution Width 17.7 % (11.5-14.5); Segmented Neutrophils % 59.9 %
[2021-04-27 03:16] LABS: Basophils % 0.5 %; Eosinophils # 0.5 K/mcL (0.0-0.6); Hematocrit 27.9 % (35.3-44.9); Hemoglobin 7.5 g/dL (11.5-15.4); Immature Granulocytes % 1.1 % (0-4); Lymphocytes # 1.3 K/mcL (0.6-4.6); Lymphocytes % 20.7 %; Mean Corpuscular HGB Conc 26.9 g/dL (31.6-35.5); Mean Corpuscular Hemoglobin 21.6 pg (28.0-33.3); Mean Corpuscular Volume 80.4 fL (83.0-100.0); Mean Platelet Volume 9.5 fL (9.4-12.4); Monocytes # 0.7 K/mcL (0.0-1.3); Monocytes % 10.7 %; Neutrophils # 3.8 K/mcL (1.6-8.9); Nucleated Red Blood Cells 0.3 /100 WBC (0); Platelet Count 221 K/mcL (140-400); Red Blood Count 3.47 M/mcL (3.82-4.97); White Blood Count 6.4 K/mcL (4.3-11.1)
[2021-04-27 03:35] LABS: Calcium 8.5 mg/dL (8.6-10.3); Potassium 4.8 mEq/L (3.5-5.1)
[2021-04-27 04:17] LABS: Hypochromasia Present (Not Present); Poikilocytosis 1+ (Not Present)
[2021-04-27 04:18] LABS: Platelet Estimate Normal (Normal)
[2021-04-27] MEDS: *HR* Heparin 5,000 UNIT/ML VIAL SQ SCH ×3 (05:18→21:11)
[2021-04-27] MEDS: Aspirin Enteric Coated 81 MG Tablet PO SCH (08:04)
[2021-04-27] MEDS: Metoprolol XL (24 HR) Succ 25 MG TAB.ER.24H PO SCH ×2 (08:04→21:11)
[2021-04-27] MEDS: Furosemide 20 MG TABLET PO SCH (08:36)
[2021-04-27] MEDS: Insulin LISPRO 300 UNITS/3 ML VIAL SUBQ SCH ×4 (08:36→21:11)
[2021-04-27 17:45] LABS: Fluid Source for Albumin PLEURAL
[2021-04-27] MEDS ORDERED: polyethylene glycoL 3350 17 GM POWD.PACK PO PRN (18:18)
[2021-04-27] MEDS ORDERED: QUEtiapine Fumarate 25 MG TABLET PO SCH (21:00)
[2021-04-28] MEDS: Piperacillin/Tazobactam 3.375 GM in 0.9 % Sodium Chloride Mini Bag 100 ML IVPB SCH ×2 (01:52→09:29)
[2021-04-28] MEDS: *HR* Heparin 5,000 UNIT/ML VIAL SQ SCH (06:08)
[2021-04-28 06:26] LABS: Mean Platelet Volume 9.5 fL (9.4-12.4)
[2021-04-28 06:28] LABS: Basophils % 0.3 %; Eosinophils # 0.3 K/mcL (0.0-0.6); Eosinophils % 2.9 %; Hematocrit 28.6 % (35.3-44.9); Hemoglobin 8.1 g/dL (11.5-15.4); Immature Granulocytes % 0.9 % (0-4); Lymphocytes # 1.1 K/mcL (0.6-4.6); Lymphocytes % 12.7 %; Mean Corpuscular HGB Conc 28.3 g/dL (31.6-35.5); Mean Corpuscular Hemoglobin 22.6 pg (28.0-33.3); Mean Corpuscular Volume 79.9 fL (83.0-100.0); Monocytes # 0.9 K/mcL (0.0-1.3); Monocytes % 9.9 %; Neutrophils # 6.3 K/mcL (1.6-8.9); Platelet Count 229 K/mcL (140-400); Red Blood Count 3.58 M/mcL (3.82-4.97); Red Cell Distribution Width 18.6 % (11.5-14.5); Segmented Neutrophils % 73.3 %; White Blood Count 8.6 K/mcL (4.3-11.1)
[2021-04-28 07:10] LABS: Potassium 4.4 mEq/L (3.5-5.1)
[2021-04-28 07:44] VITALS: O2SAT 98
[2021-04-28] MEDS ORDERED: Furosemide 20 MG TABLET PO SCH (09:00)
[2021-04-28] MEDS: Insulin LISPRO 300 UNITS/3 ML VIAL SUBQ SCH ×2 (09:16→12:35)
[2021-04-28 09:24] LABS: Hypochromasia Present (Not Present); Ovalocytes 1+ (Not Present)
[2021-04-28 09:26] LABS: Anisocytosis 2+ (Not Present)
[2021-04-28] MEDS: Metoprolol XL (24 HR) Succ 25 MG TAB.ER.24H PO SCH (09:29)
[2021-04-28] MEDS: Aspirin Enteric Coated 81 MG Tablet PO SCH (09:29)
[2021-04-28 10:40] LABS: Adenovirus Not Detected (Not Detect); Coronavirus 229E Not Detected (Not Detect); Coronavirus HKU1 Not Detected (Not Detect); Coronavirus NL63 Not Detected (Not Detect); Coronavirus OC43 Not Detected (Not Detect); Human Metapneumovirus Not Detected (Not Detect); Human Rhinovirus/Enterovirus Not Detected (Not Detect); Influenza A Subtype 2009 H1 Not Detected (Not Detect); Influenza B Not Detected (Not Detect); Parainfluenza Virus 1 Not Detected (Not Detect); Parainfluenza Virus 2 Not Detected (Not Detect); SARS-CoV-2 Not Detected (Not Detect)
[2021-04-28 10:41] LABS: Bordetella Pertussis Not Detected (Not Detect); Chlamydophila pneumoniae Not Detected (Not Detect); Mycoplasma pneumoniae Not Detected (Not Detect); Parainfluenza Virus 3 Not Detected (Not Detect); Parainfluenza Virus 4 Not Detected (Not Detect); Respiratory Syncytial Virus Not Detected (Not Detect)
[2021-04-28 12:09] VITALS: BP 110/69; PULSE 85; TEMP 98.1
== END 2021-04-28 13:01 | DRG 637 ==
LOC: EMEROOARM 19:49 → 3ANU 19:49 → SUATTDRO 23:32 → 3ANU 04-24 00:31
PROVIDERS: ADMIT Student in an Organized Health Care Education/Training Program; ATTEND Family Medicine

== ENCOUNTER 2021-05-04 18:26 | Inpatient (IN) ==
[2021-05-04 20:42] LABS: Amphetamine Screen,Urine Negative ng/mL (Cutoff=1000); Barbiturate Screen,Urine Negative ng/mL (Cutoff=200); Benzodiazepines Screen,Urine Negative ng/mL (Cutoff=200); Cannabinoid Screen,Urine Negative ng/mL (Cutoff = 50); Cocaine Screen,Urine Negative ng/mL (Cutoff= 300); Opiate Screen,Urine Negative ng/mL (Cutoff=300); Phencyclidine Screen,Urine Negative ng/mL (Cutoff=25)
[2021-05-04 20:58] LABS: Bacteria,Urine Few per hpf (None-Few); Bilirubin,Urine Negative (Negative); Blood,Urine Moderate (Negative); Clarity,Urine Turbid (Clear); Color,Urine Light-Yellow (Yellow); Glucose,Urine (UA) Normal (Normal); Hyaline Casts,Urine Many per lpf (None Seen); Ketones,Urine Negative (Negative); Leukocyte Esterase,Urine Large (Negative); Mucus,Urine Few per lpf (None-Few); Nitrite,Urine Negative (Negative); PH,Urine 5.5 pH Units (5.0-8.0); Protein,Urine Trace mg/dL (Neg-Trace); RBC,Urine 50-100 per hpf (0-3); Renal Epithelial Cells,Urine Few per hpf (None-Few); Specific Gravity,Urine 1.013 (1.010-1.025); Squamous Epithelial Cell,Urine Few per hpf (None-Few); Transitional Epi Cells,Urine Few per hpf (None-Few); Urobilinogen,Urine Normal (Normal); WBC,Urine 50-100 per hpf (0-3)
[2021-05-04 21:04] LABS: Eosinophils % 7.3 %
[2021-05-04 21:06] LABS: Basophils % 0.4 %; Eosinophils # 0.5 K/mcL (0.0-0.6); Hematocrit 36.4 % (35.3-44.9); Hemoglobin 9.8 g/dL (11.5-15.4); Immature Granulocytes % 0.8 % (0-4); Lymphocytes # 1.4 K/mcL (0.6-4.6); Mean Corpuscular HGB Conc 26.9 g/dL (31.6-35.5); Mean Corpuscular Hemoglobin 22.8 pg (28.0-33.3); Mean Corpuscular Volume 84.8 fL (83.0-100.0); Monocytes # 0.7 K/mcL (0.0-1.3); Monocytes % 9.8 %; Neutrophils # 4.6 K/mcL (1.6-8.9); Platelet Count 198 K/mcL (140-400); Red Blood Count 4.29 M/mcL (3.82-4.97); Red Cell Distribution Width 21.7 % (11.5-14.5); Segmented Neutrophils % 62.7 %; White Blood Count 7.3 K/mcL (4.3-11.1)
[2021-05-04 21:08] LABS: VBG HCO3 32 mEq/L (21-27); VBG PCO2 69 mmHg (41-51); VBG PH 7.28 pH Units (7.32-7.42); VBG PO2 32 mmHg (25-50)
[2021-05-04 21:13] LABS: INR 1.1; Prothrombin Time 12.8 Seconds (9.4-12.1)
[2021-05-04 21:16] LABS: Activated Partial Thrombo Time 32.6 Seconds (26.0-36.0)
[2021-05-04 21:24] LABS: Anisocytosis 2+ (Not Present)
[2021-05-04 21:25] LABS: Hypochromasia Present (Not Present); Platelet Estimate Normal (Normal)
[2021-05-04 21:26] LABS: Ovalocytes 1+ (Not Present)
[2021-05-04 21:42] LABS: Alanine Aminotransferase 9 Units/L (7-52); Albumin 3.5 g/dL (3.5-5.7); Alkaline Phosphatase 92 Units/L (34-104); Aspartate Amino Transferase 15 Units/L (13-39); BUN/Creatinine Ratio 23 (6-26); Bilirubin,Direct 0.2 mg/dL (0.0-0.2); Bilirubin,Indirect 0.4 mg/dL (0.0-1.0); Bilirubin,Total 0.6 mg/dL (0.3-1.0); Blood Urea Nitrogen 23 mg/dL (8-23); Calcium 8.7 mg/dL (8.6-10.3); Carbon Dioxide 32 mEq/L (23-29); Chloride 105 mEq/L (98-107); Creatine Kinase 42 Units/L (30-223); Ethanol < 10 mg/dL (Less than 10); Globulin 3.5 g/dL (2.4-3.5); Glucose 133 mg/dL (70-105); Osmolality,Calculated 302 (280-300); Potassium 4.5 mEq/L (3.5-5.1); Sodium 143 mEq/L (136-145); Troponin I < 0.03 ng/mL (< 0.04); eGFR For African Americans > 60 (> 60); eGFR For Non-African Americans 53 (> 60)
[2021-05-05] MEDS ORDERED: Furosemide 80 MG in 0.9 % Sodium Chloride 50 ML IVPB ONE (01:30)
[2021-05-05] MEDS ORDERED: D5% in Water 1,000 ML IVC PRN (03:28)
[2021-05-05] MEDS ORDERED: Dextrose Gel 15 GM/37.5 ML TUBE PO PRN ×2 (03:28)
[2021-05-05] MEDS ORDERED: Acetaminophen 325 MG TABLET PO PRN (03:28)
[2021-05-05] MEDS ORDERED: *HR* Dextrose 50 % in Water (Syg) 50 ML SYRINGE IVP PRN (03:28)
[2021-05-05] MEDS ORDERED: Naloxone 0.4 MG/ML INJ IVP PRN (03:28)
[2021-05-05] MEDS ORDERED: Ondansetron 4 MG/2 ML VIAL IVP PRN (03:28)
[2021-05-05 03:48] LABS: Influenza A PCR Negative (Negative); Influenza B PCR Negative (Negative); Resp. Syncytial Virus PCR Negative (Negative)
[2021-05-05 03:52] LABS: SARS-CoV-2 by PCR (In House) Negative (Negative)
[2021-05-05 04:30] LABS: ABG Base Excess 4 mEq/L (-2 to 3); ABG HCO3 29 mEq/L (21-27); ABG Oxygen Saturation 94 % (95-98); ABG PCO2 47 mmHg (35-45); ABG PO2 70 mmHg (85-104); ABG TCO2 30 mEq/L (20-26)
[2021-05-05 06:06] LABS: Hematocrit 32.6 % (35.3-44.9); Hemoglobin 9.1 g/dL (11.5-15.4); Mean Corpuscular HGB Conc 27.9 g/dL (31.6-35.5); Mean Corpuscular Hemoglobin 23.3 pg (28.0-33.3); Mean Corpuscular Volume 83.4 fL (83.0-100.0); Mean Platelet Volume 9.9 fL (9.4-12.4); Platelet Count 179 K/mcL (140-400); Red Blood Count 3.91 M/mcL (3.82-4.97); Red Cell Distribution Width 21.6 % (11.5-14.5); White Blood Count 6.8 K/mcL (4.3-11.1)
[2021-05-05 06:49] LABS: Folate 9.5 ng/mL (3.0-16.0)
[2021-05-05] MEDS: Insulin LISPRO 300 UNITS/3 ML VIAL SUBQ SCH ×4 (07:34→20:33)
[2021-05-05] MEDS: Aspirin Enteric Coated 81 MG Tablet PO SCH (08:08)
[2021-05-05 10:08] LABS: % Iron Saturation 15 % (15-50); BUN/Creatinine Ratio 24 (6-26); Blood Urea Nitrogen 22 mg/dL (8-23); Calcium 8.6 mg/dL (8.6-10.3); Carbon Dioxide 28 mEq/L (23-29); Chloride 106 mEq/L (98-107); Ferritin 94 ng/mL (10-120); Glucose 114 mg/dL (70-105); Iron 42 mcg/dL (50-170); Magnesium 1.8 mg/dL (1.6-2.6); Osmolality,Calculated 296 (280-300); Potassium 4.1 mEq/L (3.5-5.1); Sodium 141 mEq/L (136-145); Transferrin 201 mg/dL (203-362); eGFR For African Americans > 60 (> 60); eGFR For Non-African Americans 60 (> 60)
[2021-05-05] MEDS: Furosemide 40 MG/4 ML VIAL IVP SCH ×2 (13:31→20:32)
[2021-05-05] MEDS ORDERED: Permethrin Cream Rinse 60 ML LIQUID TP ONE (14:32)
[2021-05-05] MEDS: QUEtiapine Fumarate 25 MG TABLET PO SCH (20:31)
[2021-05-05] MEDS: Doxycycline 100 MG CAPSULE PO SCH (20:32)
[2021-05-06 01:30] LABS: Hemoglobin 9.1 g/dL (11.5-15.4)
[2021-05-06 01:32] LABS: Mean Corpuscular HGB Conc 27.6 g/dL (31.6-35.5); Mean Corpuscular Hemoglobin 22.9 pg (28.0-33.3); Mean Corpuscular Volume 83.1 fL (83.0-100.0); Mean Platelet Volume 10.2 fL (9.4-12.4); Platelet Count 162 K/mcL (140-400); Red Blood Count 3.97 M/mcL (3.82-4.97); Red Cell Distribution Width 21.7 % (11.5-14.5); White Blood Count 6.9 K/mcL (4.3-11.1)
[2021-05-06 01:44] LABS: BUN/Creatinine Ratio 21 (6-26); Blood Urea Nitrogen 18 mg/dL (8-23); Calcium 8.4 mg/dL (8.6-10.3); Carbon Dioxide 30 mEq/L (23-29); Chloride 103 mEq/L (98-107); Glucose 108 mg/dL (70-105); Osmolality,Calculated 294 (280-300); Potassium 4.3 mEq/L (3.5-5.1); Sodium 141 mEq/L (136-145); eGFR For African Americans > 60 (> 60); eGFR For Non-African Americans > 60 (> 60)
[2021-05-06] MEDS: Aspirin Enteric Coated 81 MG Tablet PO SCH (07:59)
[2021-05-06] MEDS: Doxycycline 100 MG CAPSULE PO SCH ×2 (07:59→19:58)
[2021-05-06] MEDS: Furosemide 40 MG/4 ML VIAL IVP SCH ×2 (07:59→19:58)
[2021-05-06] MEDS: Insulin LISPRO 300 UNITS/3 ML VIAL SUBQ SCH ×4 (09:32→23:54)
[2021-05-06] MEDS ORDERED: Perflutren Lipid Microsphere 1.3 ML in 0.9 % Sodium Chloride 8.7 ML IVP PRN (11:42)
[2021-05-06] MEDS ORDERED: Haloperidol Lactate 5 MG/ML VIAL IVP ONE (19:48)
[2021-05-06] MEDS: QUEtiapine Fumarate 25 MG TABLET PO SCH (19:57)
[2021-05-07 02:52] LABS: Hematocrit 32.4 % (35.3-44.9); Mean Corpuscular HGB Conc 27.8 g/dL (31.6-35.5); Mean Corpuscular Volume 82.9 fL (83.0-100.0); Mean Platelet Volume 9.9 fL (9.4-12.4); Platelet Count 177 K/mcL (140-400); Red Blood Count 3.91 M/mcL (3.82-4.97); Red Cell Distribution Width 21.9 % (11.5-14.5); White Blood Count 8.4 K/mcL (4.3-11.1)
[2021-05-07 03:02] LABS: BUN/Creatinine Ratio 25 (6-26); Blood Urea Nitrogen 22 mg/dL (8-23); Calcium 8.3 mg/dL (8.6-10.3); Carbon Dioxide 31 mEq/L (23-29); Chloride 100 mEq/L (98-107); Glucose 118 mg/dL (70-105); Osmolality,Calculated 290 (280-300); Sodium 138 mEq/L (136-145); eGFR For African Americans > 60 (> 60); eGFR For Non-African Americans > 60 (> 60)
[2021-05-07] MEDS: Aspirin Enteric Coated 81 MG Tablet PO SCH (08:05)
[2021-05-07] MEDS: Doxycycline 100 MG CAPSULE PO SCH ×2 (08:05→19:46)
[2021-05-07] MEDS: Furosemide 40 MG/4 ML VIAL IVP SCH ×2 (08:05→19:47)
[2021-05-07] MEDS: Insulin LISPRO 300 UNITS/3 ML VIAL SUBQ SCH ×4 (08:05→19:41)
[2021-05-07] MEDS: Sacubitril/Valsartan 24/26 MG 1 TABLET PO SCH (17:18)
[2021-05-07] MEDS: QUEtiapine Fumarate 25 MG TABLET PO SCH (19:47)
[2021-05-08 01:37] LABS: Hematocrit 31.3 % (35.3-44.9); Hemoglobin 8.9 g/dL (11.5-15.4); Mean Corpuscular HGB Conc 28.4 g/dL (31.6-35.5); Mean Corpuscular Hemoglobin 23.7 pg (28.0-33.3); Mean Corpuscular Volume 83.2 fL (83.0-100.0); Mean Platelet Volume 9.9 fL (9.4-12.4); Platelet Count 167 K/mcL (140-400); Red Blood Count 3.76 M/mcL (3.82-4.97); Red Cell Distribution Width 21.6 % (11.5-14.5); White Blood Count 7.6 K/mcL (4.3-11.1)
[2021-05-08 01:56] LABS: BUN/Creatinine Ratio 27 (6-26); Blood Urea Nitrogen 24 mg/dL (8-23); Carbon Dioxide 35 mEq/L (23-29); Chloride 97 mEq/L (98-107); Glucose 103 mg/dL (70-105); Osmolality,Calculated 292 (280-300); Potassium 3.8 mEq/L (3.5-5.1); Sodium 139 mEq/L (136-145); eGFR For African Americans > 60 (> 60); eGFR For Non-African Americans > 60 (> 60)
[2021-05-08] MEDS: Sacubitril/Valsartan 24/26 MG 1 TABLET PO SCH ×2 (05:55→17:14)
[2021-05-08] MEDS: Insulin LISPRO 300 UNITS/3 ML VIAL SUBQ SCH ×4 (08:16→21:20)
[2021-05-08] MEDS: Doxycycline 100 MG CAPSULE PO SCH (11:58)
[2021-05-08] MEDS: Furosemide 40 MG TABLET PO SCH ×2 (11:58→21:20)
[2021-05-08] MEDS: Aspirin Enteric Coated 81 MG Tablet PO SCH (12:01)
[2021-05-08 14:44] LABS: Lactate Dehydrogenase 161 Units/L (140-271); Total Protein 5.7 g/dL (6.4-8.9)
[2021-05-08 15:13] LABS: RBC,Pleural Fluid 3000 RBC/mcL
[2021-05-08 15:48] LABS: Total Protein,Pleural Fluid 2.5 g/dL
[2021-05-08 15:59] LABS: Appearance of Pleural Fl Clear (Clear); Basophils,Pleural Fluid 0 %
[2021-05-08] MEDS: QUEtiapine Fumarate 25 MG TABLET PO SCH (21:20)
[2021-05-09 04:59] LABS: Mean Corpuscular Volume 83.4 fL (83.0-100.0); Platelet Count 170 K/mcL (140-400)
[2021-05-09 05:00] LABS: Hematocrit 39.1 % (35.3-44.9); Hemoglobin 10.7 g/dL (11.5-15.4); Mean Corpuscular HGB Conc 27.4 g/dL (31.6-35.5); Mean Corpuscular Hemoglobin 22.8 pg (28.0-33.3); Mean Platelet Volume 10.1 fL (9.4-12.4); Red Blood Count 4.69 M/mcL (3.82-4.97); Red Cell Distribution Width 21.9 % (11.5-14.5); White Blood Count 7.2 K/mcL (4.3-11.1)
[2021-05-09 05:10] LABS: BUN/Creatinine Ratio 27 (6-26); Blood Urea Nitrogen 22 mg/dL (8-23); Calcium 8.3 mg/dL (8.6-10.3); Carbon Dioxide 35 mEq/L (23-29); Chloride 98 mEq/L (98-107); Glucose 95 mg/dL (70-105); Osmolality,Calculated 291 (280-300); Sodium 139 mEq/L (136-145); eGFR For African Americans > 60 (> 60); eGFR For Non-African Americans > 60 (> 60)
[2021-05-09] MEDS: Sacubitril/Valsartan 24/26 MG 1 TABLET PO SCH ×2 (05:20→17:07)
[2021-05-09] MEDS: Furosemide 40 MG TABLET PO SCH ×2 (08:19→20:32)
[2021-05-09] MEDS: Aspirin Enteric Coated 81 MG Tablet PO SCH (08:19)
[2021-05-09] MEDS: Insulin LISPRO 300 UNITS/3 ML VIAL SUBQ SCH ×4 (08:19→20:32)
[2021-05-09] MEDS: QUEtiapine Fumarate 25 MG TABLET PO SCH (20:32)
[2021-05-10 02:14] LABS: Hematocrit 34.5 % (35.3-44.9); Mean Corpuscular Hemoglobin 24.1 pg (28.0-33.3); Mean Corpuscular Volume 83.1 fL (83.0-100.0); Mean Platelet Volume 10.1 fL (9.4-12.4); Platelet Count 179 K/mcL (140-400); Red Blood Count 4.15 M/mcL (3.82-4.97); Red Cell Distribution Width 21.5 % (11.5-14.5); White Blood Count 6.5 K/mcL (4.3-11.1)
[2021-05-10 02:25] LABS: BUN/Creatinine Ratio 26 (6-26); Blood Urea Nitrogen 20 mg/dL (8-23); Calcium 8.2 mg/dL (8.6-10.3); Carbon Dioxide 33 mEq/L (23-29); Chloride 98 mEq/L (98-107); Glucose 100 mg/dL (70-105); Osmolality,Calculated 289 (280-300); Potassium 3.9 mEq/L (3.5-5.1); Sodium 138 mEq/L (136-145); eGFR For African Americans > 60 (> 60); eGFR For Non-African Americans > 60 (> 60)
[2021-05-10] MEDS: Sacubitril/Valsartan 24/26 MG 1 TABLET PO SCH ×2 (05:50→16:40)
[2021-05-10] MEDS: Insulin LISPRO 300 UNITS/3 ML VIAL SUBQ SCH ×3 (08:53→16:34)
[2021-05-10] MEDS: Furosemide 40 MG TABLET PO SCH (09:15)
[2021-05-10] MEDS: Aspirin Enteric Coated 81 MG Tablet PO SCH (09:15)
[2021-05-10 10:45] VITALS: BP 107/67; PULSE 93; TEMP 97.8; O2SAT 94
[2021-05-10 13:57] LABS: Adenovirus Not Detected (Not Detect); Bordetella Pertussis Not Detected (Not Detect); Chlamydophila pneumoniae Not Detected (Not Detect); Coronavirus 229E Not Detected (Not Detect); Coronavirus HKU1 Not Detected (Not Detect); Coronavirus NL63 Not Detected (Not Detect); Coronavirus OC43 Not Detected (Not Detect); Human Metapneumovirus Not Detected (Not Detect); Human Rhinovirus/Enterovirus Not Detected (Not Detect); Influenza A Subtype 2009 H1 Not Detected (Not Detect); Influenza B Not Detected (Not Detect); Mycoplasma pneumoniae Not Detected (Not Detect); Parainfluenza Virus 1 Not Detected (Not Detect); Parainfluenza Virus 2 Not Detected (Not Detect); Parainfluenza Virus 3 Not Detected (Not Detect); Parainfluenza Virus 4 Not Detected (Not Detect); Respiratory Syncytial Virus Not Detected (Not Detect); SARS-CoV-2 Not Detected (Not Detect)
[2021-05-11 02:53] LABS: Fluid Source for Cholesterol PLEURAL FLUID
[2021-05-11 09:10] LABS: Fluid Source for Triglycerides PLEURAL FLUID
[2021-05-11 15:54] LABS: Cholesterol,Body Fluid 27 mg/dL; Triglycerides,Body Fluid 22 mg/dL
== END 2021-05-10 18:45 | DRG 291 ==
LOC: EMEROOARM 18:26 → 3BNU 18:26 → SUATTDRO 05-06 09:58
PROVIDERS: ADMIT Student in an Organized Health Care Education/Training Program; ATTEND Registered Nurse

== ENCOUNTER 2021-07-28 13:18 | Inpatient (IN) ==
[2021-07-28] MEDS ORDERED: 0.9 % Sodium Chloride 1,000 ML IVC ONE (13:29)
[2021-07-28] MEDS ORDERED: Ondansetron 4 MG/2 ML VIAL IVP ONE (14:06)
[2021-07-28 14:36] LABS: Basophils # 0.1 K/mcL (0.0-0.2); Basophils % 0.5 %; Eosinophils # 0.4 K/mcL (0.0-0.6); Eosinophils % 2.6 %; Hemoglobin 11.5 g/dL (11.5-15.4); Immature Granulocytes % 2.1 % (0-4); Lymphocytes # 2.2 K/mcL (0.6-4.6); Lymphocytes % 15.8 %; Mean Corpuscular HGB Conc 31.9 g/dL (31.6-35.5); Mean Corpuscular Hemoglobin 27.2 pg (28.0-33.3); Mean Corpuscular Volume 85.1 fL (83.0-100.0); Mean Platelet Volume 9.3 fL (9.4-12.4); Monocytes # 0.7 K/mcL (0.0-1.3); Monocytes % 4.9 %; Neutrophils # 10.4 K/mcL (1.6-8.9); Platelet Count 218 K/mcL (140-400); Red Blood Count 4.23 M/mcL (3.82-4.97); Red Cell Distribution Width 15.7 % (11.5-14.5); Segmented Neutrophils % 74.1 %
[2021-07-28 14:43] LABS: INR 1.1; Prothrombin Time 11.8 Seconds (9.4-12.1)
[2021-07-28 14:46] LABS: Activated Partial Thrombo Time 34.1 Seconds (26.0-36.0)
[2021-07-28 15:24] LABS: BUN/Creatinine Ratio 24 (6-26); Blood Urea Nitrogen 30 mg/dL (8-23); Calcium 8.7 mg/dL (8.6-10.3); Carbon Dioxide 20 mEq/L (23-29); Chloride 98 mEq/L (98-107); Glucose 172 mg/dL (70-105); Magnesium 1.7 mg/dL (1.6-2.6); Osmolality,Calculated 294 (280-300); Potassium 3.5 mEq/L (3.5-5.1); Sodium 137 mEq/L (136-145); Troponin I < 0.03 ng/mL (< 0.04); eGFR For African Americans 51 (> 60); eGFR For Non-African Americans 42 (> 60)
[2021-07-28 15:28] LABS: Thyroid Stimulating Hormone 10.547 mcIU/mL (0.340-5.600)
[2021-07-28 15:34] LABS: Influenza A PCR Negative (Negative); Influenza B PCR Negative (Negative); Resp. Syncytial Virus PCR Negative (Negative)
[2021-07-28 15:35] LABS: SARS-CoV-2 by PCR (In House) Negative (Negative)
[2021-07-28 16:11] LABS: Bacteria,Urine Few per hpf (None-Few); Bilirubin,Urine Negative (Negative); Blood,Urine Trace (Negative); Clarity,Urine Ex.Turbid (Clear); Color,Urine Yellow (Yellow); Glucose,Urine (UA) Normal (Normal); Granular Casts,Urine Few per lpf (None Seen); Hyaline Casts,Urine Many per lpf (None Seen); Ketones,Urine Negative (Negative); Leukocyte Esterase,Urine Large (Negative); Mucus,Urine Few per lpf (None-Few); Nitrite,Urine Negative (Negative); Protein,Urine 30 mg/dL (Neg-Trace); Specific Gravity,Urine 1.015 (1.010-1.025); Squamous Epithelial Cell,Urine Few per hpf (None-Few); Transitional Epi Cells,Urine Few per hpf (None-Few); Urobilinogen,Urine Normal (Normal); WBC,Urine TNTC per hpf (0-3)
[2021-07-28] MEDS ORDERED: Ondansetron 4 MG/2 ML VIAL IVP PRN (16:15)
[2021-07-28] MEDS ORDERED: Naloxone 0.4 MG/ML INJ IVP PRN (16:16)
[2021-07-28] MEDS ORDERED: *HR* LORazepam 2 MG/ML VIAL IVP ONE (16:21)
[2021-07-28] MEDS ORDERED: Amiodarone Premix 150 MG/100 ML BAG IVPB ONE (16:44)
[2021-07-28] MEDS ORDERED: Acetaminophen 650 MG RECTAL SUPP RC PRN (17:56)
[2021-07-28] MEDS ORDERED: D5% in Water 1,000 ML IVC PRN (17:56)
[2021-07-28] MEDS ORDERED: *HR* Dextrose 50 % in Water (Syg) 50 ML SYRINGE IVP PRN (17:56)
[2021-07-28] MEDS ORDERED: Dextrose Gel 15 GM/37.5 ML TUBE PO PRN ×2 (17:56)
[2021-07-28] MEDS ORDERED: Amiodarone Premix 360 MG/200 ML BAG IVC ONE (19:00)
[2021-07-28] MEDS ORDERED: Magnesium Sulfate 1 GM/102 ML PIGGYBACK IVPB ONE (23:26)
[2021-07-28] MEDS: Melatonin 3 MG TABLET PO SCH (23:53)
[2021-07-28] MEDS: Insulin LISPRO 300 UNITS/3 ML VIAL SUBQ SCH (23:54)
[2021-07-28] MEDS: Cefdinir 300 MG CAPSULE PO SCH (23:58)
[2021-07-29] MEDS: Amiodarone Premix 360 MG/200 ML BAG IVC SCH ×2 (03:02→13:50)
[2021-07-29] MEDS: Insulin LISPRO 300 UNITS/3 ML VIAL SUBQ SCH ×4 (07:18→20:28)
[2021-07-29] MEDS ORDERED: Perflutren Lipid Microsphere 1.3 ML in 0.9 % Sodium Chloride 8.7 ML IVP PRN (08:40)
[2021-07-29] MEDS: Sacubitril/Valsartan 24/26 MG 1 TABLET PO SCH (08:41)
[2021-07-29] MEDS: Aspirin Enteric Coated 81 MG Tablet PO SCH (08:41)
[2021-07-29] MEDS: QUEtiapine Fumarate 100 MG TABLET PO SCH (08:42)
[2021-07-29] MEDS: Cefdinir 300 MG CAPSULE PO SCH ×2 (08:55→20:35)
[2021-07-29 11:29] LABS: White Blood Count 10.3 K/mcL (4.3-11.1)
[2021-07-29 11:30] LABS: Basophils # 0.1 K/mcL (0.0-0.2); Basophils % 0.5 %; Eosinophils # 0.4 K/mcL (0.0-0.6); Eosinophils % 3.8 %; Hematocrit 32.4 % (35.3-44.9); Hemoglobin 10.2 g/dL (11.5-15.4); Immature Granulocytes % 1.5 % (0-4); Lymphocytes # 2.7 K/mcL (0.6-4.6); Lymphocytes % 26.3 %; Mean Corpuscular HGB Conc 31.5 g/dL (31.6-35.5); Mean Corpuscular Hemoglobin 26.9 pg (28.0-33.3); Mean Corpuscular Volume 85.5 fL (83.0-100.0); Mean Platelet Volume 9.4 fL (9.4-12.4); Monocytes # 0.8 K/mcL (0.0-1.3); Monocytes % 7.6 %; Neutrophils # 6.2 K/mcL (1.6-8.9); Platelet Count 202 K/mcL (140-400); Red Blood Count 3.79 M/mcL (3.82-4.97); Segmented Neutrophils % 60.3 %
[2021-07-29 11:55] LABS: Calcium 8.6 mg/dL (8.6-10.3); Potassium 3.3 mEq/L (3.5-5.1)
[2021-07-29 16:49] LABS: Adenovirus F 40/41 PCR Not detected (Not detect); Astrovirus PCR Not detected (Not detect); Campylobacter by PCR Not detected (Not detect); Cryptosporidium by PCR Not detected (Not detect); Cyclospora cayetanensis PCR Not detected (Not detect); E. coli O157 by PCR Not detected (Not detect); Entamoeba histolytica PCR Not detected (Not detect); Enteroaggregative E.coli(EAEC) Not detected (Not detect); Enteropathogenic E.coli(EPEC) Not detected (Not detect); Enterotoxigenic E.coli (ETEC) Not detected (Not detect); Giardia lamblia PCR Not detected (Not detect); Norovirus GI/GII PCR Not detected (Not detect); Plesiomonas shigelloides PCR Not detected (Not detect); Rotavirus A PCR Not detected (Not detect); Salmonella PCR Not detected (Not detect); Sapovirus PCR Not detected (Not detect); Shig/EnteroinvasiveE coli EIEC Not detected (Not detect); Shigalike tox-prod E coli STEC Not detected (Not detect); Vibrio PCR Not detected (Not detect); Vibrio cholerae PCR Not detected (Not detect); Yersinia enterocolitica PCR Not detected (Not detect)
[2021-07-29 16:54] LABS: C.difficile Toxin A/B Gene PCR DETECTED (Not detect)
[2021-07-29] MEDS: Vancomycin Oral Soln 125 MG/2.5 ML UDC PO SCH ×2 (18:15→20:35)
[2021-07-29] MEDS: Melatonin 3 MG TABLET PO SCH (20:35)
[2021-07-29] MEDS: Metoprolol XL (24 HR) Succ 25 MG TAB.ER.24H PO SCH (22:04)
[2021-07-30 04:20] LABS: Basophils # 0.1 K/mcL (0.0-0.2); Basophils % 0.6 %; Eosinophils # 0.9 K/mcL (0.0-0.6); Hematocrit 30.4 % (35.3-44.9); Hemoglobin 9.7 g/dL (11.5-15.4); Lymphocytes # 3.2 K/mcL (0.6-4.6); Lymphocytes % 29.1 %; Mean Corpuscular HGB Conc 31.9 g/dL (31.6-35.5); Mean Corpuscular Hemoglobin 27.4 pg (28.0-33.3); Mean Corpuscular Volume 85.9 fL (83.0-100.0); Mean Platelet Volume 9.5 fL (9.4-12.4); Monocytes % 9.4 %; Neutrophils # 5.6 K/mcL (1.6-8.9); Platelet Count 176 K/mcL (140-400); Red Blood Count 3.54 M/mcL (3.82-4.97); Segmented Neutrophils % 51.9 %; White Blood Count 10.8 K/mcL (4.3-11.1)
[2021-07-30] MEDS: Cefdinir 300 MG CAPSULE PO SCH ×2 (08:24→20:46)
[2021-07-30] MEDS: Vancomycin Oral Soln 125 MG/2.5 ML UDC PO SCH ×4 (08:24→20:46)
[2021-07-30] MEDS: Aspirin Enteric Coated 81 MG Tablet PO SCH (08:24)
[2021-07-30] MEDS: Insulin LISPRO 300 UNITS/3 ML VIAL SUBQ SCH ×4 (08:24→19:45)
[2021-07-30] MEDS: QUEtiapine Fumarate 100 MG TABLET PO SCH (08:25)
[2021-07-30] MEDS: Sacubitril/Valsartan 24/26 MG 1 TABLET PO SCH (08:25)
[2021-07-30] MEDS: Metoprolol XL (24 HR) Succ 25 MG TAB.ER.24H PO SCH ×4 (08:29→19:42)
[2021-07-30] MEDS ORDERED: 0.9 % Sodium Chloride 250 ML IVC SCH (10:30)
[2021-07-30] MEDS: Melatonin 3 MG TABLET PO SCH (20:45)
[2021-07-31 05:08] LABS: Basophils % 0.5 %; Eosinophils # 0.7 K/mcL (0.0-0.6); Eosinophils % 7.7 %; Hematocrit 30.9 % (35.3-44.9); Hemoglobin 9.6 g/dL (11.5-15.4); Immature Granulocytes % 0.7 % (0-4); Lymphocytes # 2.6 K/mcL (0.6-4.6); Lymphocytes % 31.2 %; Mean Corpuscular HGB Conc 31.1 g/dL (31.6-35.5); Mean Corpuscular Hemoglobin 26.7 pg (28.0-33.3); Mean Corpuscular Volume 86.1 fL (83.0-100.0); Mean Platelet Volume 9.3 fL (9.4-12.4); Monocytes # 0.7 K/mcL (0.0-1.3); Monocytes % 7.7 %; Neutrophils # 4.4 K/mcL (1.6-8.9); Platelet Count 152 K/mcL (140-400); Red Blood Count 3.59 M/mcL (3.82-4.97); Segmented Neutrophils % 52.2 %; White Blood Count 8.4 K/mcL (4.3-11.1)
[2021-07-31 05:24] LABS: Calcium 8.2 mg/dL (8.6-10.3); Potassium 4.2 mEq/L (3.5-5.1)
[2021-07-31] MEDS: QUEtiapine Fumarate 100 MG TABLET PO SCH (07:38)
[2021-07-31] MEDS: Insulin LISPRO 300 UNITS/3 ML VIAL SUBQ SCH ×4 (07:39→21:38)
[2021-07-31] MEDS: Cefdinir 300 MG CAPSULE PO SCH (07:39)
[2021-07-31] MEDS: Aspirin Enteric Coated 81 MG Tablet PO SCH (07:39)
[2021-07-31] MEDS: Metoprolol XL (24 HR) Succ 25 MG TAB.ER.24H PO SCH ×2 (07:40→21:39)
[2021-07-31] MEDS: Vancomycin Oral Soln 125 MG/2.5 ML UDC PO SCH ×4 (07:49→22:10)
[2021-07-31] MEDS ORDERED: *HR* LORazepam 2 MG/ML VIAL IVP PRN (08:04)
[2021-07-31] MEDS ORDERED: Permethrin Cream Rinse 60 ML LIQUID TP ONE (14:13)
[2021-07-31] MEDS ORDERED: 0.9 % Sodium Chloride 250 ML IV ONE (17:00)
[2021-07-31] MEDS ORDERED: 0.9 % Sodium Chloride 250 ML IVC SCH (17:00)
[2021-07-31] MEDS: *HR* Heparin 5,000 UNIT/ML VIAL SQ SCH (17:11)
[2021-07-31] MEDS: Melatonin 3 MG TABLET PO SCH (22:10)
[2021-08-01 05:12] LABS: Basophils # 0.1 K/mcL (0.0-0.2); Basophils % 0.5 %; Eosinophils # 0.8 K/mcL (0.0-0.6); Eosinophils % 8.4 %; Hematocrit 30.4 % (35.3-44.9); Hemoglobin 9.9 g/dL (11.5-15.4); Immature Granulocytes % 0.7 % (0-4); Lymphocytes # 2.5 K/mcL (0.6-4.6); Lymphocytes % 26.2 %; Mean Corpuscular HGB Conc 32.6 g/dL (31.6-35.5); Mean Corpuscular Volume 86.1 fL (83.0-100.0); Mean Platelet Volume 9.7 fL (9.4-12.4); Monocytes # 0.8 K/mcL (0.0-1.3); Monocytes % 7.9 %; Neutrophils # 5.4 K/mcL (1.6-8.9); Platelet Count 167 K/mcL (140-400); Red Blood Count 3.53 M/mcL (3.82-4.97); Red Cell Distribution Width 16.2 % (11.5-14.5); Segmented Neutrophils % 56.3 %; White Blood Count 9.6 K/mcL (4.3-11.1)
[2021-08-01 05:20] LABS: BUN/Creatinine Ratio 26 (6-26); Blood Urea Nitrogen 25 mg/dL (8-23); Calcium 8.2 mg/dL (8.6-10.3); Carbon Dioxide 25 mEq/L (23-29); Chloride 104 mEq/L (98-107); Glucose 100 mg/dL (70-105); Osmolality,Calculated 286 (280-300); Potassium 4.3 mEq/L (3.5-5.1); Sodium 136 mEq/L (136-145); eGFR For African Americans > 60 (> 60); eGFR For Non-African Americans 57 (> 60)
[2021-08-01] MEDS: *HR* Heparin 5,000 UNIT/ML VIAL SQ SCH ×2 (05:21→16:37)
[2021-08-01] MEDS: Insulin LISPRO 300 UNITS/3 ML VIAL SUBQ SCH ×4 (07:58→20:57)
[2021-08-01] MEDS: Aspirin Enteric Coated 81 MG Tablet PO SCH (08:03)
[2021-08-01] MEDS: Vancomycin Oral Soln 125 MG/2.5 ML UDC PO SCH ×4 (08:03→20:56)
[2021-08-01] MEDS: Metoprolol XL (24 HR) Succ 25 MG TAB.ER.24H PO SCH ×2 (08:04→20:57)
[2021-08-01] MEDS: Sacubitril/Valsartan 24/26 MG 1 TABLET PO SCH (11:30)
[2021-08-01] MEDS: QUEtiapine Fumarate 25 MG TABLET PO SCH ×3 (11:31→20:56)
[2021-08-01] MEDS: Melatonin 3 MG TABLET PO SCH (20:57)
[2021-08-01] MEDS ORDERED: QUEtiapine Fumarate 100 MG TABLET PO SCH (21:00)
[2021-08-02] MEDS ORDERED: 0.9 % Sodium Chloride 1,000 ML IV ONE (00:03)
[2021-08-02] MEDS ORDERED: 0.9 % Sodium Chloride 1,000 ML ONE (00:05)
[2021-08-02 00:49] LABS: Basophils # 0.1 K/mcL (0.0-0.2); Basophils % 0.5 %; Eosinophils # 0.6 K/mcL (0.0-0.6); Eosinophils % 6.1 %; Hematocrit 30.8 % (35.3-44.9); Hemoglobin 9.9 g/dL (11.5-15.4); Immature Granulocytes % 0.7 % (0-4); Lymphocytes # 2.8 K/mcL (0.6-4.6); Lymphocytes % 28.6 %; Mean Corpuscular HGB Conc 32.1 g/dL (31.6-35.5); Mean Corpuscular Hemoglobin 27.8 pg (28.0-33.3); Mean Corpuscular Volume 86.5 fL (83.0-100.0); Mean Platelet Volume 9.5 fL (9.4-12.4); Monocytes # 0.7 K/mcL (0.0-1.3); Monocytes % 7.2 %; Neutrophils # 5.6 K/mcL (1.6-8.9); Platelet Count 150 K/mcL (140-400); Red Blood Count 3.56 M/mcL (3.82-4.97); Red Cell Distribution Width 16.2 % (11.5-14.5); Segmented Neutrophils % 56.9 %; White Blood Count 9.8 K/mcL (4.3-11.1)
[2021-08-02 01:08] LABS: BUN/Creatinine Ratio 22 (6-26); Blood Urea Nitrogen 21 mg/dL (8-23); Calcium 8.3 mg/dL (8.6-10.3); Carbon Dioxide 28 mEq/L (23-29); Chloride 102 mEq/L (98-107); Glucose 83 mg/dL (70-105); Osmolality,Calculated 276 (280-300); Potassium 4.1 mEq/L (3.5-5.1); Sodium 132 mEq/L (136-145); eGFR For African Americans > 60 (> 60); eGFR For Non-African Americans 58 (> 60)
[2021-08-02 04:23] LABS: BUN/Creatinine Ratio 22 (6-26); Blood Urea Nitrogen 20 mg/dL (8-23); Calcium 8.2 mg/dL (8.6-10.3); Carbon Dioxide 28 mEq/L (23-29); Chloride 103 mEq/L (98-107); Glucose 89 mg/dL (70-105); Magnesium 1.8 mg/dL (1.6-2.6); Osmolality,Calculated 278 (280-300); Phosphorous 3.6 mg/dL (2.7-4.5); Sodium 133 mEq/L (136-145); eGFR For African Americans > 60 (> 60); eGFR For Non-African Americans > 60 (> 60)
[2021-08-02] MEDS: *HR* Heparin 5,000 UNIT/ML VIAL SQ SCH ×2 (05:33→17:07)
[2021-08-02] MEDS: Aspirin Enteric Coated 81 MG Tablet PO SCH (07:42)
[2021-08-02] MEDS: Vancomycin Oral Soln 125 MG/2.5 ML UDC PO SCH ×4 (07:42→20:46)
[2021-08-02] MEDS: Insulin LISPRO 300 UNITS/3 ML VIAL SUBQ SCH ×4 (07:42→20:47)
[2021-08-02] MEDS: QUEtiapine Fumarate 25 MG TABLET PO SCH ×2 (07:43→20:46)
[2021-08-02] MEDS: Metoprolol XL (24 HR) Succ 25 MG TAB.ER.24H PO SCH ×2 (07:43→17:08)
[2021-08-02] MEDS: Sacubitril/Valsartan 24/26 MG 1 TABLET PO SCH (07:44)
[2021-08-02] MEDS ORDERED: Haloperidol Lactate 5 MG/ML VIAL IVP PRN (07:49)
[2021-08-02] MEDS ORDERED: Haloperidol Lactate 5 MG/ML VIAL IM PRN (07:50)
[2021-08-02] MEDS: Melatonin 3 MG TABLET PO SCH (20:46)
[2021-08-03] MEDS: *HR* Heparin 5,000 UNIT/ML VIAL SQ SCH ×2 (05:17→17:18)
[2021-08-03] MEDS: Insulin LISPRO 300 UNITS/3 ML VIAL SUBQ SCH ×4 (08:22→21:02)
[2021-08-03] MEDS: QUEtiapine Fumarate 25 MG TABLET PO SCH ×2 (08:23→21:02)
[2021-08-03] MEDS: Vancomycin Oral Soln 125 MG/2.5 ML UDC PO SCH ×4 (08:24→21:01)
[2021-08-03] MEDS: Metoprolol XL (24 HR) Succ 25 MG TAB.ER.24H PO SCH (08:24)
[2021-08-03] MEDS: Aspirin Enteric Coated 81 MG Tablet PO SCH (08:24)
[2021-08-03 09:26] LABS: Basophils % 0.6 %; Eosinophils # 0.4 K/mcL (0.0-0.6); Eosinophils % 5.9 %; Hematocrit 33.3 % (35.3-44.9); Hemoglobin 10.1 g/dL (11.5-15.4); Immature Granulocytes % 0.4 % (0-4); Lymphocytes # 2.3 K/mcL (0.6-4.6); Mean Corpuscular HGB Conc 30.3 g/dL (31.6-35.5); Mean Corpuscular Hemoglobin 27.3 pg (28.0-33.3); Mean Platelet Volume 9.6 fL (9.4-12.4); Monocytes # 0.7 K/mcL (0.0-1.3); Monocytes % 9.2 %; Neutrophils # 3.7 K/mcL (1.6-8.9); Platelet Count 150 K/mcL (140-400); Red Cell Distribution Width 16.4 % (11.5-14.5); Segmented Neutrophils % 51.9 %; White Blood Count 7.1 K/mcL (4.3-11.1)
[2021-08-03 09:47] LABS: BUN/Creatinine Ratio 20 (6-26); Blood Urea Nitrogen 16 mg/dL (8-23); Calcium 8.5 mg/dL (8.6-10.3); Carbon Dioxide 23 mEq/L (23-29); Chloride 105 mEq/L (98-107); Glucose 80 mg/dL (70-105); Osmolality,Calculated 280 (280-300); Sodium 135 mEq/L (136-145); eGFR For African Americans > 60 (> 60); eGFR For Non-African Americans > 60 (> 60)
[2021-08-03] MEDS ORDERED: Furosemide 20 MG TABLET PO ONE (10:54)
[2021-08-03] MEDS: Melatonin 3 MG TABLET PO SCH (21:02)
[2021-08-04] MEDS: *HR* Heparin 5,000 UNIT/ML VIAL SQ SCH ×2 (05:21→16:39)
[2021-08-04 06:30] LABS: BUN/Creatinine Ratio 25 (6-26); Blood Urea Nitrogen 20 mg/dL (8-23); Calcium 8.4 mg/dL (8.6-10.3); Carbon Dioxide 26 mEq/L (23-29); Chloride 105 mEq/L (98-107); Glucose 89 mg/dL (70-105); Osmolality,Calculated 286 (280-300); Potassium 4.6 mEq/L (3.5-5.1); Sodium 137 mEq/L (136-145); eGFR For African Americans > 60 (> 60); eGFR For Non-African Americans > 60 (> 60)
[2021-08-04] MEDS: Furosemide 20 MG TABLET PO SCH (08:41)
[2021-08-04] MEDS: Insulin LISPRO 300 UNITS/3 ML VIAL SUBQ SCH ×4 (08:41→20:09)
[2021-08-04] MEDS: Vancomycin Oral Soln 125 MG/2.5 ML UDC PO SCH ×4 (08:41→20:08)
[2021-08-04] MEDS: Aspirin Enteric Coated 81 MG Tablet PO SCH (08:42)
[2021-08-04] MEDS: QUEtiapine Fumarate 25 MG TABLET PO SCH ×2 (08:42→20:08)
[2021-08-04] MEDS: Metoprolol XL (24 HR) Succ 25 MG TAB.ER.24H PO SCH (08:43)
[2021-08-04 09:35] LABS: Basophils % 0.4 %; Eosinophils # 0.5 K/mcL (0.0-0.6); Eosinophils % 5.4 %; Hematocrit 30.7 % (35.3-44.9); Immature Granulocytes % 0.9 % (0-4); Lymphocytes # 2.3 K/mcL (0.6-4.6); Lymphocytes % 24.4 %; Mean Corpuscular HGB Conc 31.9 g/dL (31.6-35.5); Mean Corpuscular Hemoglobin 27.6 pg (28.0-33.3); Mean Corpuscular Volume 86.5 fL (83.0-100.0); Mean Platelet Volume 9.9 fL (9.4-12.4); Monocytes # 1.1 K/mcL (0.0-1.3); Monocytes % 11.7 %; Neutrophils # 5.4 K/mcL (1.6-8.9); Nucleated Red Blood Cells 0.2 /100 WBC (0); Platelet Count 153 K/mcL (140-400); Red Blood Count 3.55 M/mcL (3.82-4.97); Red Cell Distribution Width 16.4 % (11.5-14.5); Segmented Neutrophils % 57.2 %; White Blood Count 9.5 K/mcL (4.3-11.1)
[2021-08-04 09:40] LABS: Hemoglobin 9.8 g/dL (11.5-15.4)
[2021-08-04] MEDS: Melatonin 3 MG TABLET PO SCH (20:08)
[2021-08-05 03:05] LABS: Basophils # 0.1 K/mcL (0.0-0.2); Basophils % 0.7 %; Eosinophils # 0.6 K/mcL (0.0-0.6); Eosinophils % 8.5 %; Hematocrit 31.6 % (35.3-44.9); Hemoglobin 9.5 g/dL (11.5-15.4); Immature Granulocytes % 0.4 % (0-4); Lymphocytes # 2.4 K/mcL (0.6-4.6); Mean Corpuscular HGB Conc 30.1 g/dL (31.6-35.5); Mean Corpuscular Hemoglobin 26.8 pg (28.0-33.3); Mean Corpuscular Volume 89.3 fL (83.0-100.0); Monocytes # 0.8 K/mcL (0.0-1.3); Monocytes % 11.3 %; Neutrophils # 3.1 K/mcL (1.6-8.9); Platelet Count 168 K/mcL (140-400); Red Blood Count 3.54 M/mcL (3.82-4.97); Red Cell Distribution Width 16.5 % (11.5-14.5); Segmented Neutrophils % 45.1 %; White Blood Count 6.9 K/mcL (4.3-11.1)
[2021-08-05 03:25] LABS: BUN/Creatinine Ratio 22 (6-26); Blood Urea Nitrogen 18 mg/dL (8-23); Calcium 8.2 mg/dL (8.6-10.3); Carbon Dioxide 26 mEq/L (23-29); Chloride 103 mEq/L (98-107); Glucose 77 mg/dL (70-105); Osmolality,Calculated 283 (280-300); Potassium 4.3 mEq/L (3.5-5.1); Sodium 136 mEq/L (136-145); eGFR For African Americans > 60 (> 60); eGFR For Non-African Americans > 60 (> 60)
[2021-08-05] MEDS: *HR* Heparin 5,000 UNIT/ML VIAL SQ SCH ×2 (06:16→17:42)
[2021-08-05] MEDS: Insulin LISPRO 300 UNITS/3 ML VIAL SUBQ SCH ×4 (09:32→20:37)
[2021-08-05] MEDS: Metoprolol XL (24 HR) Succ 25 MG TAB.ER.24H PO SCH (09:38)
[2021-08-05] MEDS: Aspirin Enteric Coated 81 MG Tablet PO SCH (09:39)
[2021-08-05] MEDS: Furosemide 20 MG TABLET PO SCH (09:39)
[2021-08-05] MEDS: QUEtiapine Fumarate 25 MG TABLET PO SCH ×2 (09:39→20:16)
[2021-08-05] MEDS: Vancomycin Oral Soln 125 MG/2.5 ML UDC PO SCH ×4 (09:40→20:16)
[2021-08-05] MEDS: Melatonin 3 MG TABLET PO SCH (20:15)
[2021-08-06] MEDS: *HR* Heparin 5,000 UNIT/ML VIAL SQ SCH ×2 (06:07→17:18)
[2021-08-06] MEDS: Insulin LISPRO 300 UNITS/3 ML VIAL SUBQ SCH ×4 (08:42→20:02)
[2021-08-06] MEDS: Furosemide 20 MG TABLET PO SCH (09:03)
[2021-08-06] MEDS: Vancomycin Oral Soln 125 MG/2.5 ML UDC PO SCH ×4 (09:03→20:15)
[2021-08-06] MEDS: Aspirin Enteric Coated 81 MG Tablet PO SCH (09:03)
[2021-08-06] MEDS: Metoprolol XL (24 HR) Succ 25 MG TAB.ER.24H PO SCH (09:04)
[2021-08-06] MEDS: QUEtiapine Fumarate 25 MG TABLET PO SCH ×2 (09:04→20:23)
[2021-08-06] MEDS: Melatonin 3 MG TABLET PO SCH (20:15)
[2021-08-07] MEDS: *HR* Heparin 5,000 UNIT/ML VIAL SQ SCH ×2 (06:00→16:57)
[2021-08-07] MEDS: Insulin LISPRO 300 UNITS/3 ML VIAL SUBQ SCH ×4 (07:22→20:35)
[2021-08-07] MEDS: Vancomycin Oral Soln 125 MG/2.5 ML UDC PO SCH ×4 (08:12→20:42)
[2021-08-07] MEDS: QUEtiapine Fumarate 25 MG TABLET PO SCH ×2 (08:13→20:43)
[2021-08-07] MEDS: Metoprolol XL (24 HR) Succ 25 MG TAB.ER.24H PO SCH (08:13)
[2021-08-07] MEDS: Aspirin Enteric Coated 81 MG Tablet PO SCH (08:13)
[2021-08-07] MEDS: Furosemide 20 MG TABLET PO SCH (08:13)
[2021-08-07] MEDS: Melatonin 3 MG TABLET PO SCH (20:43)
[2021-08-08] MEDS: *HR* Heparin 5,000 UNIT/ML VIAL SQ SCH ×2 (05:17→16:51)
[2021-08-08] MEDS: Insulin LISPRO 300 UNITS/3 ML VIAL SUBQ SCH ×4 (07:48→19:44)
[2021-08-08] MEDS: Vancomycin Oral Soln 125 MG/2.5 ML UDC PO SCH ×2 (07:49→12:05)
[2021-08-08] MEDS: Metoprolol XL (24 HR) Succ 25 MG TAB.ER.24H PO SCH (07:49)
[2021-08-08] MEDS: QUEtiapine Fumarate 25 MG TABLET PO SCH ×2 (07:49→19:56)
[2021-08-08] MEDS: Furosemide 20 MG TABLET PO SCH (07:50)
[2021-08-08] MEDS: Aspirin Enteric Coated 81 MG Tablet PO SCH (07:50)
[2021-08-08] MEDS: Melatonin 3 MG TABLET PO SCH (19:55)
[2021-08-09] MEDS: *HR* Heparin 5,000 UNIT/ML VIAL SQ SCH ×2 (05:38→17:45)
[2021-08-09] MEDS: Aspirin Enteric Coated 81 MG Tablet PO SCH (08:34)
[2021-08-09] MEDS: QUEtiapine Fumarate 25 MG TABLET PO SCH ×2 (08:34→20:32)
[2021-08-09] MEDS: Insulin LISPRO 300 UNITS/3 ML VIAL SUBQ SCH ×4 (08:35→20:14)
[2021-08-09] MEDS: Metoprolol XL (24 HR) Succ 25 MG TAB.ER.24H PO SCH (12:17)
[2021-08-09] MEDS: Furosemide 20 MG TABLET PO SCH (12:18)
[2021-08-09] MEDS: Melatonin 3 MG TABLET PO SCH (20:32)
[2021-08-10] MEDS: *HR* Heparin 5,000 UNIT/ML VIAL SQ SCH ×2 (05:21→18:52)
[2021-08-10] MEDS: Insulin LISPRO 300 UNITS/3 ML VIAL SUBQ SCH ×4 (07:12→22:34)
[2021-08-10] MEDS: Aspirin Enteric Coated 81 MG Tablet PO SCH (08:53)
[2021-08-10] MEDS: Metoprolol XL (24 HR) Succ 25 MG TAB.ER.24H PO SCH (08:54)
[2021-08-10] MEDS: QUEtiapine Fumarate 25 MG TABLET PO SCH ×2 (08:55→21:27)
[2021-08-10] MEDS: Furosemide 20 MG TABLET PO SCH (08:55)
[2021-08-10] MEDS ORDERED: Permethrin Cream Rinse 60 ML LIQUID TP ONE (17:48)
[2021-08-10] MEDS: Melatonin 3 MG TABLET PO SCH (21:27)
[2021-08-11] MEDS: *HR* Heparin 5,000 UNIT/ML VIAL SQ SCH ×2 (05:17→18:35)
[2021-08-11] MEDS: Insulin LISPRO 300 UNITS/3 ML VIAL SUBQ SCH ×4 (07:31→20:07)
[2021-08-11] MEDS: Metoprolol XL (24 HR) Succ 25 MG TAB.ER.24H PO SCH (07:43)
[2021-08-11] MEDS: Aspirin Enteric Coated 81 MG Tablet PO SCH (07:43)
[2021-08-11] MEDS: QUEtiapine Fumarate 25 MG TABLET PO SCH ×2 (07:43→20:20)
[2021-08-11] MEDS: Furosemide 20 MG TABLET PO SCH (07:43)
[2021-08-11] MEDS: Melatonin 3 MG TABLET PO SCH (20:20)
[2021-08-12] MEDS: *HR* Heparin 5,000 UNIT/ML VIAL SQ SCH ×2 (04:58→16:23)
[2021-08-12] MEDS: Insulin LISPRO 300 UNITS/3 ML VIAL SUBQ SCH ×4 (07:24→19:37)
[2021-08-12] MEDS: Metoprolol XL (24 HR) Succ 25 MG TAB.ER.24H PO SCH (10:20)
[2021-08-12] MEDS: Aspirin Enteric Coated 81 MG Tablet PO SCH (10:20)
[2021-08-12] MEDS: Furosemide 20 MG TABLET PO SCH (10:20)
[2021-08-12] MEDS: QUEtiapine Fumarate 25 MG TABLET PO SCH ×2 (10:25→21:26)
[2021-08-12] MEDS: Melatonin 3 MG TABLET PO SCH (21:26)
[2021-08-13] MEDS: Melatonin 3 MG TABLET PO SCH ×2 (01:57→20:04)
[2021-08-13] MEDS: *HR* Heparin 5,000 UNIT/ML VIAL SQ SCH ×2 (05:46→19:16)
[2021-08-13] MEDS: Insulin LISPRO 300 UNITS/3 ML VIAL SUBQ SCH ×4 (08:08→20:04)
[2021-08-13] MEDS: Metoprolol XL (24 HR) Succ 25 MG TAB.ER.24H PO SCH (08:17)
[2021-08-13] MEDS: Aspirin Enteric Coated 81 MG Tablet PO SCH (08:17)
[2021-08-13] MEDS: Furosemide 20 MG TABLET PO SCH (08:18)
[2021-08-13] MEDS: QUEtiapine Fumarate 25 MG TABLET PO SCH ×2 (08:22→20:04)
[2021-08-13] MEDS ORDERED: Albumin 25% 25gram/100mL 25 GM/100 ML IV.SOLN IVPB ONE (22:16)
[2021-08-14] MEDS: *HR* Heparin 5,000 UNIT/ML VIAL SQ SCH ×2 (06:09→17:30)
[2021-08-14] MEDS: Insulin LISPRO 300 UNITS/3 ML VIAL SUBQ SCH ×4 (08:09→20:16)
[2021-08-14] MEDS: Metoprolol XL (24 HR) Succ 25 MG TAB.ER.24H PO SCH (08:16)
[2021-08-14] MEDS: QUEtiapine Fumarate 25 MG TABLET PO SCH ×2 (08:16→20:05)
[2021-08-14] MEDS: Aspirin Enteric Coated 81 MG Tablet PO SCH (08:17)
[2021-08-14] MEDS: Furosemide 20 MG TABLET PO SCH (08:17)
[2021-08-14 17:56] LABS: BUN/Creatinine Ratio 31 (6-26); Blood Urea Nitrogen 24 mg/dL (8-23); Calcium 8.3 mg/dL (8.6-10.3); Carbon Dioxide 31 mEq/L (23-29); Chloride 97 mEq/L (98-107); Glucose 142 mg/dL (70-105); Osmolality,Calculated 284 (280-300); Potassium 4.3 mEq/L (3.5-5.1); Sodium 134 mEq/L (136-145); eGFR For African Americans > 60 (> 60); eGFR For Non-African Americans > 60 (> 60)
[2021-08-14] MEDS: Melatonin 3 MG TABLET PO SCH (20:04)
[2021-08-15] MEDS: *HR* Heparin 5,000 UNIT/ML VIAL SQ SCH ×2 (05:44→17:18)
[2021-08-15] MEDS: Aspirin Enteric Coated 81 MG Tablet PO SCH (08:34)
[2021-08-15] MEDS: QUEtiapine Fumarate 25 MG TABLET PO SCH ×2 (08:34→19:32)
[2021-08-15] MEDS: Furosemide 20 MG TABLET PO SCH (08:34)
[2021-08-15] MEDS: Metoprolol XL (24 HR) Succ 25 MG TAB.ER.24H PO SCH (08:34)
[2021-08-15] MEDS: Insulin LISPRO 300 UNITS/3 ML VIAL SUBQ SCH ×4 (08:40→20:19)
[2021-08-15] MEDS: Melatonin 3 MG TABLET PO SCH (19:32)
[2021-08-16] MEDS: *HR* Heparin 5,000 UNIT/ML VIAL SQ SCH ×2 (05:22→18:13)
[2021-08-16] MEDS: Aspirin Enteric Coated 81 MG Tablet PO SCH (08:00)
[2021-08-16] MEDS: QUEtiapine Fumarate 25 MG TABLET PO SCH ×2 (08:01→20:59)
[2021-08-16] MEDS: Metoprolol XL (24 HR) Succ 25 MG TAB.ER.24H PO SCH (08:01)
[2021-08-16] MEDS: Furosemide 20 MG TABLET PO SCH (08:01)
[2021-08-16] MEDS: Insulin LISPRO 300 UNITS/3 ML VIAL SUBQ SCH ×4 (08:10→21:00)
[2021-08-16 17:02] LABS: INR 1.1; Prothrombin Time 12.2 Seconds (9.4-12.1)
[2021-08-16] MEDS: Melatonin 3 MG TABLET PO SCH (20:59)
[2021-08-17 01:21] LABS: Thyroid Stimulating Hormone 5.809 mcIU/mL (0.340-5.600)
[2021-08-17] MEDS: *HR* Heparin 5,000 UNIT/ML VIAL SQ SCH ×2 (05:31→18:41)
[2021-08-17] MEDS: Insulin LISPRO 300 UNITS/3 ML VIAL SUBQ SCH ×4 (08:20→21:35)
[2021-08-17] MEDS: QUEtiapine Fumarate 25 MG TABLET PO SCH ×2 (08:31→19:59)
[2021-08-17] MEDS: Aspirin Enteric Coated 81 MG Tablet PO SCH (08:31)
[2021-08-17] MEDS: Furosemide 20 MG TABLET PO SCH (08:31)
[2021-08-17] MEDS: Metoprolol XL (24 HR) Succ 25 MG TAB.ER.24H PO SCH (08:32)
[2021-08-17 11:32] LABS: Estimated Average Glucose 85 mg/dl; Hemoglobin A1C 4.6 %
[2021-08-17] MEDS ORDERED: Permethrin Cream Rinse 60 ML LIQUID TP ONE (12:30)
[2021-08-17] MEDS: Melatonin 3 MG TABLET PO SCH (20:00)
[2021-08-17] MEDS ORDERED: Ketorolac 30 MG/ML VIAL IVP ONE (22:15)
[2021-08-18] MEDS: *HR* Heparin 5,000 UNIT/ML VIAL SQ SCH ×2 (05:12→18:02)
[2021-08-18] MEDS: Insulin LISPRO 300 UNITS/3 ML VIAL SUBQ SCH ×4 (08:56→20:27)
[2021-08-18] MEDS: QUEtiapine Fumarate 25 MG TABLET PO SCH ×2 (09:59→20:25)
[2021-08-18] MEDS: Aspirin Enteric Coated 81 MG Tablet PO SCH (09:59)
[2021-08-18] MEDS: Furosemide 20 MG TABLET PO SCH (10:00)
[2021-08-18] MEDS: Metoprolol XL (24 HR) Succ 25 MG TAB.ER.24H PO SCH (10:03)
[2021-08-18] MEDS: Melatonin 3 MG TABLET PO SCH (20:25)
[2021-08-19] MEDS: *HR* Heparin 5,000 UNIT/ML VIAL SQ SCH ×2 (05:37→17:51)
[2021-08-19] MEDS: Furosemide 20 MG TABLET PO SCH (10:46)
[2021-08-19] MEDS: QUEtiapine Fumarate 25 MG TABLET PO SCH ×4 (10:46→21:12)
[2021-08-19] MEDS: Aspirin Enteric Coated 81 MG Tablet PO SCH (10:46)
[2021-08-19] MEDS: Metoprolol XL (24 HR) Succ 25 MG TAB.ER.24H PO SCH (10:47)
[2021-08-19] MEDS: Insulin LISPRO 300 UNITS/3 ML VIAL SUBQ SCH ×4 (10:48→21:06)
[2021-08-19] MEDS: Melatonin 3 MG TABLET PO SCH (21:12)
[2021-08-20 03:44] LABS: Hematocrit 25.7 % (35.3-44.9); Hemoglobin 7.9 g/dL (11.5-15.4); Mean Corpuscular HGB Conc 30.7 g/dL (31.6-35.5); Mean Corpuscular Hemoglobin 27.2 pg (28.0-33.3); Mean Corpuscular Volume 88.6 fL (83.0-100.0); Mean Platelet Volume 9.3 fL (9.4-12.4); Platelet Count 308 K/mcL (140-400); Red Cell Distribution Width 15.7 % (11.5-14.5); White Blood Count 9.6 K/mcL (4.3-11.1)
[2021-08-20 04:05] LABS: BUN/Creatinine Ratio 34 (6-26); Blood Urea Nitrogen 30 mg/dL (8-23); Calcium 8.5 mg/dL (8.6-10.3); Carbon Dioxide 27 mEq/L (23-29); Chloride 96 mEq/L (98-107); Glucose 119 mg/dL (70-105); Osmolality,Calculated 281 (280-300); Potassium 4.3 mEq/L (3.5-5.1); Sodium 132 mEq/L (136-145); eGFR For African Americans > 60 (> 60); eGFR For Non-African Americans > 60 (> 60)
[2021-08-20] MEDS: *HR* Heparin 5,000 UNIT/ML VIAL SQ SCH ×2 (05:39→17:37)
[2021-08-20] MEDS: Metoprolol XL (24 HR) Succ 25 MG TAB.ER.24H PO SCH (09:00)
[2021-08-20] MEDS: QUEtiapine Fumarate 25 MG TABLET PO SCH ×2 (09:00→20:59)
[2021-08-20] MEDS: Furosemide 20 MG TABLET PO SCH (09:01)
[2021-08-20] MEDS: Insulin LISPRO 300 UNITS/3 ML VIAL SUBQ SCH ×4 (09:01→22:34)
[2021-08-20] MEDS: Aspirin Enteric Coated 81 MG Tablet PO SCH (09:01)
[2021-08-20] MEDS ORDERED: Acetaminophen 325 MG TABLET PO PRN (10:21)
[2021-08-20] MEDS: Melatonin 3 MG TABLET PO SCH (20:58)
[2021-08-21] MEDS: *HR* Heparin 5,000 UNIT/ML VIAL SQ SCH ×2 (05:48→18:16)
[2021-08-21] MEDS: Aspirin Enteric Coated 81 MG Tablet PO SCH (08:39)
[2021-08-21] MEDS: QUEtiapine Fumarate 25 MG TABLET PO SCH ×2 (08:40→20:22)
[2021-08-21] MEDS: Metoprolol XL (24 HR) Succ 25 MG TAB.ER.24H PO SCH (08:40)
[2021-08-21] MEDS: Furosemide 20 MG TABLET PO SCH (08:40)
[2021-08-21] MEDS: Insulin LISPRO 300 UNITS/3 ML VIAL SUBQ SCH ×4 (09:02→20:24)
[2021-08-21] MEDS: Melatonin 3 MG TABLET PO SCH (20:21)
[2021-08-22] MEDS: *HR* Heparin 5,000 UNIT/ML VIAL SQ SCH (06:28)
[2021-08-22] MEDS: Aspirin Enteric Coated 81 MG Tablet PO SCH (08:44)
[2021-08-22] MEDS: Furosemide 20 MG TABLET PO SCH (08:44)
[2021-08-22] MEDS: Insulin LISPRO 300 UNITS/3 ML VIAL SUBQ SCH ×2 (08:44→12:53)
[2021-08-22] MEDS: QUEtiapine Fumarate 25 MG TABLET PO SCH (08:44)
[2021-08-22] MEDS: Metoprolol XL (24 HR) Succ 25 MG TAB.ER.24H PO SCH (08:45)
[2021-08-22 10:26] VITALS: BP 100/53; PULSE 81; TEMP 98.1; O2SAT 100
[2021-08-22 12:42] LABS: Hematocrit 28.3 % (35.3-44.9); Hemoglobin 8.6 g/dL (11.5-15.4)
[2021-08-22 13:52] LABS: Adenovirus Not Detected (Not Detect); Bordetella Pertussis Not Detected (Not Detect); Chlamydophila pneumoniae Not Detected (Not Detect); Coronavirus 229E Not Detected (Not Detect); Coronavirus HKU1 Not Detected (Not Detect); Coronavirus NL63 Not Detected (Not Detect); Coronavirus OC43 Not Detected (Not Detect); Human Metapneumovirus Not Detected (Not Detect); Human Rhinovirus/Enterovirus Not Detected (Not Detect); Influenza A Subtype 2009 H1 Not Detected (Not Detect); Influenza B Not Detected (Not Detect); Mycoplasma pneumoniae Not Detected (Not Detect); Parainfluenza Virus 1 Not Detected (Not Detect); Parainfluenza Virus 2 Not Detected (Not Detect); Parainfluenza Virus 3 Not Detected (Not Detect); Parainfluenza Virus 4 Not Detected (Not Detect); Respiratory Syncytial Virus Not Detected (Not Detect); SARS-CoV-2 Not Detected (Not Detect)
[2021-08-22] MEDS ORDERED: Moderna Covid-19 Vaccine 100MCG/0.5mL IM ONE (15:23)
== END 2021-08-22 16:41 | DRG 308 ==
LOC: 3NENU 13:18 → EMEROOARM 13:18 → 2NNU 13:18 → SUATTDRO 20:47 → 2NNU 22:30 → 2NENU 07-31 06:52 → SUATTDRO 07-31 07:59 → 3ANU 08-14 19:02
PROVIDERS: ADMIT Internal Medicine; ATTEND Registered Nurse

== ENCOUNTER 2021-09-26 08:19 | Inpatient (IN) ==
[~2021-09-26 08:19] MED LIST: ceFAZolin 1,000 MG, Sodium Chloride IRRigation 1,000 ML IR ONE
[2021-09-26] MEDS ORDERED: CeFAZolin Syr 2,000MG/20 ML 2,000 MG/20 ML SYRINGE IVPB ONE (09:09)
[2021-09-26] MEDS ORDERED: Ringers Solution, Lactated 1,000 ML IVC SCH (09:15)
[2021-09-26] MEDS ORDERED: *HR* OxyCODONE Immed Rel 5 MG TABLET PO ONE (11:32)
[2021-09-26] MEDS ORDERED: Ondansetron 4 MG/2 ML VIAL IVP PRN ×5 (11:33→17:29)
[2021-09-26] MEDS ORDERED: *HR* HYDROmorphone PF 0.5 MG/0.5 ML SYRINGE IVP PRN (11:33)
[2021-09-26] MEDS ORDERED: ROPIVACAINE/PF/NS 0.25% 1 EACH SYRINGE INTRAART ONE (12:58)
[2021-09-26] MEDS ORDERED: Ropivacaine/PF 0.5% 30 ML VIAL ONE (12:58)
[2021-09-26] MEDS ORDERED: *HR* HYDROcodone/Acet 5/325 mg TABLET PO PRN ×3 (16:50→17:08)
[2021-09-26] MEDS ORDERED: Naloxone 0.4 MG/ML INJ IVP PRN ×2 (16:50→17:08)
[2021-09-26] MEDS ORDERED: *HR* OxyCODONE Immed Rel 5 MG TABLET PO PRN ×2 (16:50→17:08)
[2021-09-26] MEDS ORDERED: Ipratropium/Albuterol Neb 3 ML IH PRN ×2 (16:53→17:08)
[2021-09-26] MEDS ORDERED: Dextrose Gel 15 GM/37.5 ML TUBE PO PRN ×4 (16:56→17:08)
[2021-09-26] MEDS ORDERED: D5% in Water 1,000 ML IVC PRN ×2 (16:56→17:08)
[2021-09-26] MEDS ORDERED: *HR* Dextrose 50 % in Water (Syg) 50 ML SYRINGE IVP PRN ×2 (16:56→17:08)
[2021-09-26] MEDS ORDERED: Ringers Solution, Lactated 500 ML IVC SCH ×2 (17:00→17:08)
[2021-09-26] MEDS ORDERED: Acetaminophen 650 MG RECTAL SUPP RC PRN (17:08)
[2021-09-26] MEDS ORDERED: Insulin LISPRO 300 UNITS/3 ML VIAL SUBQ SCH ×3 (17:15→18:00)
[2021-09-26 18:08] LABS: Basophils # 0.1 K/mcL (0.0-0.2); Basophils % 0.4 %; Eosinophils # 0.2 K/mcL (0.0-0.6); Eosinophils % 1.1 %; Hematocrit 25.5 % (35.3-44.9); Hemoglobin 7.9 g/dL (11.5-15.4); Immature Granulocytes % 1.9 % (0-4); Lymphocytes # 1.3 K/mcL (0.6-4.6); Lymphocytes % 8.8 %; Mean Corpuscular Hemoglobin 27.2 pg (28.0-33.3); Mean Corpuscular Volume 87.9 fL (83.0-100.0); Mean Platelet Volume 9.3 fL (9.4-12.4); Monocytes # 0.3 K/mcL (0.0-1.3); Monocytes % 1.7 %; Neutrophils # 12.8 K/mcL (1.6-8.9); Platelet Count 269 K/mcL (140-400); Red Cell Distribution Width 14.8 % (11.5-14.5); Segmented Neutrophils % 86.1 %; White Blood Count 14.9 K/mcL (4.3-11.1)
[2021-09-26 18:16] LABS: INR 1.2; Prothrombin Time 12.9 Seconds (9.4-12.1)
[2021-09-26 18:19] LABS: Activated Partial Thrombo Time 33.4 Seconds (26.0-36.0)
[2021-09-26] MEDS ORDERED: 0.9 % Sodium Chloride 500 ML IVC ONE (18:33)
[2021-09-26 18:34] LABS: Alanine Aminotransferase 4 Units/L (7-52); Albumin 2.9 g/dL (3.5-5.7); Albumin/Globulin Ratio 0.8 (1.1-2.2); Alkaline Phosphatase 87 Units/L (34-104); Aspartate Amino Transferase 11 Units/L (13-39); BUN/Creatinine Ratio 21 (6-26); Bilirubin,Total 0.7 mg/dL (0.3-1.0); Blood Urea Nitrogen 18 mg/dL (8-23); Calcium 8.7 mg/dL (8.6-10.3); Carbon Dioxide 31 mEq/L (23-29); Chloride 98 mEq/L (98-107); Globulin 3.7 g/dL (2.4-3.5); Glucose 143 mg/dL (70-105); Osmolality,Calculated 282 (280-300); Phosphorous 4.5 mg/dL (2.7-4.5); Potassium 5.1 mEq/L (3.5-5.1); Sodium 134 mEq/L (136-145); Total Protein 6.6 g/dL (6.4-8.9); eGFR For African Americans > 60 (> 60); eGFR For Non-African Americans > 60 (> 60)
[2021-09-26] MEDS ORDERED: 0.9 % Sodium Chloride 500 ML ONE (18:37)
[2021-09-26 19:26] LABS: Hematocrit 26.4 % (35.3-44.9); Hemoglobin 8.1 g/dL (11.5-15.4)
[2021-09-26] MEDS: Insulin LISPRO 300 UNITS/3 ML VIAL SUBQ SCH (19:51)
[2021-09-26] MEDS: QUEtiapine Fumarate 100 MG TABLET PO SCH (19:54)
[2021-09-26] MEDS: Melatonin 3 MG TABLET PO SCH (19:54)
[2021-09-26] MEDS: CeFAZolin 2 GM/120 ML BAG IVPB SCH (19:55)
[2021-09-27] MEDS: CeFAZolin 2 GM/120 ML BAG IVPB SCH ×2 (04:59→13:05)
[2021-09-27 05:20] LABS: Basophils % 0.3 %; Eosinophils % 0.1 %; Hematocrit 24.6 % (35.3-44.9); Hemoglobin 7.5 g/dL (11.5-15.4); Immature Granulocytes % 2.6 % (0-4); Lymphocytes # 1.7 K/mcL (0.6-4.6); Lymphocytes % 13.1 %; Mean Corpuscular HGB Conc 30.5 g/dL (31.6-35.5); Mean Corpuscular Hemoglobin 26.8 pg (28.0-33.3); Mean Corpuscular Volume 87.9 fL (83.0-100.0); Mean Platelet Volume 9.6 fL (9.4-12.4); Monocytes # 0.8 K/mcL (0.0-1.3); Monocytes % 6.1 %; Neutrophils # 10.2 K/mcL (1.6-8.9); Platelet Count 267 K/mcL (140-400); Red Cell Distribution Width 14.7 % (11.5-14.5); Segmented Neutrophils % 77.8 %; White Blood Count 13.1 K/mcL (4.3-11.1)
[2021-09-27 06:00] LABS: BUN/Creatinine Ratio 27 (6-26); Blood Urea Nitrogen 23 mg/dL (8-23); Calcium 8.5 mg/dL (8.6-10.3); Carbon Dioxide 29 mEq/L (23-29); Chloride 98 mEq/L (98-107); Glucose 118 mg/dL (70-105); Osmolality,Calculated 287 (280-300); Potassium 4.4 mEq/L (3.5-5.1); Sodium 136 mEq/L (136-145); eGFR For African Americans > 60 (> 60); eGFR For Non-African Americans > 60 (> 60)
[2021-09-27] MEDS: Insulin LISPRO 300 UNITS/3 ML VIAL SUBQ SCH ×4 (07:34→20:31)
[2021-09-27] MEDS ORDERED: Metoprolol XL (24 HR) Succ 25 MG TAB.ER.24H PO SCH (09:00)
[2021-09-27] MEDS ORDERED: Furosemide 20 MG TABLET PO SCH (09:00)
[2021-09-27] MEDS ORDERED: lisinopriL 5 MG TABLET PO SCH (09:00)
[2021-09-27] MEDS ORDERED: allopurinoL 100 MG TABLET PO SCH (09:00)
[2021-09-27] MEDS: QUEtiapine Fumarate 100 MG TABLET PO SCH ×2 (09:38→20:12)
[2021-09-27] MEDS: Aspirin Enteric Coated 81 MG Tablet PO SCH (09:38)
[2021-09-27] MEDS: Melatonin 3 MG TABLET PO SCH (20:12)
[2021-09-27] MEDS ORDERED: *HR* HYDROmorphone (PF) 1 MG/ML SYRINGE IVP ONE (22:03)
[2021-09-27] MEDS ORDERED: ALPRAZolam 0.5 MG TABLET PO ONE (23:17)
[2021-09-28 03:30] LABS: Basophils # 0.1 K/mcL (0.0-0.2); Basophils % 0.5 %; Eosinophils # 0.8 K/mcL (0.0-0.6); Eosinophils % 7.8 %; Hematocrit 21.3 % (35.3-44.9); Hemoglobin 6.5 g/dL (11.5-15.4); Immature Granulocytes % 3.3 % (0-4); Lymphocytes # 2.5 K/mcL (0.6-4.6); Lymphocytes % 25.4 %; Mean Corpuscular HGB Conc 30.5 g/dL (31.6-35.5); Mean Corpuscular Volume 88.4 fL (83.0-100.0); Mean Platelet Volume 9.3 fL (9.4-12.4); Monocytes # 0.8 K/mcL (0.0-1.3); Monocytes % 8.5 %; Neutrophils # 5.3 K/mcL (1.6-8.9); Platelet Count 232 K/mcL (140-400); Red Blood Count 2.41 M/mcL (3.82-4.97); Red Cell Distribution Width 14.8 % (11.5-14.5); Segmented Neutrophils % 54.5 %; White Blood Count 9.7 K/mcL (4.3-11.1)
[2021-09-28 03:34] LABS: BUN/Creatinine Ratio 28 (6-26); Blood Urea Nitrogen 23 mg/dL (8-23); Calcium 7.9 mg/dL (8.6-10.3); Carbon Dioxide 28 mEq/L (23-29); Chloride 100 mEq/L (98-107); Glucose 105 mg/dL (70-105); Magnesium 1.9 mg/dL (1.6-2.6); Osmolality,Calculated 288 (280-300); Phosphorous 3.5 mg/dL (2.7-4.5); Potassium 4.4 mEq/L (3.5-5.1); Sodium 137 mEq/L (136-145); eGFR For African Americans > 60 (> 60); eGFR For Non-African Americans > 60 (> 60)
[2021-09-28] MEDS ORDERED: 0.9 % Sodium Chloride 250 ML IVC SCH (07:30)
[2021-09-28] MEDS: QUEtiapine Fumarate 100 MG TABLET PO SCH ×2 (08:54→20:01)
[2021-09-28] MEDS: Metoprolol XL (24 HR) Succ 25 MG TAB.ER.24H PO SCH (08:54)
[2021-09-28] MEDS: Aspirin Enteric Coated 81 MG Tablet PO SCH (08:55)
[2021-09-28] MEDS: Insulin LISPRO 300 UNITS/3 ML VIAL SUBQ SCH ×4 (08:55→20:25)
[2021-09-28] MEDS: *HR* HYDROcodone/Acet 5/325 mg TABLET PO PRN ×3 (10:57→20:03)
[2021-09-28 18:01] LABS: Hematocrit 25.9 % (35.3-44.9)
[2021-09-28 18:02] LABS: Hemoglobin 8.1 g/dL (11.5-15.4)
[2021-09-28] MEDS: Melatonin 3 MG TABLET PO SCH (20:01)
[2021-09-29] MEDS: *HR* HYDROcodone/Acet 5/325 mg TABLET PO PRN ×2 (00:04→04:12)
[2021-09-29 07:15] LABS: Basophils # 0.1 K/mcL (0.0-0.2); Basophils % 0.8 %; Eosinophils % 9.4 %; Hematocrit 26.4 % (35.3-44.9); Hemoglobin 8.2 g/dL (11.5-15.4); Immature Granulocytes % 3.7 % (0-4); Lymphocytes # 2.8 K/mcL (0.6-4.6); Lymphocytes % 26.3 %; Mean Corpuscular HGB Conc 31.1 g/dL (31.6-35.5); Mean Corpuscular Hemoglobin 28.1 pg (28.0-33.3); Mean Corpuscular Volume 90.4 fL (83.0-100.0); Mean Platelet Volume 9.5 fL (9.4-12.4); Monocytes % 9.7 %; Neutrophils # 5.3 K/mcL (1.6-8.9); Platelet Count 225 K/mcL (140-400); Red Blood Count 2.92 M/mcL (3.82-4.97); Red Cell Distribution Width 15.3 % (11.5-14.5); Segmented Neutrophils % 50.1 %; White Blood Count 10.6 K/mcL (4.3-11.1)
[2021-09-29 07:32] LABS: Magnesium 1.9 mg/dL (1.6-2.6); Phosphorous 3.2 mg/dL (2.7-4.5)
[2021-09-29] MEDS: Insulin LISPRO 300 UNITS/3 ML VIAL SUBQ SCH ×2 (07:34→13:09)
[2021-09-29] MEDS: QUEtiapine Fumarate 100 MG TABLET PO SCH (10:01)
[2021-09-29] MEDS: Metoprolol XL (24 HR) Succ 25 MG TAB.ER.24H PO SCH (10:01)
[2021-09-29] MEDS: Aspirin Enteric Coated 81 MG Tablet PO SCH (10:01)
[2021-09-29 12:31] VITALS: BP 120/70; PULSE 78; TEMP 98.2; O2SAT 96
[2021-09-29 12:50] LABS: Adenovirus Not Detected (Not Detect); Bordetella Pertussis Not Detected (Not Detect); Chlamydophila pneumoniae Not Detected (Not Detect); Coronavirus 229E Not Detected (Not Detect); Coronavirus HKU1 Not Detected (Not Detect); Coronavirus NL63 Not Detected (Not Detect); Coronavirus OC43 Not Detected (Not Detect); Human Metapneumovirus Not Detected (Not Detect); Human Rhinovirus/Enterovirus Not Detected (Not Detect); Influenza A Subtype 2009 H1 Not Detected (Not Detect); Influenza B Not Detected (Not Detect); Mycoplasma pneumoniae Not Detected (Not Detect); Parainfluenza Virus 1 Not Detected (Not Detect); Parainfluenza Virus 2 Not Detected (Not Detect); Parainfluenza Virus 3 Not Detected (Not Detect); Parainfluenza Virus 4 Not Detected (Not Detect); Respiratory Syncytial Virus Not Detected (Not Detect); SARS-CoV-2 Not Detected (Not Detect)
== END 2021-09-29 16:20 | DRG 239 ==
LOC: SAMDAY 08:19 → 2ANU 17:06 → SUATTDRO 17:06
PROVIDERS: ADMIT Student in an Organized Health Care Education/Training Program; ATTEND Internal Medicine

== ENCOUNTER 2022-02-27 21:32 | Inpatient (IN) ==
[2022-02-27 23:07] LABS: Basophils # 0.1 K/mcL (0.0-0.2); Basophils % 0.4 %; Eosinophils # 0.1 K/mcL (0.0-0.6); Eosinophils % 0.7 %; Hematocrit 32.4 % (35.3-44.9); Hemoglobin 10.5 g/dL (11.5-15.4); Lymphocytes # 1.7 K/mcL (0.6-4.6); Lymphocytes % 10.9 %; Mean Corpuscular HGB Conc 32.4 g/dL (31.6-35.5); Mean Corpuscular Hemoglobin 26.8 pg (28.0-33.3); Mean Corpuscular Volume 82.7 fL (83.0-100.0); Monocytes # 1.2 K/mcL (0.0-1.3); Monocytes % 7.6 %; Neutrophils # 12.7 K/mcL (1.6-8.9); Platelet Count 246 K/mcL (140-400); Red Blood Count 3.92 M/mcL (3.82-4.97); Red Cell Distribution Width 14.1 % (11.5-14.5); Segmented Neutrophils % 79.4 %
[2022-02-27 23:15] LABS: INR 1.2; Prothrombin Time 13.7 Seconds (9.4-12.1)
[2022-02-27 23:17] LABS: Activated Partial Thrombo Time 31.5 Seconds (26.0-36.0)
[2022-02-27 23:39] LABS: Alanine Aminotransferase 9 Units/L (7-52); Albumin 3.1 g/dL (3.5-5.7); Albumin/Globulin Ratio 0.9 (1.1-2.2); Alkaline Phosphatase 78 Units/L (34-104); Aspartate Amino Transferase 23 Units/L (13-39); BUN/Creatinine Ratio 27 (6-26); Bilirubin,Direct 0.3 mg/dL (0.0-0.2); Bilirubin,Indirect 0.6 mg/dL (0.0-1.0); Bilirubin,Total 0.9 mg/dL (0.3-1.0); Blood Urea Nitrogen 26 mg/dL (8-23); C-Reactive Protein 152 mg/L (Less than 10); Calcium 8.8 mg/dL (8.6-10.3); Carbon Dioxide 21 mEq/L (23-29); Chloride 108 mEq/L (98-107); Globulin 3.6 g/dL (2.4-3.5); Glucose 138 mg/dL (70-105); Lactate Dehydrogenase 152 Units/L (140-271); Magnesium 1.6 mg/dL (1.6-2.6); Osmolality,Calculated 299 (280-300); Phosphorous 2.8 mg/dL (2.7-4.5); Potassium 2.7 mEq/L (3.5-5.1); Sodium 141 mEq/L (136-145); Total Protein 6.7 g/dL (6.4-8.9); Troponin I 0.05 ng/mL (< 0.04); eGFR For African Americans > 60 (> 60); eGFR For Non-African Americans 56 (> 60)
[2022-02-27 23:59] LABS: Ferritin 269 ng/mL (10-120)
[2022-02-28] MEDS ORDERED: 0.9 % Sodium Chloride 500 ML IVC ONE (00:41)
[2022-02-28] MEDS ORDERED: Potassium Chloride Elixir 20 MEQ/15 ML UDC PO ONE (00:41)
[2022-02-28] MEDS ORDERED: Ipratropium/Albuterol Neb 3 ML IH ONE (01:36)
[2022-02-28] MEDS ORDERED: methylPREDNISolone 125 MG/2 ML VIAL IVP ONE (01:55)
[2022-02-28] MEDS ORDERED: Ondansetron 4 MG/2 ML VIAL IVP PRN (05:56)
[2022-02-28] MEDS ORDERED: Acetaminophen 325 MG TABLET PO PRN (05:56)
[2022-02-28] MEDS ORDERED: Naloxone 0.4 MG/ML INJ IVP PRN (05:56)
[2022-02-28] MEDS ORDERED: Melatonin 3 MG TABLET PO PRN (05:56)
[2022-02-28 07:47] LABS: Basophils # 0.1 K/mcL (0.0-0.2); Basophils % 0.3 %; Hemoglobin 10.6 g/dL (11.5-15.4); Immature Granulocytes % 1.4 % (0-4); Lymphocytes % 4.5 %; Mean Corpuscular HGB Conc 31.2 g/dL (31.6-35.5); Mean Corpuscular Hemoglobin 26.6 pg (28.0-33.3); Mean Corpuscular Volume 85.4 fL (83.0-100.0); Mean Platelet Volume 10.3 fL (9.4-12.4); Monocytes # 0.4 K/mcL (0.0-1.3); Monocytes % 1.7 %; Neutrophils # 19.7 K/mcL (1.6-8.9); Platelet Count 234 K/mcL (140-400); Red Blood Count 3.98 M/mcL (3.82-4.97); Segmented Neutrophils % 92.1 %; White Blood Count 21.4 K/mcL (4.3-11.1)
[2022-02-28 07:52] LABS: INR 1.3; Prothrombin Time 14.3 Seconds (9.4-12.1)
[2022-02-28 08:04] LABS: Troponin I 0.05 ng/mL (< 0.04)
[2022-02-28 08:34] LABS: Alanine Aminotransferase 8 Units/L (7-52); Albumin 3.3 g/dL (3.5-5.7); Alkaline Phosphatase 81 Units/L (34-104); Aspartate Amino Transferase 28 Units/L (13-39); BUN/Creatinine Ratio 30 (6-26); Bilirubin,Total 1.1 mg/dL (0.3-1.0); Blood Urea Nitrogen 27 mg/dL (8-23); Calcium 8.6 mg/dL (8.6-10.3); Carbon Dioxide 15 mEq/L (23-29); Chloride 109 mEq/L (98-107); Globulin 3.3 g/dL (2.4-3.5); Glucose 179 mg/dL (70-105); Osmolality,Calculated 302 (280-300); Potassium 3.9 mEq/L (3.5-5.1); Sodium 141 mEq/L (136-145); Total Protein 6.6 g/dL (6.4-8.9); eGFR For African Americans > 60 (> 60); eGFR For Non-African Americans > 60 (> 60)
[2022-02-28 09:47] LABS: Bacteria,Urine Many per hpf (None-Few); Bilirubin,Urine Negative (Negative); Blood,Urine Small (Negative); Clarity,Urine Ex.Turbid (Clear); Color,Urine Yellow (Yellow); Glucose,Urine (UA) Normal (Normal); Hyaline Casts,Urine Many per lpf (None Seen); Ketones,Urine Trace mg/dL (Negative); Leukocyte Esterase,Urine Large (Negative); Nitrite,Urine Negative (Negative); PH,Urine 5.5 pH Units (5.0-8.0); Protein,Urine 70 mg/dL (Neg-Trace); RBC,Urine 15-30 per hpf (0-3); Specific Gravity,Urine 1.018 (1.010-1.025); Squamous Epithelial Cell,Urine Few per hpf (None-Few); Transitional Epi Cells,Urine Few per hpf (None-Few); WBC,Urine TNTC per hpf (0-3)
[2022-02-28 11:25] LABS: VBG HCO3 20 mEq/L (21-27); VBG PCO2 33 mmHg (41-51); VBG PH 7.38 pH Units (7.32-7.42); VBG PO2 186 mmHg (25-50)
[2022-02-28] MEDS ORDERED: Metoprolol XL (24 HR) Succ 25 MG TAB.ER.24H PO SCH (14:45)
[2022-02-28] MEDS: *HR* Metoprolol 5 MG/5 ML VIAL IVP SCH ×2 (18:06→21:53)
[2022-02-28] MEDS: *HR* Heparin 5,000 UNIT/ML VIAL SQ SCH (18:07)
[2022-03-01] MEDS: *HR* Metoprolol 5 MG/5 ML VIAL IVP SCH ×3 (05:18→17:19)
[2022-03-01] MEDS: *HR* Heparin 5,000 UNIT/ML VIAL SQ SCH ×2 (05:19→17:46)
[2022-03-01] MEDS ORDERED: *HR* LORazepam 2 MG/ML VIAL IVP ONE ×2 (05:25→20:26)
[2022-03-01] MEDS ORDERED: Morphine Sulfate 2 MG/ML SYRINGE IVP ONE (06:26)
[2022-03-01 07:41] LABS: Mean Corpuscular Hemoglobin 26.6 pg (28.0-33.3); Red Cell Distribution Width 14.4 % (11.5-14.5)
[2022-03-01 07:42] LABS: Hematocrit 35.8 % (35.3-44.9); Hemoglobin 11.2 g/dL (11.5-15.4); Mean Corpuscular HGB Conc 31.3 g/dL (31.6-35.5); Mean Platelet Volume 10.5 fL (9.4-12.4); Platelet Count 368 K/mcL (140-400); Red Blood Count 4.21 M/mcL (3.82-4.97); White Blood Count 27.9 K/mcL (4.3-11.1)
[2022-03-01 09:44] LABS: BUN/Creatinine Ratio 39 (6-26); Blood Urea Nitrogen 34 mg/dL (8-23); Calcium 9.1 mg/dL (8.6-10.3); Carbon Dioxide 21 mEq/L (23-29); Chloride 109 mEq/L (98-107); Glucose 213 mg/dL (70-105); Magnesium 2.6 mg/dL (1.6-2.6); Osmolality,Calculated 306 (280-300); Potassium 3.8 mEq/L (3.5-5.1); Sodium 141 mEq/L (136-145); eGFR For African Americans > 60 (> 60); eGFR For Non-African Americans > 60 (> 60)
[2022-03-01] MEDS: D5% in 0.45% NACL 1,000 ML IVC SCH ×2 (10:50→13:31)
[2022-03-01] MEDS ORDERED: Remdesivir 200 MG in 0.9 % Sodium Chloride 100 ML IVPB ONE ×2 (11:00→12:00)
[2022-03-01] MEDS ORDERED: Haloperidol Lactate 5 MG/ML VIAL IVP ONE (17:31)
[2022-03-01] MEDS: cefTRIAXone 1,000 MG in 0.9 % Sodium Chloride 10 ML IVP SCH (19:58)
[2022-03-02] MEDS: *HR* Metoprolol 5 MG/5 ML VIAL IVP SCH ×4 (01:50→17:19)
[2022-03-02] MEDS ORDERED: Morphine Sulfate 2 MG/ML SYRINGE IVP ONE (01:56)
[2022-03-02 04:55] LABS: Hematocrit 33.3 % (35.3-44.9); Hemoglobin 10.5 g/dL (11.5-15.4); Mean Corpuscular HGB Conc 31.5 g/dL (31.6-35.5); Mean Corpuscular Hemoglobin 26.7 pg (28.0-33.3); Mean Corpuscular Volume 84.7 fL (83.0-100.0); Mean Platelet Volume 10.2 fL (9.4-12.4); Platelet Count 294 K/mcL (140-400); Red Blood Count 3.93 M/mcL (3.82-4.97); Red Cell Distribution Width 14.3 % (11.5-14.5); White Blood Count 15.8 K/mcL (4.3-11.1)
[2022-03-02 05:12] LABS: Alanine Aminotransferase 11 Units/L (7-52); Albumin 3.1 g/dL (3.5-5.7); Albumin/Globulin Ratio 0.9 (1.1-2.2); Alkaline Phosphatase 73 Units/L (34-104); Aspartate Amino Transferase 24 Units/L (13-39); BUN/Creatinine Ratio 39 (6-26); Bilirubin,Direct 0.3 mg/dL (0.0-0.2); Bilirubin,Indirect 0.3 mg/dL (0.0-1.0); Bilirubin,Total 0.6 mg/dL (0.3-1.0); Blood Urea Nitrogen 31 mg/dL (8-23); Calcium 8.7 mg/dL (8.6-10.3); Carbon Dioxide 23 mEq/L (23-29); Chloride 112 mEq/L (98-107); Globulin 3.6 g/dL (2.4-3.5); Glucose 236 mg/dL (70-105); Magnesium 2.3 mg/dL (1.6-2.6); Osmolality,Calculated 312 (280-300); Phosphorous 1.4 mg/dL (2.7-4.5); Potassium 3.3 mEq/L (3.5-5.1); Sodium 144 mEq/L (136-145); Total Protein 6.7 g/dL (6.4-8.9); eGFR For African Americans > 60 (> 60); eGFR For Non-African Americans > 60 (> 60)
[2022-03-02] MEDS: *HR* Heparin 5,000 UNIT/ML VIAL SQ SCH ×2 (06:23→17:19)
[2022-03-02] MEDS: D5% in 0.45% NACL 1,000 ML IVC SCH (06:25)
[2022-03-02] MEDS ORDERED: Potassium Phosphate 44 MEQ in 0.9 % Sodium Chloride 250 ML IVPB ONE (10:57)
[2022-03-02] MEDS ORDERED: Remdesivir 100 MG in 0.9 % Sodium Chloride 100 ML IVPB SCH (11:00)
[2022-03-02] MEDS ORDERED: QUEtiapine Fumarate 25 MG TABLET PO SCH (21:00)
[2022-03-02] MEDS: cefTRIAXone 1,000 MG in 0.9 % Sodium Chloride 10 ML IVP SCH (21:18)
[2022-03-03] MEDS: D5% in 0.45% NACL 1,000 ML IVC SCH ×2 (00:52→07:34)
[2022-03-03] MEDS: *HR* Metoprolol 5 MG/5 ML VIAL IVP SCH ×2 (00:52→05:53)
[2022-03-03] MEDS ORDERED: Perflutren Lipid Microsphere 1.3 ML in 0.9 % Sodium Chloride 8.7 ML IVP PRN (02:20)
[2022-03-03] MEDS ORDERED: *HR* EPINEPHrine 10 MG/10 ML MDV IVC ONE (03:22)
[2022-03-03] MEDS ORDERED: Furosemide 40 MG/4 ML VIAL ONE (03:26)
[2022-03-03] MEDS ORDERED: Dexmedetomidine HCl 400 MCG/100 ML MLS IVC ONE (03:50)
[2022-03-03] MEDS ORDERED: Iopamidol - 370 500 ML MLS IVP ONE (04:28)
[2022-03-03 04:42] LABS: ABG Base Excess -18 mEq/L (-2 to 3); ABG HCO3 11 mEq/L (21-27); ABG Oxygen Saturation 98 % (95-98); ABG PCO2 34 mmHg (35-45); ABG PH 7.09 pH Units (7.32-7.45); ABG PO2 140 mmHg (85-104); ABG TCO2 12 mEq/L (20-26)
[2022-03-03 04:43] VITALS: TEMP 98.2
[2022-03-03] MEDS ORDERED: Sodium Bicarbonate 150 MEQ in D5% in Water 1,000 ML IVC SCH (05:15)
[2022-03-03] MEDS ORDERED: Norepinephrine 4 MG/254 ML IV.SOLN IVC SCH (05:15)
[2022-03-03] MEDS ORDERED: 0.9 % Sodium Chloride 250 ML ONE (05:17)
[2022-03-03] MEDS ORDERED: *HR* Norepinephrine 4 MG/4 ML VIAL IVC ONE (05:17)
[2022-03-03] MEDS ORDERED: Dexmedetomidine HCl 400 MCG/100 ML MLS IVC SCH (05:30)
[2022-03-03] MEDS ORDERED: Azithromycin 500 MG in 0.9 % Sodium Chloride 250 ML IVPB SCH (06:00)
[2022-03-03] MEDS ORDERED: Norepinephrine 32 MG/250 ML IV.SOLN IVC SCH (06:15)
[2022-03-03] MEDS ORDERED: Vasopressin 40 UNIT in D5% in Water 100 ML IVC SCH (06:30)
[2022-03-03 06:34] LABS: Albumin/Globulin Ratio 0.9 (1.1-2.2); Alkaline Phosphatase 95 Units/L (34-104); BUN/Creatinine Ratio 26 (6-26); Bilirubin,Direct 0.7 mg/dL (0.0-0.2); Bilirubin,Indirect 0.5 mg/dL (0.0-1.0); Bilirubin,Total 1.2 mg/dL (0.3-1.0); Blood Urea Nitrogen 42 mg/dL (8-23); Carbon Dioxide 12 mEq/L (23-29); Chloride 112 mEq/L (98-107); Globulin 3.2 g/dL (2.4-3.5); Glucose 271 mg/dL (70-105); Osmolality,Calculated 318 (280-300); Phosphorous 7.8 mg/dL (2.7-4.5); Potassium 5.2 mEq/L (3.5-5.1); Sodium 144 mEq/L (136-145); Total Protein 6.2 g/dL (6.4-8.9); Troponin I 0.55 ng/mL (< 0.04); eGFR For African Americans 38 (> 60); eGFR For Non-African Americans 31 (> 60)
[2022-03-03 06:47] LABS: Prothrombin Time 22.5 Seconds (9.4-12.1)
[2022-03-03 06:54] LABS: Alanine Aminotransferase 1146 Units/L (7-52); Aspartate Amino Transferase > 3000 Units/L (13-39); Magnesium 2.5 mg/dL (1.6-2.6)
[2022-03-03] MEDS: *HR* Heparin 5,000 UNIT/ML VIAL SQ SCH (07:30)
[2022-03-03] MEDS ORDERED: Piperacillin/Tazobactam 3.375 GM in 0.9 % Sodium Chloride Mini Bag 100 ML IVPB SCH (08:00)
[2022-03-03] MEDS ORDERED: Morphine Sulfate 2 MG/ML SYRINGE IVP ONE (08:23)
[2022-03-03] MEDS ORDERED: *HR* LORazepam 2 MG/ML VIAL ONE (08:26)
[2022-03-03] MEDS: *HR* LORazepam 2 MG/ML VIAL IVP ONE ×2 (08:30→09:21)
[2022-03-03 10:21] VITALS: BP 61/36; PULSE 30; O2SAT 78
== END 2022-03-03 12:17 | disposition expired | DRG 871 ==
LOC: 2NNU 21:32 → EMEROOARM 21:32 → SUATTDRO 02-28 05:10 → 2NNU 02-28 05:45 → ICNU 03-03 04:13
PROVIDERS: ADMIT Family Medicine; ATTEND Internal Medicine